=== PATIENT | female | born 1955 | race Caucasian/White ===

== ENCOUNTER 2017-07-05 15:16 | Inpatient (IN) | payer OTHER ==
[~2017-07-05] VITALS: Ht 162.6 cm; Wt 125.7 kg
[~2017-07-05 15:16] MED LIST: ATV5 PO; CHOL100010 PO; CIPR-255 PO; CYAN100T PO; CYM/30 PO; MELO7.5T5 PO; MULT-506 PO
[2017-07-05 15:24] VITALS: Ht 162.6 cm; Wt 125.7 kg
[2017-07-05] MEDS ORDERED: HYDROmorphone INJ 1 MG/ML SYR IV PRN ×2 (17:00→20:30)
[2017-07-05] MEDS ORDERED: ONDANSETRON INJ 2 MG/ML 2 ML VIAL IV PRN ×2 (17:00→20:30)
[2017-07-05] MEDS ORDERED: SODIUM CHLORIDE 0.9% 1000ML 1,000 ML IV ONE (17:00)
--- NOTE | 2017-07-05 17:12 | EMERGENCY ROOM VISIT NOTE ---
History First contact with patient: 16:37 Chief Complaint: FLANK PAIN Stated Complaint: RIGHT FLANK PAIN, UNABLE TO URINATE, NAUSEA History of Present Illness The patient is a 62 year old female who presents to the Emergency Room with complaints of right flank pain that started at approximate 5 AM this morning. She describes it as a sharp, stabbing sensation that radiates around the front of her abdomen. She has had nausea without vomiting. She has felt chills. She has not taken her temperature at home. She has tried Aleve for the pain with minimal relief. The patient has a history of kidney stones. She denies any hematuria. She does note that she hasn't urinated since 4:30 this morning. Review of Systems 10 system review performed and negative unless noted in HPI or below Past Medical/Surgical History Medical Problems: (1) ARF (acute renal failure) (2) Calculus Of Ureter (3) Chronic Kidney Disease, Unspecified (4) Depressive Disorder Nec (5) Diab Linette Wo Compl, Type Ii Or Unspec Type, Not Uncntrld (6) Fibromyalgia (7) Hyperlipidemia Nec/Nos (8) Kidney stones (9) Lumbago (10) Migraine Unspecified W/O Intract Mgrn W/O Status Migrainosus (11) Morbid Obesity (12) Parathyroid Disorder Nos (13) Solitary kidney Surgical Problems: (1) History of delivery Family History FH: diabetes mellitus FH: hypertension FH: kidney disease Social History Smoking Status: Never Smoker Alcohol Use: none Drug Use: none Marital Status: Occupation Status: retired Current/Historical Medications Scheduled Aspirin (Aspirin Ec), 81 MG PO DAILY Dapagliflozin Propanediol (Farxiga), 5 MG PO DAILY Lisinopril (Lisinopril), 1 TAB PO DAILY Meloxicam (Mobic), 15 MG PO DAILY Scheduled PRN Lorazepam (Ativan), 0.5 MG PO DIRECTED PRN for PRN Physical Exam Vital Signs Date Time Temp Pulse Resp B/P (MAP) Pulse Ox O2 Delivery O2 Flow Rate FiO2 07/05/17 19:17 96 16 101/52 92 Room Air 07/05/17 18:37 92 20 119/58 97 Room Air 07/05/17 15:24 36.6 83 22 126/70 96 Room Air Physical Exam GENERAL: 62-year-old female, in obvious discomfort,, SKIN: The skin was without rashes, erythema, edema, or bruising. HEAD: Normocephalic atraumatic. MOUTH: Mucous membranes moderately dry NECK: Supple without nuchal rigidity. No lymphadenopathy. Cervical spine is nontender. No JVD. HEART: Regular rate and rhythm without murmurs gallops or rubs. LUNGS: Clear to auscultation bilaterally without wheezes, rales or rhonchi. No accessory muscle use. ABDOMEN: Positive bowel sounds x 4.Soft, mild tenderness in the right lower quadrant, without organomegaly. No guarding or rebound tenderness. Right-sided CVA tenderness noted. MUSCULOSKELETAL: No muscle atrophy, erythema, or edema noted. . Strength 5/5 throughout. NEURO: Patient was alert and oriented to person place and time. Normal sensation to touch. No focal neurological deficits. Medical Decision & Procedures ER Provider Diagnostic Interpretation: CT abdomen and pelvis without contrast Patient Name: VENU WATSON Unit Number: [id number] Dictated: 07/05/171723 Transcribed: 07/05/171723 [employer] Printed Date/Time: [~ rep prt dt]/[~ rep prt tm] [~ rep ct labl] - [~ rep ct ivnm] [facility] [place] [address] Dictated: 07/05/171723 Transcribed: 07/05/171723 Press About Us Printed Date/Time: [~ rep prt dt]/[~ rep prt tm] [~ rep ct labl] - [~ rep ct ivnm] IMPRESSION: 1. An obstructing 11 mm stone within the right ureteropelvic junction resulting in moderate right hydronephrosis. 2. Additional right-sided nephrolithiasis. 3. Cholelithiasis. 4. Atrophic left kidney. Electronically signed by: Kane Schmidt M.D. 07/05/2017 5:31 PM Dictated Date/Time: 07/05/2017 5:24 PM The status of this report is Signed. Draft = Not yet reviewed or approved by Radiologist. Signed = Reviewed and approved by Radiologist. <AttendingPhy></AttendingPhy> <FamilyPhy>Ángela Jones M.D.</FamilyPhy> < PrimaryPhy>Ángela Jones M.D.</PrimaryPhy> <UnitNumber>[id number]</UnitNumber > <VisitNumber>[id number]</VisitNumber> <PatientName>VENU WATSON</ PatientName> <DateOfBirth>1955</DateOfBirth> <Location>[facility]</Location> < ServiceDate>07/05/17</ServiceDate> <MNE>ESINDI</MNE> <OrderingPhy>Alma Rosa Castillo PA-C</OrderingPhy> <OrderingPhyMNE>f rep ord dr baez</OrderingPhyMNE> < DictatingPhyMNE>f rep dict dr baez</DictatingPhyMNE> <CCListMNE>f rep ct mne</ CCListMNE> <AdmittingPhyMNE>f pt admit dr baez</AdmittingPhyMNE> <AttendingPhyMNE >f pt attend dr baez</AttendingPhyMNE> <ConsultingPhyMNE>f pt consult dr baez</ConsultingPhyMNE> <FamilyPhyMNE>f pt fam dr baez</FamilyPhyMNE> <OtherPhyMNE>f pt other dr baez</OtherPhyMNE> < PrimaryPhyMNE>f pt prim care dr baez</PrimaryPhyMNE> <ReferringPhyMNE>f pt referring dr baez</ReferringPhyMNE> Laboratory Results Test 07/05/17 16:58 Prothrombin Time 10.5 SECONDS (9.0-12.0) Prothromb Time International Ratio 1.0 (0.9-1.1) Activated Partial Thromboplast Time 28.0 SECONDS (21.0-31.0) Partial Thromboplastin Ratio 1.1 Estimated Average Glucose 151 mg/dl Hemoglobin A1c 6.9 % (4.5-5.6) Magnesium Level 2.1 mg/dl (1.8-2.4) Total Bilirubin 0.6 mg/dl (0.2-1) Aspartate Amino Transf (AST/SGOT) 19 U/L (15-37) Alanine Aminotransferase (ALT/SGPT) 26 U/L (12-78) Alkaline Phosphatase 96 U/L (45-117) Total Protein 8.1 gm/dl (6.4-8.2) Albumin 3.8 gm/dl (3.4-5.0) Globulin 4.3 gm/dl (2.5-4.0) Albumin/Globulin Ratio 0.9 (0.9-2) Medications Administered Medications (Trade) Dose Ordered Sig/Mumtaz Route Start Time Stop Time Status Last Admin Dose Admin Hydromorphone HCl (Dilaudid Inj) 1 mg Q2H PRN IV 07/05/17 17:00 07/05/17 21:18 DC 07/05/17 17:05 1 MG Ondansetron HCl (Zofran Inj) 4 mg Q2H PRN IV 07/05/17 17:00 07/05/17 22:41 DC 07/05/17 17:05 4 MG Sodium Chloride 1,000 ml @ 999 mls/hr Q1H1M ONCE IV 07/05/17 17:00 07/05/17 18:00 DC 07/05/17 18:37 999 MLS/HR Ceftriaxone Sodium 1 gm/ Dextrose 50 ml @ 100 mls/hr ONE STAT IV 07/05/17 19:04 07/05/17 19:33 DC 07/05/17 19:15 100 MLS/HR Sodium Chloride 1,000 ml @ 100 mls/hr Q10H IV 07/05/17 19:45 08/04/17 19:44 07/06/17 06:00 100 MLS/HR ED Course Patient was seen and examined Vital signs including blood pressure were reviewed medications list was verified with patient Labs were obtained, and a saline lock was established The patient was medicated with Dilaudid and Zofran. She was hydrated with 1 L of normal saline. Imaging was performed and reviewed Upon reevaluation, the patient's pain was much improved. We discussed the results of her workup. She was understanding. The patient was given 1 dose of ceftriaxone 1 g IV The case was discussed with my supervising physician I consulted Dr. Salinas from urology. She agreed to take the patient to the OR for a stent The case was also discussed with the [facility] hospitalist group kindly agreed to admit the patient after the procedure Medical Decision Differential diagnosis: Ureteral stone, pyelonephritis, musculoskeletal pain, viral GI illness This patient is a 62-year-old female that presents to the emergency department complaining of right flank pain. On exam, the patient was significantly uncomfortable. Her labs reveal acute renal failure with a creatinine of 2.5. This is off from her baseline of around 1. She also has leukocytosis. The patient has not been producing urine. There was only enough urine to send for a culture. She was covered with 1 dose of ceftriaxone in case of infection. The patient has an atrophic left kidney. There is concern for acute renal failure secondary to a proximal 11 mm stone on the right. The patient will go straight to the operating room for a ureteral stent. The patient's vital signs remained stable in the emergency department. This chart was completed in part utilizing [employer] Speech Voice Recognition software. Attempts were made to minimize the grammatical errors, random word insertions, pronoun errors and incomplete sentences. Any formal questions or concerns about the content, text or information contained within the body of this dictation should be directly addressed to the provider for clarification. Medication Reconcilliation Current Medication List: was personally reviewed by me Blood Pressure Screening Patient's blood pressure: Normal blood pressure Consults Consulting Physician: Additional Consults: Consulted Physician: Dr. Katelyn Rojo Impression Primary Impression: Renal colic on right side Additional Impression: ARF (acute renal failure) Departure Information Referrals Ángela Jones M.D. (PCP) Patient Instructions [facility] Problem Qualifiers
[2017-07-05] MEDS ORDERED: DAPA1TAB8 (17:13)
[2017-07-05] MEDS ORDERED: LORA-741 PO (17:13)
[2017-07-05] MEDS ORDERED: DAPA1TAB8 PO (17:13)
[2017-07-05] MEDS ORDERED: LISI2.5T5 PO (17:13)
[2017-07-05] MEDS ORDERED: ASPI81TA28 PO (17:13)
[2017-07-05 17:20] LABS: BASO % 0.3 %; BASO ABS # 0.06 K/uL (0-0.2); EOS % 1.8 %; EOS ABS # 0.36 K/uL (0-0.5); HEMATOCRIT 47.4 % (37-47); HEMOGLOBIN 15.3 g/dL (12.0-16.0); IG# 0.06 K/uL (0.00-0.02); LYMPH ABS # 1.97 K/uL (1.2-3.4); MEAN CELL VOLUME 89.9 fL (80-100); MEAN CORPUSCULAR HGB CONC 32.3 g/dl (32-36); MEAN PLATELET VOLUME 9.2 fL (7.4-10.4); MONO % 6.4 %; MONO ABS # 1.26 K/uL (0.11-0.59); NEUT % 81.2 %; NEUT ABS # 16.07 K/uL (1.4-6.5); PLATELET COUNT 252 K/uL (130-400); RED CELL DISTRIBUTION WIDTH CV 14.2 % (11.5-14.5); RED CELL DISTRIBUTION WIDTH SD 46.7 fL (36.4-46.3); WHITE BLOOD COUNT 19.78 K/uL (4.8-10.8)
--- NOTE | 2017-07-05 17:33 | DIAGNOSTIC IMAGING REPORT ---
ABDOMEN AND PELVIS CT WITHOUT CONTRAST CT DOSE: 1928.53 mGy.cm HISTORY: R flank pain hx stones TECHNIQUE: Multiaxial CT images of the abdomen and pelvis were performed without the use of intravenous and oral contrast according to the standard department stone protocol. A dose lowering technique was utilized adhering to the principles of ALARA. COMPARISON STUDY: Abdomen and pelvis CT 10/04/2014. FINDINGS: The lung bases are clear. Calcified gallstones are again noted. The unenhanced liver, spleen, and pancreas are unremarkable. Stable small adrenal gland nodules. These favor benign adenomas. Atrophic left kidney with compensatory hypertrophy of the right kidney. Moderate right perinephric edema and moderate right hydronephrosis secondary to an obstructing 11 mm stone within the right ureteropelvic junction. Bladder is underdistended and not well evaluated. No left-sided hydronephrosis. A few punctate cortical calcifications within the left kidney. A 1.6 cm stone within the right renal pelvis. There are a few additional calculi within the lower pole of the right kidney. No retroperitoneal lymphadenopathy. The uterus and ovaries are unremarkable. Suboptimal evaluation for bowel pathology due to the lack of intravenous and oral contrast. However, there is no definite bowel wall thickening or obstruction. Normal appendix. IMPRESSION: 1. An obstructing 11 mm stone within the right ureteropelvic junction resulting in moderate right hydronephrosis. 2. Additional right-sided nephrolithiasis. 3. Cholelithiasis. 4. Atrophic left kidney. Electronically signed by: Kane Schmidt M.D. 07/05/2017 5:31 PM Dictated Date/Time: 07/05/2017 5:24 PM
[2017-07-05 17:59] LABS: CREATININE 2.52 mg/dl (0.60-1.20)
[2017-07-05 18:00] LABS: ALBUMIN 3.8 gm/dl (3.4-5.0); CALCIUM 9.6 mg/dl (8.5-10.1); POTASSIUM 4.7 mmol/L (3.5-5.1)
[2017-07-05 18:02] LABS: TOTAL PROTEIN 8.1 gm/dl (6.4-8.2)
[2017-07-05] MEDS ORDERED: CEFTRIAXONE SOD INJ 1 GM in DEXTROSE 5% ADD-VANTAGE 50ML 50 ML IV STA (19:04)
[2017-07-05] MEDS ORDERED: CEFTRIAXONE SOD INJ 1 GM ADDVIAL ONE (19:11)
--- NOTE | 2017-07-05 20:15 | Urology Consultation ---
History General Date of Service: Jul 05, 2017. Chief Complaint: renal colic, solitary kidney, stones Primary Care Physician: Ángela Jones M.D. Pt seen a urologist before?: Yes If yes, why?: stones History of Present Illness I am asked by Alma Rosa Castillo PA-C to evaluate and treat patient for stones. She had a ct tonight showing a obstructing 11mm right upj stone. She has mild hydro. She has bumped her creatinine to 3 from baseline 1. she has a atrophic left kidney so right kidney is only functional kidney. She has not had fever. She has had colic pain right side since 5:30am. She has nausea no emesis. Her appetite is poor. She has had stones before. She is anuric for many hours. Imaging Imaging: CT Laboratory Results Past 24 Hours Test 07/05/17 16:58 07/05/17 19:36 Range/Units White Blood Count 19.78 4.8-10.8 K/uL Red Blood Count 5.27 4.2-5.4 M/uL Hemoglobin 15.3 12.0-16.0 g/dL Hematocrit 47.4 37-47 % Mean Corpuscular Volume 89.9 80-100 fL Mean Corpuscular Hemoglobin 29.0 25-34 pg Mean Corpuscular Hemoglobin Concent 32.3 32-36 g/dl Platelet Count 252 130-400 K/uL Mean Platelet Volume 9.2 7.4-10.4 fL Neutrophils (%) (Auto) 81.2 % Lymphocytes (%) (Auto) 10.0 % Monocytes (%) (Auto) 6.4 % Eosinophils (%) (Auto) 1.8 % Basophils (%) (Auto) 0.3 % Neutrophils # (Auto) 16.07 1.4-6.5 K/uL Lymphocytes # (Auto) 1.97 1.2-3.4 K/uL Monocytes # (Auto) 1.26 0.11-0.59 K/uL Eosinophils # (Auto) 0.36 0-0.5 K/uL Basophils # (Auto) 0.06 0-0.2 K/uL RDW Standard Deviation 46.7 36.4-46.3 fL RDW Coefficient of Variation 14.2 11.5-14.5 % Immature Granulocyte % (Auto) 0.3 % Immature Granulocyte # (Auto) 0.06 0.00-0.02 K/uL Sodium Level 140 136-145 mmol/L Potassium Level 4.7 3.5-5.1 mmol/L Chloride Level 103 98-107 mmol/L Carbon Dioxide Level 26 21-32 mmol/L Anion Gap 11.0 3-11 mmol/L Blood Urea Nitrogen 27 7-18 mg/dl Creatinine 2.52 0.60-1.20 mg/dl Est Creatinine Clear Calc Drug Dose 30.0 ml/min Estimated GFR () 22.7 Estimated GFR (Non- 19.6 BUN/Creatinine Ratio 10.7 10-20 Random Glucose 129 70-99 mg/dl Calcium Level 9.6 8.5-10.1 mg/dl Magnesium Level 2.1 1.8-2.4 mg/dl Total Bilirubin 0.6 0.2-1 mg/dl Aspartate Amino Transf (AST/SGOT) 19 15-37 U/L Alanine Aminotransferase (ALT/SGPT) 26 12-78 U/L Alkaline Phosphatase 96 45-117 U/L Total Protein 8.1 6.4-8.2 gm/dl Albumin 3.8 3.4-5.0 gm/dl Globulin 4.3 2.5-4.0 gm/dl Albumin/Globulin Ratio 0.9 0.9-2 Microbiology Results 07/05/17 Urine Culture, Received Pending Labs were reviewed and are within normal limits unless listed below. Labs are available in the chart and at [facility] Past History diabetes, hypertension, other (obesity) Past Surgical History: , ureteral stent Family History FH: diabetes mellitus FH: hypertension FH: kidney disease Social History Hx Tobacco Use In Past Year?: No Smoking: non-smoker Alcohol: never Drug use: none Marital status: Housing status: lives with family Occupation status: employed, retired Immunizations History of Influenza Vaccine: No History of Tetanus Vaccine?: Yes History of Pneumococcal: No History of Hepatitis B Vaccine: Yes History of MDRO No Allergies Coded Allergies: No Known Allergies (Verified , 07/05/17) Medications Home Medications: Home Meds and Scripts Medications Dose Route/Sig Max Daily Dose Days Date Category Aspirin Ec (Aspirin) 81 Mg Tab 81 Mg PO DAILY 07/05/17 Reported Ativan (Lorazepam) 0.5 Mg Tab 0.5 Mg PO DIRECTED PRN 07/05/17 Reported Lisinopril Unknown Strength Tab 1 Tab PO DAILY 07/05/17 Reported Farxiga (Dapagliflozin Propanediol) Unknown Strength Tab 5 Mg PO DAILY 07/05/17 Reported Mobic (Meloxicam) 7.5 Mg Tab 15 Mg PO DAILY 10/04/14 Reported Inpatient Medications: Current Inpatient Medications Medications (Trade) Dose Ordered Sig/Mumtaz Route Start Time Stop Time Status Last Admin Dose Admin Hydromorphone HCl (Dilaudid Inj) 1 mg Q2H PRN IV 07/05/17 17:00 07/19/17 16:59 07/05/17 17:05 1 MG Ondansetron HCl (Zofran Inj) 4 mg Q2H PRN IV 07/05/17 17:00 08/04/17 16:59 07/05/17 17:05 4 MG Sodium Chloride 1,000 ml @ 100 mls/hr Q10H IV 07/05/17 19:45 08/04/17 19:44 Review of Systems Review of Systems Constitutional: No fever, No chills Neurological: No dizzy Endocrine: + excessive thirst, + too cold, + tired/sluggish Gastrointestinal: + abdominal pain, + indigestion, + nausea Cardiovascular: No chest pain, No palpitations Respiratory: No shortness of breath, No chronic cough Female : + weak stream, + kidney stones Physical Exam Vital Signs: Vital Signs Past 12 Hours Date Time Temp Pulse Resp B/P (MAP) Pulse Ox O2 Delivery O2 Flow Rate FiO2 07/05/17 19:17 96 16 101/52 92 Room Air 07/05/17 18:37 92 20 119/58 97 Room Air 07/05/17 15:24 36.6 83 22 126/70 96 Room Air Physical Exam: General Appearance: WD/WN, no apparent distress, + obese Eyes: bilateral eyes normal inspection ENT: hearing grossly normal Neck: no adenopathy, no JVD, trachea midline Respiratory/Chest: normal breath sounds, no respiratory distress, no accessory muscle use Cardiovascular: regular rate, rhythm Extremities: non-tender, no pedal edema, no calf tenderness Neurologic/Psychiatric: alert, normal mood/affect, oriented x 3 Skin: normal color, warm/dry, no rash Lymphatic: no adenopathy Assessment & Plan Assessment & Plan Imaging: CT obstructing right upj stone solitary kidney renal failure plan cysto right stent under sedation. I described procedure she had ceftriaxone in ER. stay in hospital 1-2 days to observe renal recovery.
[2017-07-05] MEDS ORDERED: INSULIN ASPART 100 UNITS/ML 3 ML PEN SC ONE (20:25)
[2017-07-05] MEDS ORDERED: MIDAZOLAM HCL 1 MG/ML 2ML VIAL ONE (20:27)
[2017-07-05] MEDS ORDERED: FENTANYL CITRATE INJ 50 MCG/1 ML 2 ML VIAL ONE (20:28)
[2017-07-05] MEDS ORDERED: ATROPINE SULFATE 0.1 MG/ML 5ML SYR IV PRN (20:30)
[2017-07-05] MEDS ORDERED: LABETALOL HCL IV 5 MG/ML 20ML IV PRN (20:30)
[2017-07-05] MEDS ORDERED: ACETAMINOPHEN 325 MG TAB PO PRN (20:30)
[2017-07-05] MEDS ORDERED: HYDROmorphone INJ 0.5 MG/0.5 ML SYR IV PRN (20:30)
[2017-07-05] MEDS ORDERED: FENTANYL CITRATE INJ 50 MCG/1 ML 2 ML VIAL IV PRN (20:30)
[2017-07-05] MEDS ORDERED: TRAMADOL HCL 50 MG TAB PO PRN (20:30)
[2017-07-05] MEDS ORDERED: MEPERIDINE HCL 25 MG/ML CARP IV PRN (20:30)
[2017-07-05] MEDS ORDERED: GLUCOSE 40% GEL 15 GM TUBE PO PRN (20:30)
[2017-07-05] MEDS ORDERED: GLUCAGON FOR INJ 1 MG VIAL SQ PRN (20:30)
[2017-07-05] MEDS ORDERED: EpHEDrine SULFATE INJ 50 MG/ML AMP IV PRN (20:30)
[2017-07-05] MEDS ORDERED: GLUCOSE 10 TABS/TUBE PO PRN (20:30)
[2017-07-05] MEDS ORDERED: DEXTROSE 50% 50 ML SYR IV PRN (20:30)
[2017-07-05] MEDS ORDERED: PROCHLORPERAZINE INJ 5 MG in SYRINGE 4 ML IV PRN (20:30)
[2017-07-05] MEDS ORDERED: PROPOFOL IV EMULSION 10 MG/ML 20 ML VIAL IV ONE (20:50)
[2017-07-05] MEDS ORDERED: LIDOCAINE HCL 2% 2 ML VIAL (20MG/ML) ONE (20:50)
[2017-07-05 21:00] VITALS: BP 96/58; PULSE 86; TEMP 36.9; O2SAT 94
[2017-07-05] MEDS: INSULIN ASPART 100 UNITS/ML 3 ML PEN SC SCH (21:00)
--- NOTE | 2017-07-05 21:06 | [facility] Operative Report ---
Operative Report Operative Date Jul 05, 2017. 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 Description of Procedure Patient was sedated and placed in lithotomy position. Her genitals were prepped and draped in sterile fashion. Time out held with team. I placed a half speculum in vagina for retraction to aid visualization of urethra. I placed a 21 fr rigid cystoscope to bladder. The urethra is unremarkable. The bladder was completely empty. The UOs are medially displaced round open shape on right. I placed a road runner wire up right ureter and placed a 24 centimeter 6 Fr double J stent easily. There is brisk efflux after placement. The stones are radio-lucent. I left bladder empty and concluded case. She transferred to hospital room 355-2 under my escort, in stable condition. 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 Any exceptions are noted below.
[2017-07-05 21:30] VITALS: BP 95/60; PULSE 81; TEMP 36.9; O2SAT 96
--- NOTE | 2017-07-05 21:42 | DIAGNOSTIC IMAGING REPORT ---
FLUOROSCOPIC IMAGE FROM RIGHT RETROGRADE EXAM CLINICAL HISTORY: RT SIDED STENT PLACEMENT COMPARISON STUDY: KUB October 04, 2014. Fluoroscopy time: 3.4 seconds. FINDINGS: Single fluoroscopic images from right retrograde exam demonstrates a wire within the right ureter. IMPRESSION: Fluoroscopic images from right retrograde exam. Electronically signed by: Benedicto Santoyo M.D. 07/05/2017 9:40 PM Dictated Date/Time: 07/05/2017 9:40 PM
[2017-07-05 22:00] VITALS: BP 103/66; PULSE 87; TEMP 37; O2SAT 94
[2017-07-05] MEDS: SODIUM CHLORIDE 0.9% 1000ML 1,000 ML IV SCH (22:05)
[2017-07-05 23:00] VITALS: BP 95/59; PULSE 86; TEMP 37.1; O2SAT 93
--- NOTE | 2017-07-05 23:25 | Anesthesiology Progress Note ---
Anesthesia Post Op Note Date & Time Jul 05, 2017 at 23:25 Vital Signs Pain Intensity: 0.0 Vital Signs Past 12 Hours Date Time Temp Pulse Resp B/P (MAP) Pulse Ox O2 Delivery O2 Flow Rate FiO2 07/05/17 22:00 37.0 87 18 103/66 (78) 94 Room Air 07/05/17 21:30 36.9 81 18 95/60 (72) 96 Nasal Cannula 2.0 07/05/17 21:00 36.9 86 18 96/58 (71) 94 Nasal Cannula 2.0 07/05/17 21:00 94 Nasal Cannula 2.0 07/05/17 21:00 94 Nasal Cannula 2.0 07/05/17 19:17 96 16 101/52 92 Room Air 07/05/17 18:37 92 20 119/58 97 Room Air 07/05/17 15:24 36.6 83 22 126/70 96 Room Air Notes Mental Status: alert / awake / arousable, participated in evaluation Pt Amnestic to Procedure: Yes Nausea / Vomiting: adequately controlled Pain: adequately controlled Airway Patency, RR, SpO2: stable & adequate BP & HR: stable & adequate Hydration State: stable & adequate Anesthetic Complications: no major complications apparent
[2017-07-06] VITALS: BP 103/66; PULSE 78; TEMP 36.9; O2SAT 91
[2017-07-06] MEDS: HEPARIN SOD 5000 UNIT/0.5 ML CARP SQ SCH ×4 (00:09→21:30)
[2017-07-06 02:24] VITALS: BP 108/70; PULSE 84; TEMP 36.8; O2SAT 92
[2017-07-06] MEDS: SODIUM CHLORIDE 0.9% 1000ML 1,000 ML IV SCH ×2 (06:00→16:07)
[2017-07-06 06:27] LABS: BASO % 0.4 %; BASO ABS # 0.06 K/uL (0-0.2); EOS % 3.4 %; EOS ABS # 0.56 K/uL (0-0.5); HEMATOCRIT 38.9 % (37-47); HEMOGLOBIN 12.4 g/dL (12.0-16.0); IG# 0.05 K/uL (0.00-0.02); LYMPH % 15.4 %; LYMPH ABS # 2.57 K/uL (1.2-3.4); MEAN CELL VOLUME 90.5 fL (80-100); MEAN CORPUSCULAR HEMOGLOBIN 28.8 pg (25-34); MEAN CORPUSCULAR HGB CONC 31.9 g/dl (32-36); MEAN PLATELET VOLUME 9.2 fL (7.4-10.4); MONO % 8.1 %; MONO ABS # 1.36 K/uL (0.11-0.59); NEUT % 72.4 %; PLATELET COUNT 222 K/uL (130-400); RED CELL DISTRIBUTION WIDTH CV 14.7 % (11.5-14.5); RED CELL DISTRIBUTION WIDTH SD 48.9 fL (36.4-46.3)
[2017-07-06 07:20] LABS: CALCIUM 8.1 mg/dl (8.5-10.1); CREATININE 2.49 mg/dl (0.60-1.20); POTASSIUM 4.2 mmol/L (3.5-5.1)
[2017-07-06 07:24] VITALS: BP 91/59; PULSE 65; TEMP 36.8; O2SAT 93
--- NOTE | 2017-07-06 07:30 | HISTORY & PHYSICAL EXAMINATION ---
DATE OF ADMISSION: 07/05/2017 PRIMARY CARE PHYSICIAN: Dr. Jones. CHIEF COMPLAINT: Right flank pain. HISTORY OF PRESENT ILLNESS: History obtained from patient and records. Medical history significant for hypertension, DM2 on oral meds, hx urolithiasis , history of solitary kidney R. Recent confinement 09/24/2014 for urolithiasis. Patient underwent cystoscopy, removal of bladder stone. One day history of right flank pain, sharp, stabbing with nausea, no emesis. Patient noted hematuria, some chills, no fever. Patient admits to not drinking as much water. At the Emergency Room. Received ceftriaxone for possible UTI. MEDICAL HISTORY: As above. SURGERIES: She has had urologic procedures. HOME MEDICATIONS: Include aspirin, Farxiga, lisinopril, Ativan, Mobic. ALLERGIES: No known drug allergies. FAMILY HISTORY: Mood disorder, diabetes, alcoholism. PERSONAL AND SOCIAL HISTORY: Nonsmoker, no chronic intake of alcoholic beverages. 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 REVIEW OF SYSTEMS: As per HPI, all 10 systems reviewed. All other ROS negative. PHYSICAL EXAMINATION: VITAL SIGNS: Blood pressure was noted to be 119/50, pulse rate 92, RR 22, T 37 O2 sats 98 RA. GENERAL: Obese, slightly uncomfortable. Looks younger for stated age. SKIN: Normal color, warm. HEENT: [place] palpebral conjunctivae. No ptosis. Dry mucosa. NECK: Short, supple. CHEST: CTA. No tenderness. HEART: Regular rate and rhythm, no murmur. ABDOMEN: Some distention, nontender. BACK: Right flank tenderness. EXTREMITIES: Minimal LE edema. No tenderness. No gross deformity. NEUROLOGIC: Coherent. No gross focality. LABORATORY DATA: Hemoglobin was noted to be 15.2, hematocrit 47.4, white cell count 19.7, platelets 252. Sodium 140, potassium 4.7, chloride 103, CO2 26, BUN 27, creatinine 2.5, glucose 129 Hemoglobin A1c January [address] abdomen and pelvis, obstructing 11 mm stone in the right UPJ with moderate hydronephrosis, cholelithiasis, atrophic left kidney. UA, trace ketones, glucose, occult blood, WBC, RBC greater than 30 epithelial cells. ASSESSMENT: 1. Acute renal failure secondary to obstructive uropathy. History of solitary kidney. No sepsis. 2. Hypertension, stable. 3. DM2 on oral meds well controlled as of recent outpatient hemoglobin A1c from last year. PLAN: GMF Monitor creatinine response to IV fluids. Hold home ACEI, NSAIDs until creatinine at baseline. Urology consult. RE obstructive uropathy (ER provider already in touch with Dr. Salinas. Dr. Salinas to do urgent procedure tonight.) ISS BG goal 140-180. Patient due for hemoglobin A1c recheck. DVT prophylaxis, Heparin subQ. Full code. MTDD
[2017-07-06] MEDS: INSULIN ASPART 100 UNITS/ML 3 ML PEN SC SCH ×4 (07:56→20:58)
[2017-07-06 08:12] LABS: HEMOGLOBIN A1C 6.9 % (4.5-5.6)
--- NOTE | 2017-07-06 08:55 | Progress Note ---
Subjective Date of Service: Jul 06, 2017. Subjective Pt evaluation today including: conversation w/ patient, physical exam, chart review, lab review Voiding: no voiding problems Patient feels ok. tired. voiding every 2 hours. no fevers. Review of Systems Constitutional: + fatigue, No fever, No chills, No sweats Respiratory: No shortness of breath Cardiac: No chest pain, No palpitations Abdomen: No pain, No nausea, No constipation Female : + dysuria, + urinary frequency, No hematuria Endo: + fatigue, + excessive urination Objective Vital Signs Date Time Temp Pulse Resp B/P (MAP) Pulse Ox O2 Delivery O2 Flow Rate FiO2 07/06/17 07:24 36.8 65 16 91/59 (70) 93 Room Air 07/06/17 02:24 36.8 84 16 108/70 (83) 92 Room Air 07/06/17 00:00 36.9 78 16 103/66 (78) 91 Room Air 07/05/17 23:45 Room Air 07/05/17 23:00 37.1 86 16 95/59 (71) 93 Room Air 07/05/17 22:00 37.0 87 18 103/66 (78) 94 Room Air 07/05/17 21:30 36.9 81 18 95/60 (72) 96 Nasal Cannula 2.0 07/05/17 21:00 36.9 86 18 96/58 (71) 94 Nasal Cannula 2.0 07/05/17 21:00 94 Nasal Cannula 2.0 07/05/17 21:00 94 Nasal Cannula 2.0 07/05/17 19:17 96 16 101/52 92 Room Air 07/05/17 18:37 92 20 119/58 97 Room Air 07/05/17 15:24 36.6 83 22 126/70 96 Room Air Physical Exam General Appearance: WD/WN, no apparent distress, + obese Eyes: normal inspection ENT: hearing grossly normal Respiratory/Chest: no respiratory distress, no accessory muscle use Neurologic/Psychiatric: alert, normal mood/affect, oriented x 3 Skin: normal color, warm/dry, no rash Laboratory Results Last 24 Hours Test 07/05/17 16:58 07/05/17 21:35 07/06/17 00:00 07/06/17 06:00 White Blood Count 19.78 K/uL 16.70 K/uL Red Blood Count 5.27 M/uL 4.30 M/uL Hemoglobin 15.3 g/dL 12.4 g/dL Hematocrit 47.4 % 38.9 % Mean Corpuscular Volume 89.9 fL 90.5 fL Mean Corpuscular Hemoglobin 29.0 pg 28.8 pg Mean Corpuscular Hemoglobin Concent 32.3 g/dl 31.9 g/dl Platelet Count 252 K/uL 222 K/uL Mean Platelet Volume 9.2 fL 9.2 fL Neutrophils (%) (Auto) 81.2 % 72.4 % Lymphocytes (%) (Auto) 10.0 % 15.4 % Monocytes (%) (Auto) 6.4 % 8.1 % Eosinophils (%) (Auto) 1.8 % 3.4 % Basophils (%) (Auto) 0.3 % 0.4 % Neutrophils # (Auto) 16.07 K/uL 12.10 K/uL Lymphocytes # (Auto) 1.97 K/uL 2.57 K/uL Monocytes # (Auto) 1.26 K/uL 1.36 K/uL Eosinophils # (Auto) 0.36 K/uL 0.56 K/uL Basophils # (Auto) 0.06 K/uL 0.06 K/uL RDW Standard Deviation 46.7 fL 48.9 fL RDW Coefficient of Variation 14.2 % 14.7 % Immature Granulocyte % (Auto) 0.3 % 0.3 % Immature Granulocyte # (Auto) 0.06 K/uL 0.05 K/uL Prothrombin Time 10.5 SECONDS Prothromb Time International Ratio 1.0 Activated Partial Thromboplast Time 28.0 SECONDS Partial Thromboplastin Ratio 1.1 Sodium Level 140 mmol/L 138 mmol/L Potassium Level 4.7 mmol/L 4.2 mmol/L Chloride Level 103 mmol/L 106 mmol/L Carbon Dioxide Level 26 mmol/L 25 mmol/L Anion Gap 11.0 mmol/L 7.0 mmol/L Blood Urea Nitrogen 27 mg/dl 34 mg/dl Creatinine 2.52 mg/dl 2.49 mg/dl Est Creatinine Clear Calc Drug Dose 30.0 ml/min 30.3 ml/min Estimated GFR () 22.7 23.0 Estimated GFR (Non- 19.6 19.9 BUN/Creatinine Ratio 10.7 13.7 Random Glucose 129 mg/dl 129 mg/dl Estimated Average Glucose 151 mg/dl Hemoglobin A1c 6.9 % Calcium Level 9.6 mg/dl 8.1 mg/dl Magnesium Level 2.1 mg/dl Total Bilirubin 0.6 mg/dl Aspartate Amino Transf (AST/SGOT) 19 U/L Alanine Aminotransferase (ALT/SGPT) 26 U/L Alkaline Phosphatase 96 U/L Total Protein 8.1 gm/dl Albumin 3.8 gm/dl Globulin 4.3 gm/dl Albumin/Globulin Ratio 0.9 Bedside Glucose 127 mg/dl Urine Color BROWN Urine Appearance CLOUDY Urine pH 5.0 Urine Specific [place] 1.020 Urine Protein 2+ Urine Glucose (UA) 3+ Urine Ketones TRACE Urine Occult Blood 3+ Urine Nitrite NEG Urine Bilirubin NEG Urine Urobilinogen NEG Urine Leukocyte Esterase NEG Urine RBC >30 /hpf Urine WBC >30 /hpf Urine Epithelial Cells >30 /lpf Urine Bacteria 3+ Test 07/06/17 07:48 Bedside Glucose 115 mg/dl Assessment and Plan obstructing right upj stone with acute renal failure POD#1 stent placement urine output good creatinine slightly down will observe another day in hospital hopeful that tomorrows cr will be better plan stone removal in about 1-2 weeks as outpatient day surgery
--- NOTE | 2017-07-06 13:13 | Progress Note ---
Medicine Progress Note Date & Time of Visit: Jul 06, 2017 at 12:54. Subjective Pt was seen and examined Lying in bed with no distress Pt said that she feels tired because they kept waking her up last night Denies any chest pain, palpitation,dizziness and SOB Objective Last 8 Hrs Date Time Temp Pulse Resp B/P (MAP) Pulse Ox O2 Delivery O2 Flow Rate FiO2 07/06/17 09:50 Room Air 07/06/17 07:24 36.8 65 16 91/59 (70) 93 Room Air Physical Exam: General- No acute distress Head- atraumatic Eyes- PERRL, EOMI ENT- oropharynx clear Neck- supple, no JVD Lungs- No wheezing Heart- regular rhythm Abdomen- normal bowel sounds Extremities- no calf tenderness Neuro- alert, oriented x 3; PERRL, EOMI Skin- warm & dry Laboratory Results: Last 24 Hours Test 07/05/17 16:58 07/05/17 21:35 07/06/17 00:00 07/06/17 06:00 White Blood Count 19.78 K/uL 16.70 K/uL Red Blood Count 5.27 M/uL 4.30 M/uL Hemoglobin 15.3 g/dL 12.4 g/dL Hematocrit 47.4 % 38.9 % Mean Corpuscular Volume 89.9 fL 90.5 fL Mean Corpuscular Hemoglobin 29.0 pg 28.8 pg Mean Corpuscular Hemoglobin Concent 32.3 g/dl 31.9 g/dl Platelet Count 252 K/uL 222 K/uL Mean Platelet Volume 9.2 fL 9.2 fL Neutrophils (%) (Auto) 81.2 % 72.4 % Lymphocytes (%) (Auto) 10.0 % 15.4 % Monocytes (%) (Auto) 6.4 % 8.1 % Eosinophils (%) (Auto) 1.8 % 3.4 % Basophils (%) (Auto) 0.3 % 0.4 % Neutrophils # (Auto) 16.07 K/uL 12.10 K/uL Lymphocytes # (Auto) 1.97 K/uL 2.57 K/uL Monocytes # (Auto) 1.26 K/uL 1.36 K/uL Eosinophils # (Auto) 0.36 K/uL 0.56 K/uL Basophils # (Auto) 0.06 K/uL 0.06 K/uL RDW Standard Deviation 46.7 fL 48.9 fL RDW Coefficient of Variation 14.2 % 14.7 % Immature Granulocyte % (Auto) 0.3 % 0.3 % Immature Granulocyte # (Auto) 0.06 K/uL 0.05 K/uL Prothrombin Time 10.5 SECONDS Prothromb Time International Ratio 1.0 Activated Partial Thromboplast Time 28.0 SECONDS Partial Thromboplastin Ratio 1.1 Sodium Level 140 mmol/L 138 mmol/L Potassium Level 4.7 mmol/L 4.2 mmol/L Chloride Level 103 mmol/L 106 mmol/L Carbon Dioxide Level 26 mmol/L 25 mmol/L Anion Gap 11.0 mmol/L 7.0 mmol/L Blood Urea Nitrogen 27 mg/dl 34 mg/dl Creatinine 2.52 mg/dl 2.49 mg/dl Est Creatinine Clear Calc Drug Dose 30.0 ml/min 30.3 ml/min Estimated GFR () 22.7 23.0 Estimated GFR (Non- 19.6 19.9 BUN/Creatinine Ratio 10.7 13.7 Random Glucose 129 mg/dl 129 mg/dl Estimated Average Glucose 151 mg/dl Hemoglobin A1c 6.9 % Calcium Level 9.6 mg/dl 8.1 mg/dl Magnesium Level 2.1 mg/dl Total Bilirubin 0.6 mg/dl Aspartate Amino Transf (AST/SGOT) 19 U/L Alanine Aminotransferase (ALT/SGPT) 26 U/L Alkaline Phosphatase 96 U/L Total Protein 8.1 gm/dl Albumin 3.8 gm/dl Globulin 4.3 gm/dl Albumin/Globulin Ratio 0.9 Bedside Glucose 127 mg/dl Urine Color BROWN Urine Appearance CLOUDY Urine pH 5.0 Urine Specific [place] 1.020 Urine Protein 2+ Urine Glucose (UA) 3+ Urine Ketones TRACE Urine Occult Blood 3+ Urine Nitrite NEG Urine Bilirubin NEG Urine Urobilinogen NEG Urine Leukocyte Esterase NEG Urine RBC >30 /hpf Urine WBC >30 /hpf Urine Epithelial Cells >30 /lpf Urine Bacteria 3+ Test 07/06/17 07:48 07/06/17 11:50 Bedside Glucose 115 mg/dl 119 mg/dl Date/Time Source Procedure Growth Status 07/05/17 16:45 Urine,Catheterized Urine Culture - Preliminary PIN-POINT GROWTH PRESENT, REINCUBATING. Resulted Assessment & Plan Right ureteral stone with obstruction Present with right flank pain on admission CT Abd/Pelvis showed An obstructing 11 mm stone within the right ureteropelvic junction resulting in moderate right hydronephrosis. S/P cysto right stent placement performed by dr. Salinas Received ceftriaxone Plan for stone removal as an outpatient in 1 - 2 week Pain control Follow up urine cx Acute Renal Failure Secondary to obstructive uropathy. Creatine on admission 2.5, slightly trending down to 2.4 Creatine baseline 1 Continue IVF Hold ACEI and avoid nephrotoxic agents Elevated WBC WBC on admission 19K, trending down to 16K Received IV Rocephin Afebrile UA negative for nitrite and leukocytes, +bacteria Urine cx pending Will continue abx if culture positive Hypertension Lisinopril on hold stable. DM type 2 Controlled Hba1c 6.9 Oral med has been on hold DVT PX on heparin sub CODE STATUS FULL CODE Consultants: Urology Current Inpatient Medications: Current Inpatient Medications Medications (Trade) Dose Ordered Sig/Mumtaz Route Start Time Stop Time Status Last Admin Dose Admin Sodium Chloride 1,000 ml @ 100 mls/hr Q10H IV 07/05/17 19:45 08/04/17 19:44 07/06/17 06:00 100 MLS/HR Heparin Sodium (Porcine) (Heparin Sq 5000 Unit/0.5ml) 5,000 unit Q8 SQ 07/05/17 23:00 08/04/17 22:59 07/06/17 06:04 5,000 UNIT Acetaminophen (Tylenol Tab) 650 mg Q4H PRN PO 07/05/17 20:30 08/04/17 20:29 Insulin Aspart (novoLOG ASPART) SLIDING SCALE If C... ACHS SC 07/05/17 21:00 08/04/17 20:59 Glucose (Glucose 40% Gel) 15-30 GRAMS 15 GRAMS... UD PRN PO 07/05/17 20:30 08/04/17 20:29 Glucose (Glucose Chew Tab) 4-8 Tablets 4 Tabl... UD PRN PO 07/05/17 20:30 08/04/17 20:29 Dextrose (Dextrose 50% 50ML Syringe) 25-50ML OF 50% DW IV FOR... UD PRN IV 07/05/17 20:30 08/04/17 20:29 Glucagon (Glucagon Inj) 1 mg UD PRN SQ 07/05/17 20:30 08/04/17 20:29 Hydromorphone HCl (Dilaudid Inj) 0.5 mg Q3H PRN IV 07/05/17 20:30 07/19/17 20:29 07/05/17 23:53 0.5 MG Tramadol HCl (Ultram Tab) not relieved ... Q6H PRN PO 07/05/17 20:30 08/04/17 20:29 Prochlorperazine Edisylate 5 mg/ Syringe 5 ml @ 1 mls/min Q6H PRN IV 07/05/17 20:30 08/04/17 20:29 Tamsulosin HCl (Flomax Cap) 0.4 mg HS PO 07/06/17 21:00 08/05/17 20:59
[2017-07-06 16:00] VITALS: BP 124/74; PULSE 76; TEMP 37; O2SAT 95
[2017-07-06] MEDS ORDERED: TAMSULOSIN HCL 0.4 MG CAP PO SCH (21:00)
[2017-07-06 22:52] VITALS: BP 114/64; PULSE 87; TEMP 37.3; O2SAT 94
[2017-07-07] MEDS: SODIUM CHLORIDE 0.9% 1000ML 1,000 ML IV SCH ×2 (02:11→11:52)
[2017-07-07] MEDS: HEPARIN SOD 5000 UNIT/0.5 ML CARP SQ SCH ×2 (06:32→14:00)
[2017-07-07 07:25] VITALS: BP 80/50; PULSE 70; TEMP 36.8; O2SAT 90
[2017-07-07 07:30] VITALS: O2SAT 90
[2017-07-07 07:35] VITALS: BP 97/62
[2017-07-07 07:54] LABS: CALCIUM 8.5 mg/dl (8.5-10.1); CREATININE 1.53 mg/dl (0.60-1.20); POTASSIUM 4.2 mmol/L (3.5-5.1)
[2017-07-07 08:52] LABS: BASO % 0.4 %; BASO ABS # 0.04 K/uL (0-0.2); EOS ABS # 0.49 K/uL (0-0.5); HEMATOCRIT 38.3 % (37-47); HEMOGLOBIN 12.1 g/dL (12.0-16.0); IG# 0.02 K/uL (0.00-0.02); LYMPH % 30.4 %; LYMPH ABS # 2.95 K/uL (1.2-3.4); MEAN CELL VOLUME 91.6 fL (80-100); MEAN CORPUSCULAR HEMOGLOBIN 28.9 pg (25-34); MEAN CORPUSCULAR HGB CONC 31.6 g/dl (32-36); MEAN PLATELET VOLUME 9.6 fL (7.4-10.4); MONO % 11.9 %; MONO ABS # 1.16 K/uL (0.11-0.59); NEUT % 52.1 %; NEUT ABS # 5.05 K/uL (1.4-6.5); PLATELET COUNT 225 K/uL (130-400); RED CELL DISTRIBUTION WIDTH CV 14.8 % (11.5-14.5); RED CELL DISTRIBUTION WIDTH SD 49.7 fL (36.4-46.3); WHITE BLOOD COUNT 9.71 K/uL (4.8-10.8)
[2017-07-07] MEDS: INSULIN ASPART 100 UNITS/ML 3 ML PEN SC SCH ×2 (09:07→12:46)
[2017-07-07 15:05] VITALS: BP 109/71; PULSE 61; TEMP 36.9; O2SAT 93
--- NOTE | 2017-07-07 15:35 | Progress Note ---
Medicine Progress Note Date & Time of Visit: Jul 07, 2017 at 15:20. Subjective Pt was seen and examined Sitting in chair comfortable with no distress Pt said that she feels fine She said that she does not have any flank pain anymore She said that her urine is cleared now and denies any urinary discomfort Denies any chest pain, palpitation, dizziness and fever Objective Last 8 Hrs Date Time Temp Pulse Resp B/P (MAP) Pulse Ox O2 Delivery O2 Flow Rate FiO2 07/07/17 07:35 97/62 (74) 07/07/17 07:30 90 Room Air 07/07/17 07:25 36.8 70 16 80/50 (60) 90 Room Air Physical Exam: General- No acute distress Head- atraumatic Eyes- PERRL, EOMI ENT- oropharynx clear Neck- supple, no JVD Lungs- No wheezing Heart- regular rhythm Abdomen- normal bowel sounds Extremities- no calf tenderness Neuro- alert, oriented x 3; PERRL, EOMI Skin- warm & dry Laboratory Results: Last 24 Hours Test 07/06/17 17:23 07/06/17 20:50 07/07/17 05:38 07/07/17 08:12 Bedside Glucose 104 mg/dl 109 mg/dl 128 mg/dl White Blood Count 9.71 K/uL Red Blood Count 4.18 M/uL Hemoglobin 12.1 g/dL Hematocrit 38.3 % Mean Corpuscular Volume 91.6 fL Mean Corpuscular Hemoglobin 28.9 pg Mean Corpuscular Hemoglobin Concent 31.6 g/dl Platelet Count 225 K/uL Mean Platelet Volume 9.6 fL Neutrophils (%) (Auto) 52.1 % Lymphocytes (%) (Auto) 30.4 % Monocytes (%) (Auto) 11.9 % Eosinophils (%) (Auto) 5.0 % Basophils (%) (Auto) 0.4 % Neutrophils # (Auto) 5.05 K/uL Lymphocytes # (Auto) 2.95 K/uL Monocytes # (Auto) 1.16 K/uL Eosinophils # (Auto) 0.49 K/uL Basophils # (Auto) 0.04 K/uL RDW Standard Deviation 49.7 fL RDW Coefficient of Variation 14.8 % Immature Granulocyte % (Auto) 0.2 % Immature Granulocyte # (Auto) 0.02 K/uL Sodium Level 139 mmol/L Potassium Level 4.2 mmol/L Chloride Level 108 mmol/L Carbon Dioxide Level 23 mmol/L Anion Gap 8.0 mmol/L Blood Urea Nitrogen 26 mg/dl Creatinine 1.53 mg/dl Est Creatinine Clear Calc Drug Dose 49.4 ml/min Estimated GFR () 41.5 Estimated GFR (Non- 35.8 BUN/Creatinine Ratio 16.8 Random Glucose 119 mg/dl Calcium Level 8.5 mg/dl Test 07/07/17 11:48 Bedside Glucose 122 mg/dl Assessment & Plan Right ureteral stone with obstruction Present with right flank pain on admission CT Abd/Pelvis showed An obstructing 11 mm stone within the right ureteropelvic junction resulting in moderate right hydronephrosis. S/P day#2 cysto right stent placement performed by dr. Salinas Received 1 dose ceftriaxone Urine cx growth lactobacillus species Denies any urinary symptoms Case discussed with Dr. Salinas and ok from urology standpoint to discharge home Plan for stone removal as an outpatient in 1 - 2 week Pain control Stable Acute Renal Failure Secondary to obstructive uropathy. Creatine on admission 2.5, creatine improved today to 1.5 Creatine baseline 1 Continue IVF Continue holding ACEI and avoid nephrotoxic agents Check BMP within 1 week Elevated WBC WBC on admission 19K, trending down wnl today Received IV Rocephin x1 Afebrile UA negative for nitrite and leukocytes, +bacteria Urine cx growth lactobacillus species Resolved Hypertension BP in low side Continue holding Lisinopril Monitor BMP stable. DM type 2 Controlled Hba1c 6.9 Will resume oral med on discharge DVT PX on heparin sub CODE STATUS FULL CODE Disposition Follow up with urology Dr. Salinas between 1 to 2 week for stent removal Follow up with PCP Dr. Jones on 07/09 @ 12:45 PM Check BMP within 1 week Continue holding lisinopril for now until instructing by your PCP to resume it. Consultants: Urology Current Inpatient Medications: Current Inpatient Medications Medications (Trade) Dose Ordered Sig/Mumtaz Route Start Time Stop Time Status Last Admin Dose Admin Sodium Chloride 1,000 ml @ 100 mls/hr Q10H IV 07/05/17 19:45 08/04/17 19:44 07/07/17 11:52 100 MLS/HR Heparin Sodium (Porcine) (Heparin Sq 5000 Unit/0.5ml) 5,000 unit Q8 SQ 07/05/17 23:00 08/04/17 22:59 07/07/17 06:32 5,000 UNIT Acetaminophen (Tylenol Tab) 650 mg Q4H PRN PO 07/05/17 20:30 08/04/17 20:29 Insulin Aspart (novoLOG ASPART) SLIDING SCALE If C... ACHS SC 07/05/17 21:00 08/04/17 20:59 Glucose (Glucose 40% Gel) 15-30 GRAMS 15 GRAMS... UD PRN PO 07/05/17 20:30 08/04/17 20:29 Glucose (Glucose Chew Tab) 4-8 Tablets 4 Tabl... UD PRN PO 07/05/17 20:30 08/04/17 20:29 Dextrose (Dextrose 50% 50ML Syringe) 25-50ML OF 50% DW IV FOR... UD PRN IV 07/05/17 20:30 08/04/17 20:29 Glucagon (Glucagon Inj) 1 mg UD PRN SQ 07/05/17 20:30 08/04/17 20:29 Hydromorphone HCl (Dilaudid Inj) 0.5 mg Q3H PRN IV 07/05/17 20:30 07/19/17 20:29 07/05/17 23:53 0.5 MG Tramadol HCl (Ultram Tab) not relieved ... Q6H PRN PO 07/05/17 20:30 08/04/17 20:29 07/06/17 20:29 50 MG Prochlorperazine Edisylate 5 mg/ Syringe 5 ml @ 1 mls/min Q6H PRN IV 07/05/17 20:30 08/04/17 20:29 Tamsulosin HCl (Flomax Cap) 0.4 mg HS PO 07/06/17 21:00 08/05/17 20:59 07/06/17 21:31 0.4 MG
[2017-07-07] MEDS ORDERED: FLM4 PO (15:36)
--- NOTE | 2017-07-07 15:46 | Discharge Instructions ---
Discharge Instructions Date of Service Jul 07, 2017. Admission Reason for Admission: ARF Discharge Discharge Diagnosis / Problem: Right ureteral stone with obstruction, Acute Renal Failure Discharge Goals Goal(s): Decrease discomfort, Improve function, Improve disease control Activity Recommendations Activity Limitations: resume your previous activity (as tolerated) . Instructions / Follow-Up Instructions / Follow-Up Follow up with urology Dr. Salinas between 1 to 2 week for stent removal ( please call for the appointment) Follow up with your primary care provider Dr. Jones on 07/09 @ 12:45 PM Monitor blood pressure Check BMP within 1 week to monitor your kidney function Follow a healthy diabetic diet and limiting concentrated sweet intake OK to take Tylenol for pain Continue holding lisinopril for now until instructing by your PCP to resume it. Hold Meloxicam for now No NSAIDs such as aleve, advil, naproxen, meloxicam, ibuprofen, Motrin, ... for now until kidney function back to baseline Current Hospital Diet Patient's current hospital diet: Diabetes Type 2 Diet Discharge Diet Recommended Diet: Diabetes Type 2 Diet Procedures Procedures Performed: cysto right stent palcement Pending Studies Studies pending at discharge: no Laboratory Results Hemoglobin A1c Test 07/05/17 16:58 Range/Units Estimated Average Glucose 151 mg/dl Hemoglobin A1c 6.9 H 4.5-5.6 % Medical Emergencies . Who to Call and When: Medical Emergencies: If at any time you feel your situation is an emergency, please call 911 immediately. . Non-Emergent Contact Non-Emergency issues call your: Primary Care Provider, Urologist Call Non-Emergent contact if: you have a fever, you have any medication questions . . "Provider Documentation" section prepared by Imer Lozoya. . VTE Core Measure Inpt VTE Proph given/why not?: Unfractionated heparin SQ
[2017-07-07 15:52] VITALS: BP 97/62; PULSE 70; TEMP 36.8; O2SAT 90
--- NOTE | 2017-07-08 08:06 | Discharge Summary ---
Discharge Summary Date of Service Jul 08, 2017. Discharge Summary Admission Date: Jul 05, 2017 at 19:52 Discharge Date: Jul 07, 2017 Discharge Disposition: Home Principal Diagnosis: Right ureteral stone with obstruction Secondary Diagnoses/Problems: Acute Renal Failure Procedures: S/P cysto right stent placement performed by dr. Salinas Consultations: Urology Medication Reconciliation New Medications: Tamsulosin HCl (Tamsulosin HCl) 0.4 Mg Cap 0.4 MG PO HS for 30 Days, CAP Continued Medications: Aspirin (Aspirin Ec) 81 Mg Tab 81 MG PO DAILY Dapagliflozin Propanediol (Farxiga) Unknown Strength Tab 5 MG PO DAILY Lisinopril (Lisinopril) Unknown Strength Tab 1 TAB PO DAILY, TAB Lorazepam (Ativan) 0.5 Mg Tab 0.5 MG PO DIRECTED PRN for PRN, TAB Meloxicam (Mobic) 7.5 Mg Tab 15 MG PO DAILY, TAB Admission Information HPI (per Admitting provider): CHIEF COMPLAINT: Right flank pain. HISTORY OF PRESENT ILLNESS: History obtained from patient and records. Medical history significant for hypertension, DM2 on oral meds, hx urolithiasis , history of solitary kidney R. Recent confinement 09/24/2014 for urolithiasis. Patient underwent cystoscopy, removal of bladder stone. One day history of right flank pain, sharp, stabbing with nausea, no emesis. Patient noted hematuria, some chills, no fever. Patient admits to not drinking as much water. At the Emergency Room. Received ceftriaxone for possible UTI. Physical Exam (per Admitting): PHYSICAL EXAMINATION: VITAL SIGNS: Blood pressure was noted to be 119/50, pulse rate 92, RR 22, T 37 O2 sats 98 RA. GENERAL: Obese, slightly uncomfortable. Looks younger for stated age. SKIN: Normal color, warm. HEENT: [place] palpebral conjunctivae. No ptosis. Dry mucosa. NECK: Short, supple. CHEST: CTA. No tenderness. HEART: Regular rate and rhythm, no murmur. ABDOMEN: Some distention, nontender. BACK: Right flank tenderness. EXTREMITIES: Minimal LE edema. No tenderness. No gross deformity. NEUROLOGIC: Coherent. No gross focality. Hospital Course Right ureteral stone with obstruction Present with right flank pain on admission CT Abd/Pelvis showed An obstructing 11 mm stone within the right ureteropelvic junction resulting in moderate right hydronephrosis. S/P day#2 cysto right stent placement performed by dr. Salinas Received 1 dose ceftriaxone Urine cx growth lactobacillus species Denies any urinary symptoms Case discussed with Dr. Salinas and ok from urology standpoint to discharge home Plan for stone removal as an outpatient in 1 - 2 week Pain control Stable Acute Renal Failure Secondary to obstructive uropathy. Creatine on admission 2.5, creatine improved today to 1.5 Creatine baseline 1 Continue IVF Continue holding ACEI and avoid nephrotoxic agents Check BMP within 1 week Elevated WBC WBC on admission 19K, trending down wnl today Received IV Rocephin x1 Afebrile UA negative for nitrite and leukocytes, +bacteria Urine cx growth lactobacillus species Resolved Hypertension BP in low side Continue holding Lisinopril Monitor BMP stable. DM type 2 Controlled Hba1c 6.9 Will resume oral med on discharge DVT PX on heparin sub CODE STATUS FULL CODE Disposition Follow up with urology Dr. Salinas between 1 to 2 week for stent removal Follow up with PCP Dr. Jones on 07/09 @ 12:45 PM Check BMP within 1 week Continue holding lisinopril for now until instructing by your PCP to resume it. Total time spent on discharge = 35 MINUTES This includes examination of the patient, discharge planning, medication reconciliation, and communication with other providers. Discharge Instructions Discharge Instructions Date of Service Jul 07, 2017. Admission Reason for Admission: ARF Discharge Discharge Diagnosis / Problem: Right ureteral stone with obstruction, Acute Renal Failure Discharge Goals Goal(s): Decrease discomfort, Improve function, Improve disease control Activity Recommendations Activity Limitations: resume your previous activity (as tolerated) . Instructions / Follow-Up Instructions / Follow-Up Follow up with urology Dr. Salinas between 1 to 2 week for stent removal ( please call for the appointment) Follow up with your primary care provider Dr. Jones on 07/09 @ 12:45 PM Monitor blood pressure Check BMP within 1 week to monitor your kidney function Follow a healthy diabetic diet and limiting concentrated sweet intake OK to take Tylenol for pain Continue holding lisinopril for now until instructing by your PCP to resume it. Hold Meloxicam for now No NSAIDs such as aleve, advil, naproxen, meloxicam, ibuprofen, Motrin, ... for now until kidney function back to baseline Current Hospital Diet Patient's current hospital diet: Diabetes Type 2 Diet Discharge Diet Recommended Diet: Diabetes Type 2 Diet Procedures Procedures Performed: cysto right stent palcement Pending Studies Studies pending at discharge: no Laboratory Results Hemoglobin A1c Test 07/05/17 16:58 Range/Units Estimated Average Glucose 151 mg/dl Hemoglobin A1c 6.9 H 4.5-5.6 % Medical Emergencies . Who to Call and When: Medical Emergencies: If at any time you feel your situation is an emergency, please call 911 immediately. . Non-Emergent Contact Non-Emergency issues call your: Primary Care Provider, Urologist Call Non-Emergent contact if: you have a fever, you have any medication questions . . "Provider Documentation" section prepared by Imer Lozoya. . VTE Core Measure Inpt VTE Proph given/why not?: Unfractionated heparin SQ Additional Copies To Ángela Jones M.D.
== END 2017-07-07 16:30 | disposition home or self-care (01) | DRG 694 ==
LOC: C.EDB 15:18 → C.MSW 19:52 → ENRESERV 20:45
PROVIDERS: ADMIT Internal Medicine; ATTEND Internal Medicine
PROC: 0T768DZ Dilation of Right Ureter with Intraluminal Device, Via Natural or Artificial Opening Endoscopic (ICD-10-PCS; principal; 2017-07-05 19:33)
DX: N13.2 Hydronephrosis with renal and ureteral calculous obstruction (principal); N17.9 Acute kidney failure, unspecified; I12.9 Hypertensive chronic kidney disease with stage 1 through stage 4 chronic kidney disease, or unspecified chronic kidney disease; N18.9 Chronic kidney disease, unspecified; E11.21 Type 2 diabetes mellitus with diabetic nephropathy; M79.7 Fibromyalgia; E78.5 Hyperlipidemia, unspecified; E21.5 Disorder of parathyroid gland, unspecified; Z90.5 Acquired absence of kidney; Z79.84 Long term (current) use of oral hypoglycemic drugs; Z87.442 Personal history of urinary calculi; Z79.82 Long term (current) use of aspirin

== ENCOUNTER 2017-08-07 06:26 | Day surgery (SDC) | payer OTHER ==
[2017-08-02 13:08] VITALS: Ht 162.6 cm; Wt 123.8 kg
[~2017-08-07] VITALS: Ht 162.6 cm; Wt 123.8 kg
[~2017-08-07 06:26] MED LIST changes: +ASPI81TA28 PO; -ATV5 PO; -CHOL100010 PO; -CIPR-255 PO; -CYAN100T PO; +CYCL-376 PO; -CYM/30 PO; +DAPA1TAB8 PO; +LACTATED RINGER'S 1000ML 1,000 ML IV SCH; +LISI2.5T5 PO; +LORA-741 PO; -MELO7.5T5 PO; +TAMS0.4C38 PO
[2017-08-07 06:52] VITALS: BP 122/75; PULSE 81; TEMP 37; O2SAT 94
[2017-08-07] MEDS ORDERED: NURSING VERBAL MED ORDER ONE (07:15)
--- NOTE | 2017-08-07 07:27 | History and Physical ---
History & Physical Date Aug 07, 2017. Chief Complaint right ureteral stone History of Present Illness The patient is a 62 year old female with complaints of Past Medical/Surgical History Medical Problems: (1) ARF (acute renal failure) (2) Calculus Of Ureter (3) Chronic Kidney Disease, Unspecified (4) Depressive Disorder Nec (5) Diab Linette Wo Compl, Type Ii Or Unspec Type, Not Uncntrld (6) Fibromyalgia (7) Hyperlipidemia Nec/Nos (8) Kidney stones (9) Lumbago (10) Migraine Unspecified W/O Intract Mgrn W/O Status Migrainosus (11) Morbid Obesity (12) Parathyroid Disorder Nos (13) Solitary kidney Surgical Problems: (1) History of delivery Additional History Hepatic Disease: No Endocrine Disorder: Yes Kidney Disease: Yes Hypertension: Yes Heart Disease: No Bleeding Tendencies: No Infectious Diseases: No Other: morbid obesity Allergies Coded Allergies: No Known Allergies (Verified , 08/07/17) Home Medications Scheduled Aspirin (Aspirin Ec), 81 MG PO QAM Dapagliflozin Propanediol (Farxiga), 1 TAB PO QAM Lisinopril (Lisinopril), 1 TAB PO QAM Multivitamin (Multivitamin), 1 TAB PO DAILY Tamsulosin Hcl (Flomax), 0.4 MG PO HS Scheduled PRN Cyclobenzaprine Hcl (Cyclobenzaprine Hcl), 1 TAB PO UD PRN for Muscle Spasms Lorazepam (Ativan), 0.5 MG PO UD PRN for Anxiety Physical Examination Skin: warm/dry Eyes: normal inspection Neck: no adenopathy Respiratory/Chest: lungs clear, normal breath sounds, no respiratory distress Cardiovascular: regular rate, rhythm, no edema Neurologic/Psych: alert, oriented x 3 Diagnosis right ureteral stone ASA Classification: ASA Class III Plan of Treatment right ureteroscopy laser litho basket stone extraction stent exchange ancef 3 g octor knee high scds home today
[2017-08-07] MEDS ORDERED: CEFAZOLIN SOD 3000MG/22.5 ML IV PUSH IV ONE (07:30)
[2017-08-07] MEDS ORDERED: CEFAZOLIN IV 3,000 MG in SYRINGE 0 ML IV SCH (07:30)
[2017-08-07] MEDS ORDERED: Cysto-Conray II 17.2% 250ML BOTTLE ONE (08:37)
[2017-08-07] MEDS ORDERED: PROPOFOL IV EMULSION 10 MG/ML 20 ML VIAL IV ONE (08:42)
[2017-08-07] MEDS ORDERED: LIDOCAINE HCL 2% 2 ML VIAL (20MG/ML) ONE (08:43)
[2017-08-07] MEDS ORDERED: FENTANYL CITRATE INJ 50 MCG/1 ML 2 ML VIAL ONE (08:43)
[2017-08-07] MEDS ORDERED: MIDAZOLAM HCL 1 MG/ML 2ML VIAL ONE (08:43)
[2017-08-07] MEDS ORDERED: HYDROmorphone INJ 1 MG/ML SYR IV PRN (08:45)
[2017-08-07] MEDS ORDERED: ATROPINE SULFATE 0.1 MG/ML 5ML SYR IV PRN (08:45)
[2017-08-07] MEDS ORDERED: MEPERIDINE HCL 25 MG/ML CARP IV PRN (08:45)
[2017-08-07] MEDS ORDERED: LABETALOL HCL IV 5 MG/ML 20ML IV PRN (08:45)
[2017-08-07] MEDS ORDERED: ONDANSETRON INJ 2 MG/ML 2 ML VIAL IV PRN (08:45)
[2017-08-07] MEDS ORDERED: EpHEDrine SULFATE INJ 50 MG/ML AMP IV PRN (08:45)
[2017-08-07] MEDS ORDERED: ONDANSETRON INJ 2 MG/ML 2 ML VIAL ONE (08:45)
[2017-08-07] MEDS ORDERED: NEOSTIGMINE METHYLSULFATE 5 MG/5 ML SYR ONE (09:51)
[2017-08-07] MEDS ORDERED: ROCURONIUM BROMIDE 10 MG/ML 5 ML VIAL IV ONE (09:51)
[2017-08-07] MEDS ORDERED: GLYCOPYRROLATE INJ 0.2 MG/ML VIAL ONE (09:52)
[2017-08-07] MEDS ORDERED: BELLADONNA/OPIUM SUPP 60 MG SUPP PR ONE ×2 (10:06→11:00)
--- NOTE | 2017-08-07 11:09 | [facility] Operative Report ---
Operative Report Operative Date Aug 07, 2017. Pre-Operative Diagnosis Right renal stones Post-Operative Diagnosis Right renal stones Procedure(s) Performed Cystoscopy, Right Ureteroscopy, Laser Lithotripsy, Basket Stone Extraction Right Ureteral stone; Right Ureteral Stent Exchange Surgeon Dr. Salinas Career Technical Counselor Surgeon(s) None Estimated Blood Loss 5 mL Findings mostly radio-lucent, some faintly radio-opaque kidney stones. Fluids 1400mL Specimens Permanent specimens A: Right renal stone fragments for chemical analysis Drains 6 fr 24 centimeter double j stent right Anesthesia Type General Complication(s) none Disposition yes Recovery Room / PACU Indications 3 large right renal and upj stones in a solitary right kidney. She was stented a few weeks ago and after she was given time to recovery from renal insufficiency she presents today for stone removal. Description of Procedure Patient was given general GET anesthesia and placed in lithotomy position. Her genitals were prepped and draped in sterile fashion. Time out held with team. I placed a half speculum posteriorly to allow for better visualization of the urethra. I placed a 21 fr rigid cystoscope to bladder. The urethra is unremarkable. The UOs are normal. The stent is lightly encrusted. I grasped the right stent tip and withdrew stent to the meatus. I placed a stiff wire up right ureter and removed stent and found it to be intact. I palced a 20 fr 12/ 14 fr ureteral access sheath easily. I used a flexible ureteroscope and a 200 micron holmium laser to break up the 3 large round yellow kidney stones on dusting settings. I then used a 2.4 fr zero tip basket to remove scores of fragments. I removed about 80% of stones in just under 90 minutes. I will have to stage this surgery to ensure complete stone removal. I removed the sheath and placed a 24 centimeter 6 Fr double J stent easily. I left bladder empty and concluded case. I placed a belladonna and opium suppository for post- op pain. She transferred to recovery under my escort, in stable condition. Plan: Home today Pyridium for dysuria x 3 days flomax daily oral pain meds as needed repeat stone surgery in 2 weeks ASA 3 clean contaminated case 24 seconds fluoro ancef antibiotic marine consultant I attest to the content of the Intraoperative Record and any orders documented therein. Any exceptions are noted below.
[2017-08-07] MEDS ORDERED: PHEN-775 PO (11:15)
[2017-08-07] MEDS ORDERED: OXYC-643 PO (11:15)
[2017-08-07] MEDS ORDERED: TAMS0.4C38 PO (11:15)
--- NOTE | 2017-08-07 11:16 | Discharge Instructions ---
Discharge Instructions Date of Service Aug 07, 2017. Admission Reason for Admission: Kidney Stone Discharge Discharge Diagnosis / Problem: right kidney stones Discharge Goals Goal(s): Improve disease control Activity Recommendations Activity Limitations: resume your previous activity Lifting Limitations: none Exercise/Sports Limitations: none May Resume Sexual Activity: when tolerated Shower/Bathe: no limitations Driving or Machine Use: resume 1 day after discharge . Current Hospital Diet Patient's current hospital diet: Discharge Diet Recommended Diet: Diabetes Type 2 Diet Fluid Restriction: None Procedures Procedures Performed: Cystoscopy, Right Ureteroscopy, Laser Lithotripsy, Basket Stone Extraction Right Ureteral stone; Right Ureteral Stent Exchange Pending Studies Studies pending at discharge: no Laboratory Results Hemoglobin A1c Test 07/05/17 16:58 Range/Units Estimated Average Glucose 151 mg/dl Hemoglobin A1c 6.9 H 4.5-5.6 % Medical Emergencies . Who to Call and When: Medical Emergencies: If at any time you feel your situation is an emergency, please call 911 immediately. . Non-Emergent Contact Non-Emergency issues call your: Urologist ([phone] or [phone] nights and weekends) Call Non-Emergent contact if: temperature is above 100.5, your pain is not controlled . . "Provider Documentation" section prepared by Nai Salinas. . [place] Drug Monitoring Program Search Results: patient reviewed within database, no issues identified
[2017-08-07] MEDS: FENTANYL CITRATE INJ 50 MCG/1 ML 2 ML VIAL IV PRN ×4 (11:27→11:42)
--- NOTE | 2017-08-07 11:38 | DIAGNOSTIC IMAGING REPORT ---
K[facility] CLINICAL HISTORY: CYSTOSCOPY, LASER, RIGHT STENT PLACEMENT stent placement TECHNIQUE: Image intensifier COMPARISON STUDY: CT 07/05/2017 FINDINGS: Retrograde placement of guidewire followed by a right ureteral stent. Stent appears to be in good position. IMPRESSION: Right ureteral stent placement The above report was generated using voice recognition software. It may contain grammatical, syntax or spelling errors. Electronically signed by: Raymond Bo M.D. 08/07/2017 11:37 AM Dictated Date/Time: 08/07/2017 11:31 AM
[2017-08-07 12:05] VITALS: BP 144/68; PULSE 75; TEMP 36.6; O2SAT 98
--- NOTE | 2017-08-07 12:08 | Anesthesiology Progress Note ---
Anesthesia Post Op Note Date & Time Aug 07, 2017 at 12:08 Vital Signs Pain Intensity: 2 Vital Signs Past 12 Hours Date Time Temp Pulse Resp B/P (MAP) Pulse Ox O2 Delivery O2 Flow Rate FiO2 08/07/17 11:55 36.5 08/07/17 11:51 159/79 08/07/17 11:50 80 14 94 08/07/17 11:50 79 14 08/07/17 11:46 152/69 08/07/17 11:45 61 17 08/07/17 11:45 62 17 97 08/07/17 11:41 149/62 08/07/17 11:40 73 20 08/07/17 11:40 73 20 97 08/07/17 11:36 155/63 08/07/17 11:35 67 18 08/07/17 11:35 67 18 97 08/07/17 11:32 148/74 08/07/17 11:30 72 22 99 08/07/17 11:30 73 22 08/07/17 11:26 161/76 08/07/17 11:25 78 22 96 08/07/17 11:25 80 22 08/07/17 11:21 162/70 08/07/17 11:15 36.6 88 18 127/73 94 Oxymask 10 08/07/17 06:52 37 81 20 122/75 (91) 94 Room Air Notes Mental Status: alert / awake / arousable, participated in evaluation Pt Amnestic to Procedure: Yes Nausea / Vomiting: adequately controlled Pain: adequately controlled Airway Patency, RR, SpO2: stable & adequate BP & HR: stable & adequate Hydration State: stable & adequate Anesthetic Complications: no major complications apparent
[2017-08-07 12:35] VITALS: BP 149/66; PULSE 72; TEMP 37; O2SAT 93
== END 2017-08-07 13:10 | disposition home or self-care (01) ==
LOC: C.ACU 06:26
PROVIDERS: ATTEND Urology
DX: E11.9 Type 2 diabetes mellitus without complications (principal); I10 Essential (primary) hypertension; M17.10 Unilateral primary osteoarthritis, unspecified knee; M79.7 Fibromyalgia; F32.9 Major depressive disorder, single episode, unspecified; E66.2 Morbid (severe) obesity with alveolar hypoventilation; Z79.82 Long term (current) use of aspirin; Z87.442 Personal history of urinary calculi; Z68.42 Body mass index [BMI] 45.0-49.9, adult

== ENCOUNTER → 2017-09-11 | Outpatient (CLI) | payer OTHER ==
[~2017-09-11] MED LIST changes: -LACTATED RINGER'S 1000ML 1,000 ML IV SCH; +LISI-1116 PO; -LISI2.5T5 PO; +MELO-84 PO; +OXYC-57 PO; +OXYC-643 PO
--- NOTE | 2017-09-11 18:11 | DIAGNOSTIC IMAGING REPORT ---
CHEST 2 VIEWS ROUTINE CLINICAL HISTORY: Preoperative evaluation. COMPARISON STUDY: Chest radiograph October 23, 2011. FINDINGS: Lung volumes are normal. There is slight elevation of the right hemidiaphragm which is unchanged. There is no evidence for pulmonary edema or pneumonia. Linear left lower lung opacity suggests atelectasis. Cardiomediastinal silhouette is unremarkable. Lateral view demonstrates probable cholelithiasis. IMPRESSION: No acute cardiopulmonary findings. Electronically signed by: Benedicto Santoyo M.D. 09/11/2017 6:10 PM Dictated Date/Time: 09/11/2017 6:09 PM
[2017-09-11 18:41] LABS: BLOOD UREA NITROGEN 20 mg/dl (7-18); CARBON DIOXIDE 27 mmol/L (21-32); CREATININE 1.27 mg/dl (0.60-1.20); POTASSIUM 4.3 mmol/L (3.5-5.1); SODIUM 139 mmol/L (136-145)
== END | disposition home or self-care (01) ==
LOC: C.CPL 17:29
PROVIDERS: ATTEND Urology
DX: N20.0 Calculus of kidney (principal)

== ENCOUNTER → 2017-09-19 | Outpatient (CLI) | payer OTHER ==
[~2017-09-19] MED LIST changes: -OXYC-643 PO
[2017-09-19 19:10] LABS: BASO % 0.4 %; BASO ABS # 0.05 K/uL (0-0.2); EOS ABS # 0.52 K/uL (0-0.5); HEMATOCRIT 46.1 % (37-47); HEMOGLOBIN 15.1 g/dL (12.0-16.0); IG# 0.03 K/uL (0.00-0.02); LYMPH ABS # 4.21 K/uL (1.2-3.4); MEAN CORPUSCULAR HEMOGLOBIN 29.2 pg (25-34); MEAN CORPUSCULAR HGB CONC 32.8 g/dl (32-36); MEAN PLATELET VOLUME 9.4 fL (7.4-10.4); MONO % 8.5 %; MONO ABS # 1.12 K/uL (0.11-0.59); NEUT % 54.9 %; NEUT ABS # 7.22 K/uL (1.4-6.5); PLATELET COUNT 278 K/uL (130-400); RED CELL DISTRIBUTION WIDTH CV 14.2 % (11.5-14.5); RED CELL DISTRIBUTION WIDTH SD 46.2 fL (36.4-46.3); WHITE BLOOD COUNT 13.15 K/uL (4.8-10.8)
== END | disposition home or self-care (01) ==
LOC: C.RAD 18:12
PROVIDERS: ATTEND Urology
DX: N20.0 Calculus of kidney (principal)

== ENCOUNTER → 2017-09-20 | Day surgery (SDC) | payer OTHER ==
[2017-09-12 07:36] VITALS: Ht 162.6 cm
--- NOTE | 2017-09-19 19:07 | DIAGNOSTIC IMAGING REPORT ---
K[facility] CLINICAL HISTORY: 62 years-old Female presenting with N20.0 [id number]. TECHNIQUE: Single supine view of the abdomen was obtained. COMPARISON: 09/02/[address] from 07/05/2017. FINDINGS: Moderate stool burden in the right colon. Gas and stool mildly degrades evaluation of the renal shadows in addition to patient body habitus. Cholelithiasis noted. A right ureteral stent remains in place. Multiple right renal calculi evident. Previously noted linear calcification projecting over the right renal pelvis is again evidence, possibly vascular in etiology versus calculus. No radiographically visible left renal calculi. Calculus in the pelvis consistent with phlebolith. Osseous structures normal. Lung bases clear. IMPRESSION: 1. Right ureteral stent in place. 2. Right nephrolithiasis. Renal vascular calcification versus calculus at the right renal pelvis adjacent to the pigtail, unchanged. 3. Cholelithiasis. Electronically signed by: Eder Valdes M.D. 09/19/2017 7:06 PM Dictated Date/Time: 09/19/2017 7:03 PM
[~2017-09-20] VITALS: Ht 162.6 cm
[~2017-09-20] MED LIST changes: +ATROPINE SULFATE 0.1 MG/ML 5ML SYR IV PRN; +CIPROFLOXACIN 400MG / D5W IV SCH; +DEXAMETHASONE SOD INJ 4 MG/ML VIAL ONE; +EpHEDrine SULFATE INJ 50 MG/ML AMP IV PRN; +EpHEDrine SULFATE INJ 50 MG/ML AMP ONE; +FENTANYL CITRATE INJ 50 MCG/1 ML 2 ML VIAL IV PRN; +FENTANYL CITRATE INJ 50 MCG/1 ML 2 ML VIAL ONE; +FLUMAZENIL 0.1 MG/1 ML 10 ML VIAL IV PRN; +HYDROmorphone INJ 2 MG/ML SYR/VIAL IV PRN; +LABETALOL HCL IV 5 MG/ML 20ML IV PRN; +LACTATED RINGER'S 1000ML 1,000 ML IV SCH; +LIDOCAINE HCL 2% 2 ML VIAL (20MG/ML) ONE; +MEPERIDINE HCL 25 MG/ML CARP IV PRN; +MIDAZOLAM HCL 1 MG/ML 2ML VIAL ONE; +NALOXONE HCL 0.4 MG/1 ML VIAL/CARP IV PRN; +ONDANSETRON INJ 2 MG/ML 2 ML VIAL IV PRN; +ONDANSETRON INJ 2 MG/ML 2 ML VIAL ONE; +OXYCODONE/ACETAMINOPHEN 5-325 TAB PO PRN; +PHENYLEPHRINE 100MCG/ML 5ML SYR IV PRN; +PROPOFOL IV EMULSION 10 MG/ML 20 ML VIAL ONE; +SODIUM CHLORIDE 0.9% INJ 10 ML VIAL ONE; +SUCCINYLCHOLINE CHLORIDE 20 MG/ML 10 ML VIAL IV ONE
--- NOTE | 2017-09-20 06:53 | History & Physical Bridge Note ---
H&P Re-Evaluation Bridge Note: I have examined the patient, reviewed the History & Physical and in the interval since the performance of the History & Physical I have noted the following changes of clinical significance: No changes noted
--- NOTE | 2017-09-20 07:24 | Discharge Instructions-SurgCtr ---
Discharge Instructions Date of Service September 20, 2017. Visit Reason for Visit: Stones Discharge Discharge Diagnosis / Problem: stones Discharge Goals Goal(s): Therapeutic intervention Medications Stopped Medications Name(s): aspirin last dose 09/09, mobic last dose 09/09 529, Activity Recommendations Activity Limitations: per Instructions/Follow-up section Exercise/Sports Limitations: rest today May Resume Sexual Activity: when tolerated Shower/Bathe: no limitations Driving or Machine Use: resume 1 day after discharge Anesthesia . Post Anesthesia Instructions: If you have had General Anesthesia or IV Sedation: * Do not drive today. * Resume driving when surgeon permits. * Do not make important decisions or sign legal documents today. * Call surgeon for: 1. Temperature elevations greater than 101 degrees F. 2. Uncontrollable pain. 3. Excessive bleeding. 4. Persistent nausea and vomiting. 5. Medication intolerance (nausea, vomiting or rash). * For nausea and vomiting use only clear liquids such as: tea, soda, bouillon until nausea subsides, then gradually increase diet as tolerated. * If you have any concerns or questions, call your surgeon's office. If physician is unavailable and it is an emergency, call 911 or go to the nearest emergency room. . Instructions / Follow-Up Instructions / Follow-Up MEDICATIONS: Resume previous medications unless instructed otherwise by your surgeon. Resume pre-[facility] medication except for aspirin, coumadin or other blood thinners. __ Toradol 10 mg every 6 hours for initial pain. __ Lortab 5 mg 1-2 every 4 hours for pain. _x_ Percocet 5 mg 1-2 every 4 hours for pain. __ Macrodantin 50 mg x 3 a day. __ Flomax 1 tab daily one half (1/2) hour after supper. SPECIAL CARE INSTRUCTIONS: 1. Get KUB (x-ray) _x_ day before or day of office visit and bring x-ray to office __ get x-ray 2 days before and tell office you are getting x-rays when you call for the appointment. 2. Strain ALL urine. 3. Please call if you have a fever, chills, severe pain, or constant dribbling of urine. 4. Office phone number . FOLLOW UP VISIT: Please call the office to schedule a follow-up appointment at . Diet Recommendations Home Diet: resume previous diet Pending Studies Studies pending at discharge: no Medical Emergencies . Who to Call and When: Medical Emergencies: If at any time you feel your situation is an emergency, please call 911 immediately. . Non-Emergent Contact Non-Emergency issues call your: Urologist Call Non-Emergent contact if: temperature is above 101.5, your pain is not controlled . . "Provider Documentation" section prepared by Chandra Malhotra. . [place] Drug Monitoring Program Search Results: patient reviewed within database
--- NOTE | 2017-09-20 07:27 | [facility] Operative Report ---
Operative Report Operative Date September 20, 2017. Pre-Operative Diagnosis Right Renal Calculi Post-Operative Diagnosis Same Procedure(s) Performed Right Extracorporeal Shock Wave Lithotripsy Surgeon Dr. Karen Malhotra Boarder Steam Surgeon(s) None Estimated Blood Loss 0 Findings Right renal stones Specimens None Drains pt has right stent Anesthesia Type General Complication(s) none Disposition yes Recovery Room / PACU Indications Right renal stones Description of Procedure Patient was identified in the preoperative holding area, appropriate informed consent was reviewed and completed and the patient was transported to the operating suite. Upon arrival appropriate preoperative antibiotics were administered and general anesthesia induced. The patient was placed in supine position and the stone was localized under fluoroscopy. A total of [__2500_] shocks were delivered to the stone. There appeared to be good fragmentation of the stone. Details of this procedure can be found on the [facility] information sheet. At the conclusion of the case the patient was extubated and taken to the PACU in stable condition. There were no complications. I attest to the content of the Intraoperative Record and any orders documented therein. Any exceptions are noted below.
--- NOTE | 2017-09-20 08:45 | Anesthesiology Progress Note ---
Anesthesia Post Op Note Date & Time September 20, 2017 at 08:44 Vital Signs Pain Intensity: 0 Vital Signs Past 12 Hours Date Time Temp Pulse Resp B/P (MAP) Pulse Ox O2 Delivery O2 Flow Rate FiO2 09/20/17 08:37 72 20 106/59 93 09/20/17 08:37 71 20 09/20/17 08:35 98/61 09/20/17 08:34 36.5 74 20 106/59 92 Room Air 09/20/17 08:32 78 18 92 09/20/17 08:32 77 18 09/20/17 08:30 117/65 09/20/17 08:27 75 13 09/20/17 08:27 79 13 91 09/20/17 08:25 104/62 09/20/17 08:22 80 14 09/20/17 08:22 81 14 95 09/20/17 08:20 127/59 09/20/17 08:17 81 28 09/20/17 08:17 89 28 96 09/20/17 08:16 140/66 09/20/17 08:12 87 15 09/20/17 08:12 92 15 96 09/20/17 08:11 104/68 09/20/17 08:07 83 20 09/20/17 08:07 89 20 96 09/20/17 08:05 134/68 09/20/17 08:02 95 09/20/17 08:02 95 160/85 95 09/20/17 08:02 36.5 96 32 160/85 96 Room Air 09/20/17 06:31 36.4 76 22 111/76 (88) 93 Room Air Notes Mental Status: alert / awake / arousable, participated in evaluation Pt Amnestic to Procedure: Yes Nausea / Vomiting: adequately controlled Pain: adequately controlled Airway Patency, RR, SpO2: stable & adequate BP & HR: stable & adequate Hydration State: stable & adequate Anesthetic Complications: no major complications apparent
[2017-09-20 08:47] VITALS: TEMP 36.5
[2017-09-20 09:08] VITALS: BP 106/74; PULSE 74; O2SAT 92
== END | disposition home or self-care (01) ==
LOC: X.SURG 06:00
PROVIDERS: ATTEND Urology
DX: N20.0 Calculus of kidney (principal); I10 Essential (primary) hypertension; E11.9 Type 2 diabetes mellitus without complications; Z79.82 Long term (current) use of aspirin; Z79.899 Other long term (current) drug therapy

== ENCOUNTER → 2017-10-07 | Outpatient (CLI) | payer OTHER ==
[~2017-10-07] MED LIST changes: -ATROPINE SULFATE 0.1 MG/ML 5ML SYR IV PRN; -CIPROFLOXACIN 400MG / D5W IV SCH; -DEXAMETHASONE SOD INJ 4 MG/ML VIAL ONE; -EpHEDrine SULFATE INJ 50 MG/ML AMP IV PRN; -EpHEDrine SULFATE INJ 50 MG/ML AMP ONE; -FENTANYL CITRATE INJ 50 MCG/1 ML 2 ML VIAL IV PRN; -FENTANYL CITRATE INJ 50 MCG/1 ML 2 ML VIAL ONE; -FLUMAZENIL 0.1 MG/1 ML 10 ML VIAL IV PRN; -HYDROmorphone INJ 2 MG/ML SYR/VIAL IV PRN; -LABETALOL HCL IV 5 MG/ML 20ML IV PRN; -LACTATED RINGER'S 1000ML 1,000 ML IV SCH; -LIDOCAINE HCL 2% 2 ML VIAL (20MG/ML) ONE; -MEPERIDINE HCL 25 MG/ML CARP IV PRN; -MIDAZOLAM HCL 1 MG/ML 2ML VIAL ONE; -NALOXONE HCL 0.4 MG/1 ML VIAL/CARP IV PRN; -ONDANSETRON INJ 2 MG/ML 2 ML VIAL IV PRN; -ONDANSETRON INJ 2 MG/ML 2 ML VIAL ONE; -OXYCODONE/ACETAMINOPHEN 5-325 TAB PO PRN; -PHENYLEPHRINE 100MCG/ML 5ML SYR IV PRN; -PROPOFOL IV EMULSION 10 MG/ML 20 ML VIAL ONE; -SODIUM CHLORIDE 0.9% INJ 10 ML VIAL ONE; -SUCCINYLCHOLINE CHLORIDE 20 MG/ML 10 ML VIAL IV ONE
--- NOTE | 2017-10-07 19:11 | DIAGNOSTIC IMAGING REPORT ---
KUB HISTORY: Follow-up study in a patient with nephrolithiasis N20.0 Nephrolithiasis COMPARISON: KUB 09/19/2017. FINDINGS: The bowel gas pattern is non-obstructive. Cholelithiasis. There is no organomegaly. Stable positioning of right ureteral stent. Right-sided nephrolithiasis redemonstrated. Calcifications of the right hemipelvis are unchanged suggesting vascular calcifications. Possible calculus adjacent to the mid right ureteral stent the level of the sacrum. Left renal shadow is partially obscured by bowel gas. No pneumoperitoneum or pneumatosis. No fracture. IMPRESSION: 1. Stable positioning of right ureteral stent. 2. Possible calculus adjacent to the mid right ureteral stent at the level of the sacrum. 3. Right-sided nephrolithiasis. Electronically signed by: David Graves M.D. 10/07/2017 7:10 PM Dictated Date/Time: 10/07/2017 7:08 PM
== END | disposition home or self-care (01) ==
LOC: C.RAD 18:15
PROVIDERS: ATTEND Urology
DX: N20.0 Calculus of kidney (principal); Z96.0 Presence of urogenital implants

== ENCOUNTER → 2017-10-08 | Outpatient (CLI) | payer OTHER | END | disposition home or self-care (01) | LOC: C.LABSPEC 10:54 | PROVIDERS: ATTEND Urology | DX: N20.0 Calculus of kidney (principal) ==

== ENCOUNTER 2020-08-13 10:02 | Observation (INO) ==
[2020-08-13] MEDS ORDERED: SODIUM CHLORIDE 0.9% 1000ML 1,000 ML IV STA (10:48)
[2020-08-13] MEDS ORDERED: ONDANSETRON INJ 2 MG/ML 2 ML VIAL IV STA ×2 (10:48→14:16)
[2020-08-13] MEDS ORDERED: fentaNYL citrate 100 MCG/2 ML VIAL IV STA (10:48)
[2020-08-13] MEDS ORDERED: OPTIRAY 320 100ml IV ONE (10:56)
--- NOTE | 2020-08-13 10:59 | Emergency Department Note ---
Impression & Plan Acute right flank pain, Dizziness, Kidney stone on right side ED Provider Note Provider: Javan Humphrey MD DATE OF SERVICE: 08/13/2020 CHIEF COMPLAINT: Right flank pain/groin pain, dizzy HISTORY OF PRESENT ILLNESS: Patient is a 65-year-old female history of right solitary kidney, fibromyalgia, type 2 diabetes presenting today with a complaint of 2 weeks of smoldering and now worsening right flank pain into the groin. Reports last night questionably little bit of blood in her urine. States has not been able to go to the bathroom this morning and has severe pain in her right flank rating to the right inguinal and groin area. Denies any falls or trauma. Denies fever. Patient denies chest pain or shortness of breath. Denies other left-sided flank or abdominal pain. No radiation of pain down the legs. Patient states he feels quite similar when she has kidney stone in the past and prior had stents multiple times last in 2019. Patient is on aspirin. Was seen her several weeks ago for question of some perfusion issue in the leg but she states that is improved some with compression stockings. Patient states she has not used anything for pain today or eaten today but has tried some Tylenol last several days without real improvement. Patient states that time she feels little bit dizzy or unbalanced but denies significant headache. Denies focal weakness. Patient states is somewhat how she felt with prior stones. Patient denies pain with urination last several days but again states she just does not feel like she is been able to pee today. Did move her bowels with some loose stool this morning. REVIEW OF SYSTEMS: A total of 10 review of systems was obtained and negative except as stated above in the HPI. PAST MEDICAL HISTORY: As noted above MEDICATIONS: Reviewed home medication list SOCIAL HISTORY: lives at home PHYSICAL EXAM: GENERAL: alert and oriented appears uncomfortable on the stretcher Head: normocephalic and atraumatic EYES: No injection, discharge or icterus. NECK: Trachea midline. ENT: Mucous membranes pink and moist. LUNGS: Airway patent. No retractions. Breath sounds clear HEART: Regular rate and rhythm. No chest wall tenderness ABDOMEN: Soft and non-tender, without guarding or rebound. BACK: Some moderate right flank tenderness. SKIN: Acyanotic, warm, dry, without rashes EXTREMITIES: Without swelling, tenderness or deformity NEUROLOGICAL: No focal deficits. No aphasia. No facial droop or slurred speech. EK beats per normal sinus rhythm. No PVC or PAC. No acute ST segment elevation or depression. Normal axis and normal QTC. CONTINUOUS CARDIAC MONITORING: was ordered and showed a heart rate of 80 bpm in normal sinus rhythm. Patient while here was noted on telemetry to have a brief approximately 46-second period of heart block develop with nontransmitted P waves. Patient's laboratory studies and imaging reviewed. Differential includes Appendicitis, infections, diverticulitis, UTI, obstructi on, mesenteric ischemia, aortic pathology, inflammatory bowel disease, renal colic, PUD, pancreatitis, biliary pathology, hernia, volvulus, constipation, as well as other pathologies. IMPRESSION/MEDICAL DECISION MAKING: Patient presents with 2 weeks of some worsening flank pain acutely worse today found on CT here to have a millimeter kidney stone. Worsening leukocytosis of almost 18 today noted without evidence of severe electrolyte abnormality, transaminitis, or pancreatitis. Not having numbness weakness or aphasia and doubt acute CVA or intracranial mass. EKG and troponin not concerning for acute ACS or cardiac injury at this point. This is likely related some of the dehydrational component to believe she is experiencing. Given a dose of Zosyn with this white blood cell count with concern for possible UTI initially while waiting for UA. Urine sample obtained just after this antibiotic was given without significant evidence concerning for infection. Again the patient denies any fevers or chills. Leukocytosis could simply be from dehydration and pain she has been experiencing. Patient does have some slight LEXUS here creatinine 1.5. Patient did receive some IV fluid hydration. Given a dose of fentanyl and later additional morphine still with significant discomfort. Patient declines any NSAIDs relating to her renal dysfunction. Discussed with the patient findings. Discussed options and she was very concerned about her pain and given her poorly controlled pain wish to stay here for further observation. Monitoring her renal function given that she only has the one kidney with the obstructing stone here is also quite reasonable. The hospitalist was contacted. Patient later had episode of some conducted P waves on telemetry concerning for heart block that quickly resolved and the patient states she was asymptomatic during this period. Does report some dizziness intermittently left several weeks and question if this is related to this/possible arrhythmia heart block issue. Hospitalist is aware and will further evaluate as an inpatient patient will be on further cardiac monitoring. DIAGNOSIS: Right flank pain, right-sided kidney stone, nausea, intermittent dizziness, heart block DISPOSITION: Hospitalist will evaluate Patient was agreeable with this plan. Past Med/Surg History Medical History Anxiety ARF (acute renal failure) Fibromyalgia History of nephrolithiasis Renal colic on right side Routine adult health maintenance Surgical History History of delivery History of cystoscopy History of lithotripsy Family History Grandmother Heart disease Grandfather Heart disease Other T2DM (type 2 diabetes mellitus) Wilm's tumor (nephroblastoma) Denies family history of Ovarian cancer Prostate cancer Breast cancer Colorectal cancer Hypertension Social History Smoking Status: Never smoker Tobacco Type: Cigarettes Hx Alcohol Use: Yes Alcohol type: wine Hx Substance Use: No Preferred Language: Upper Sorbian Communication Ability: Effective Visual Impairment: No Limitations Proced Tech Required: No Beliefs That Will Affect Care: None marital status: Current Living Situation: Spouse Current Living Situation Comment: guardian of 9 month on grandchild Feels Safe at Home: Yes Assistive Devices: Glasses Allergies Allergies Allergy/AdvReac Type Severity Reaction Status Date / Time No Known Allergies Allergy Verified 08/13/20 11:15 Home Meds Home Medications Medication Instructions Recorded Confirmed aspirin 81 mg PO DAILY 06/15/18 08/13/20 multivitamin 1 tab PO DAILY 02/12/19 08/13/20 bupropion HCl 100 mg PO TID 07/27/20 08/13/20 Previous Rx's Medication Instructions Recorded cyclobenzaprine 5 mg tablet 5 mg PO TID PRN #30 tab 09/30/19 dapagliflozin 5 mg tablet 5 mg PO QAM #90 tab 05/05/20 lorazepam 0.5 mg tablet 0.5 mg PO TID PRN #20 tab 06/24/20 duloxetine 40 mg capsule,delayed 40 mg PO DAILY #30 cap 08/03/20 release Results & Data (ED) Vital Signs Vital Signs - 24 hr 08/13/20 10:18 08/13/20 11:32 08/13/20 11:33 Temperature 36.9 C Temperature Source Oral Pulse Rate 84 92 H Pulse Rate from SpO2 Sensor 93 H Respiratory Rate 20 23 Respiratory Effort / Characteristics Non-Labored Spontaneous Respiratory Depth Normal Blood Pressure 153/87 H 146/68 H Blood Pressure Mean 109 94 Pulse Oximetry 97 94 Oxygen Delivery Method Room Air Nasal Cannula Nasal Cannula Oxygen Flow Rate 2 2 Sepsis Recent Fever Within 48 Hours No Sepsis New/Unexplained Change in Mental Status N/A Sepsis Action Taken by Nursing No Action Required 08/13/20 11:46 08/13/20 11:50 08/13/20 12:00 Temperature Temperature Source Pulse Rate 91 H 94 H 90 Pulse Rate from SpO2 Sensor 92 H 95 H 90 Respiratory Rate 19 22 20 Respiratory Effort / Characteristics Respiratory Depth Blood Pressure 158/99 H Blood Pressure Mean 118 Pulse Oximetry 95 94 95 Oxygen Delivery Method Nasal Cannula Nasal Cannula Nasal Cannula Oxygen Flow Rate 2 2 2 Sepsis Recent Fever Within 48 Hours Sepsis New/Unexplained Change in Mental Status Sepsis Action Taken by Nursing 08/13/20 12:01 08/13/20 12:10 08/13/20 12:33 Temperature Temperature Source Pulse Rate 89 90 86 Pulse Rate from SpO2 Sensor 89 88 88 Respiratory Rate 19 21 19 Respiratory Effort / Characteristics Respiratory Depth Blood Pressure Blood Pressure Mean Pulse Oximetry 95 96 98 Oxygen Delivery Method Nasal Cannula Nasal Cannula Room Air Oxygen Flow Rate 2 2 Sepsis Recent Fever Within 48 Hours Sepsis New/Unexplained Change in Mental Status Sepsis Action Taken by Nursing 08/13/20 12:40 08/13/20 12:50 08/13/20 13:00 Temperature Temperature Source Pulse Rate 86 82 86 Pulse Rate from SpO2 Sensor 86 82 Respiratory Rate 24 18 19 Respiratory Effort / Characteristics Respiratory Depth Blood Pressure Blood Pressure Mean Pulse Oximetry 97 97 Oxygen Delivery Method Room Air Room Air Room Air Oxygen Flow Rate Sepsis Recent Fever Within 48 Hours Sepsis New/Unexplained Change in Mental Status Sepsis Action Taken by Nursing 08/13/20 13:01 08/13/20 13:10 08/13/20 13:20 Temperature Temperature Source Pulse Rate 81 98 H 89 Pulse Rate from SpO2 Sensor 82 98 H 88 Respiratory Rate 20 13 20 Respiratory Effort / Characteristics Respiratory Depth Blood Pressure 186/107 H Blood Pressure Mean 133 Pulse Oximetry 98 94 92 Oxygen Delivery Method Room Air Room Air Room Air Oxygen Flow Rate Sepsis Recent Fever Within 48 Hours Sepsis New/Unexplained Change in Mental Status Sepsis Action Taken by Nursing 08/13/20 13:30 08/13/20 13:40 08/13/20 13:50 Temperature Temperature Source Pulse Rate 83 92 H 84 Pulse Rate from SpO2 Sensor 83 91 H 88 Respiratory Rate 21 24 19 Respiratory Effort / Characteristics Respiratory Depth Blood Pressure 160/101 H Blood Pressure Mean 120 Pulse Oximetry 91 92 91 Oxygen Delivery Method Room Air Room Air Room Air Oxygen Flow Rate Sepsis Recent Fever Within 48 Hours Sepsis New/Unexplained Change in Mental Status Sepsis Action Taken by Nursing 08/13/20 14:00 08/13/20 14:01 08/13/20 14:10 Temperature Temperature Source Pulse Rate 84 83 85 Pulse Rate from SpO2 Sensor 85 84 83 Respiratory Rate 20 21 21 Respiratory Effort / Characteristics Respiratory Depth Blood Pressure 173/94 H Blood Pressure Mean 120 Pulse Oximetry 90 90 Oxygen Delivery Method Room Air Room Air Room Air Oxygen Flow Rate Sepsis Recent Fever Within 48 Hours Sepsis New/Unexplained Change in Mental Status Sepsis Action Taken by Nursing 08/13/20 14:20 08/13/20 14:30 08/13/20 14:31 Temperature Temperature Source Pulse Rate 91 H 81 83 Pulse Rate from SpO2 Sensor 91 H 82 82 Respiratory Rate 14 19 17 Respiratory Effort / Characteristics Respiratory Depth Blood Pressure 162/115 H Blood Pressure Mean 130 Pulse Oximetry 93 91 92 Oxygen Delivery Method Room Air Room Air Room Air Oxygen Flow Rate Sepsis Recent Fever Within 48 Hours Sepsis New/Unexplained Change in Mental Status Sepsis Action Taken by Nursing 08/13/20 14:40 08/13/20 14:50 08/13/20 15:00 Temperature Temperature Source Pulse Rate 81 81 85 Pulse Rate from SpO2 Sensor 81 82 83 Respiratory Rate 23 21 15 Respiratory Effort / Characteristics Respiratory Depth Blood Pressure 160/94 H Blood Pressure Mean 116 Pulse Oximetry 92 91 92 Oxygen Delivery Method Room Air Room Air Room Air Oxygen Flow Rate Sepsis Recent Fever Within 48 Hours Sepsis New/Unexplained Change in Mental Status Sepsis Action Taken by Nursing 08/13/20 15:01 08/13/20 15:10 08/13/20 15:20 Temperature Temperature Source Pulse Rate 85 91 H 83 Pulse Rate from SpO2 Sensor 85 90 82 Respiratory Rate 18 31 H 21 Respiratory Effort / Characteristics Respiratory Depth Blood Pressure Blood Pressure Mean Pulse Oximetry 95 97 94 Oxygen Delivery Method Room Air Room Air Room Air Oxygen Flow Rate Sepsis Recent Fever Within 48 Hours Sepsis New/Unexplained Change in Mental Status Sepsis Action Taken by Nursing 08/13/20 15:30 08/13/20 15:31 08/13/20 15:40 Temperature Temperature Source Pulse Rate 82 79 83 Pulse Rate from SpO2 Sensor 82 79 83 Respiratory Rate 17 18 18 Respiratory Effort / Characteristics Respiratory Depth Blood Pressure 173/87 H Blood Pressure Mean 115 Pulse Oximetry 91 92 93 Oxygen Delivery Method Room Air Room Air Room Air Oxygen Flow Rate Sepsis Recent Fever Within 48 Hours Sepsis New/Unexplained Change in Mental Status Sepsis Action Taken by Nursing 08/13/20 15:50 08/13/20 16:00 08/13/20 16:01 Temperature Temperature Source Pulse Rate 88 77 79 Pulse Rate from SpO2 Sensor 87 77 79 Respiratory Rate 21 19 18 Respiratory Effort / Characteristics Respiratory Depth Blood Pressure 186/120 H Blood Pressure Mean 142 Pulse Oximetry 91 93 92 Oxygen Delivery Method Room Air Room Air Room Air Oxygen Flow Rate Sepsis Recent Fever Within 48 Hours Sepsis New/Unexplained Change in Mental Status Sepsis Action Taken by Nursing 08/13/20 16:10 08/13/20 16:20 08/13/20 16:30 Temperature Temperature Source Pulse Rate 78 80 74 Pulse Rate from SpO2 Sensor 78 79 75 Respiratory Rate 15 22 18 Respiratory Effort / Characteristics Respiratory Depth Blood Pressure 199/102 H Blood Pressure Mean 134 Pulse Oximetry 90 94 94 Oxygen Delivery Method Room Air Room Air Room Air Oxygen Flow Rate Sepsis Recent Fever Within 48 Hours Sepsis New/Unexplained Change in Mental Status Sepsis Action Taken by Nursing 08/13/20 16:31 08/13/20 16:40 08/13/20 16:50 Temperature Temperature Source Pulse Rate 74 82 78 Pulse Rate from SpO2 Sensor 74 81 77 Respiratory Rate 17 23 17 Respiratory Effort / Characteristics Respiratory Depth Blood Pressure Blood Pressure Mean Pulse Oximetry 93 95 96 Oxygen Delivery Method Room Air Room Air Room Air Oxygen Flow Rate Sepsis Recent Fever Within 48 Hours Sepsis New/Unexplained Change in Mental Status Sepsis Action Taken by Nursing 08/13/20 17:00 08/13/20 17:01 08/13/20 17:10 Temperature Temperature Source Pulse Rate 79 80 78 Pulse Rate from SpO2 Sensor 80 80 Respiratory Rate 17 18 19 Respiratory Effort / Characteristics Respiratory Depth Blood Pressure 147/87 H Blood Pressure Mean 107 Pulse Oximetry 93 93 Oxygen Delivery Method Room Air Room Air Room Air Oxygen Flow Rate Sepsis Recent Fever Within 48 Hours Sepsis New/Unexplained Change in Mental Status Sepsis Action Taken by Nursing 08/13/20 17:20 08/13/20 17:30 08/13/20 17:31 Temperature Temperature Source Pulse Rate 86 78 79 Pulse Rate from SpO2 Sensor 85 78 79 Respiratory Rate 15 17 16 Respiratory Effort / Characteristics Respiratory Depth Blood Pressure 168/93 H Blood Pressure Mean 118 Pulse Oximetry 93 92 92 Oxygen Delivery Method Room Air Room Air Room Air Oxygen Flow Rate Sepsis Recent Fever Within 48 Hours Sepsis New/Unexplained Change in Mental Status Sepsis Action Taken by Nursing Laboratory Data Result diagrams: 08/13/20 11:51 08/13/20 11:51 Lab Results 08/13/20 08/13/20 08/13/20 Range/Units 11:51 11:51 11:51 WBC 17.99 H (4.8-10.8) K/uL RBC 5.30 (4.2-5.4) M/uL Hgb 15.4 (12.0-16.0) g/dL Hct 47.8 H (37-47) % MCV 90.2 (80-100) fL MCH 29.1 (25-34) pg MCHC 32.2 (32-36) g/dL RDW Std Deviation 46.6 H (36.4-46.3) fL RDW Coeff of Veronica 14.1 (11.5-14.5) % Plt Count 270 (130-400) K/uL MPV 9.2 (7.4-10.4) fL Immature Gran % (Auto) 0.3 % Neut % (Auto) 77.6 % Lymph % (Auto) 9.8 % [place] % (Auto) 9.6 % Eos % (Auto) 2.5 % Baso % (Auto) 0.2 % Neut # (Auto) 13.98 H (1.4-6.5) K/uL Lymph # (Auto) 1.76 (1.2-3.4) K/uL [place] # (Auto) 1.72 H (0.11-0.59) K/uL Eos # (Auto) 0.45 (0-0.5) K/uL Baso # (Auto) 0.03 (0-0.2) K/uL Immature Gran # (Auto) 0.05 H (0.00-0.02) K/uL PT 10.3 (9.0-12.0) Seconds INR 1.0 (0.9-1.1) Sodium 140 (136-145) mmol/L Potassium 4.5 (3.5-5.1) mmol/L Chloride 108 H (98-107) mmol/L Carbon Dioxide 27 (21-32) mmol/L Anion Gap 5.0 (3-11) BUN 27 H (7-18) mg/dl Creatinine 1.56 H (0.6-1.2) mg/dl Est Cr Clr Drug Dosing 44.1 ml/min Est GFR ( Amer) 39.7 Est GFR (Non-Af Amer) 34.3 BUN/Creatinine Ratio 17.3 (10-20) Glucose 148 H (70-99) mg/dl Lactate (0.4-2.0) mmol/L Calcium 9.1 (8.5-10.1) mg/dl Total Bilirubin 0.3 (0.2-1) mg/dl AST 12 L (15-37) U/L ALT 22 (12-78) U/L Alkaline Phosphatase 106 (45-117) U/L Troponin I < 0.015 (0-0.045) ng/ml Total Protein 7.7 (6.4-8.2) gm/dl Albumin 3.4 (3.4-5.0) gm/dl Globulin 4.3 H (2.5-4.0) gm/dl Albumin/Globulin Ratio 0.8 L (0.9-2) Lipase 387 (73-393) U/L Urine Color Urine Appearance (Clear) Urine pH (4.5-7.5) Ur Specific Foster (1.000-1.030) Urine Protein (Negative) Urine Glucose (UA) (Negative) Urine Ketones (Negative) Urine Blood (Negative) Urine Nitrite (Negative) Urine Bilirubin (Negative) Urine Urobilinogen (Negative) Ur Leukocyte Esterase (Negative) Urine WBC (Auto) (0-5) /hpf Urine RBC (Auto) (0-4) /hpf U Hyaline Cast (Auto) (0-5) /lpf U Epithel Cells (Auto) (0-5) /lpf Urine Bacteria (Auto) (Negative) Urine Yeast (None Prsent) COVID-19 Eval Order SARS-CoV-2 (PCR) (Negative) Influenza Type A (PCR) (Neg) Influenza Type B (PCR) (Neg) RSV (RT-PCR) (Neg) 08/13/20 08/13/20 08/13/20 Range/Units 11:51 13:11 15:12 WBC (4.8-10.8) K/uL RBC (4.2-5.4) M/uL Hgb (12.0-16.0) g/dL Hct (37-47) % MCV (80-100) fL MCH (25-34) pg MCHC (32-36) g/dL RDW Std Deviation (36.4-46.3) fL RDW Coeff of Veronica (11.5-14.5) % Plt Count (130-400) K/uL MPV (7.4-10.4) fL Immature Gran % (Auto) % Neut % (Auto) % Lymph % (Auto) % [place] % (Auto) % Eos % (Auto) % Baso % (Auto) % Neut # (Auto) (1.4-6.5) K/uL Lymph # (Auto) (1.2-3.4) K/uL [place] # (Auto) (0.11-0.59) K/uL Eos # (Auto) (0-0.5) K/uL Baso # (Auto) (0-0.2) K/uL Immature Gran # (Auto) (0.00-0.02) K/uL PT (9.0-12.0) Seconds INR (0.9-1.1) Sodium (136-145) mmol/L Potassium (3.5-5.1) mmol/L Chloride (98-107) mmol/L Carbon Dioxide (21-32) mmol/L Anion Gap (3-11) BUN (7-18) mg/dl Creatinine (0.6-1.2) mg/dl Est Cr Clr Drug Dosing ml/min Est GFR ( Amer) Est GFR (Non-Af Amer) BUN/Creatinine Ratio (10-20) Glucose (70-99) mg/dl Lactate 1.3 (0.4-2.0) mmol/L Calcium (8.5-10.1) mg/dl Total Bilirubin (0.2-1) mg/dl AST (15-37) U/L ALT (12-78) U/L Alkaline Phosphatase (45-117) U/L Troponin I (0-0.045) ng/ml Total Protein (6.4-8.2) gm/dl Albumin (3.4-5.0) gm/dl Globulin (2.5-4.0) gm/dl Albumin/Globulin Ratio (0.9-2) Lipase (73-393) U/L Urine Color Yellow Urine Appearance Cloudy A (Clear) Urine pH 5.0 (4.5-7.5) Ur Specific Foster 1.020 (1.000-1.030) Urine Protein Negative (Negative) Urine Glucose (UA) 3+ H (Negative) Urine Ketones Negative (Negative) Urine Blood 2+ H (Negative) Urine Nitrite Negative (Negative) Urine Bilirubin Negative (Negative) Urine Urobilinogen Negative (Negative) Ur Leukocyte Esterase Negative (Negative) Urine WBC (Auto) 1-5 (0-5) /hpf Urine RBC (Auto) 5-10 H (0-4) /hpf U Hyaline Cast (Auto) 1-5 (0-5) /lpf U Epithel Cells (Auto) >30 H (0-5) /lpf Urine Bacteria (Auto) Negative (Negative) Urine Yeast Present A (None Prsent) COVID-19 Eval Order [facility]Rsv at [facility] SARS-CoV-2 (PCR) (Negative) Influenza Type A (PCR) (Neg) Influenza Type B (PCR) (Neg) RSV (RT-PCR) (Neg) 08/13/20 Range/Units 15:12 WBC (4.8-10.8) K/uL RBC (4.2-5.4) M/uL Hgb (12.0-16.0) g/dL Hct (37-47) % MCV (80-100) fL MCH (25-34) pg MCHC (32-36) g/dL RDW Std Deviation (36.4-46.3) fL RDW Coeff of Veronica (11.5-14.5) % Plt Count (130-400) K/uL MPV (7.4-10.4) fL Immature Gran % (Auto) % Neut % (Auto) % Lymph % (Auto) % [place] % (Auto) % Eos % (Auto) % Baso % (Auto) % Neut # (Auto) (1.4-6.5) K/uL Lymph # (Auto) (1.2-3.4) K/uL [place] # (Auto) (0.11-0.59) K/uL Eos # (Auto) (0-0.5) K/uL Baso # (Auto) (0-0.2) K/uL Immature Gran # (Auto) (0.00-0.02) K/uL PT (9.0-12.0) Seconds INR (0.9-1.1) Sodium (136-145) mmol/L Potassium (3.5-5.1) mmol/L Chloride (98-107) mmol/L Carbon Dioxide (21-32) mmol/L Anion Gap (3-11) BUN (7-18) mg/dl Creatinine (0.6-1.2) mg/dl Est Cr Clr Drug Dosing ml/min Est GFR ( Amer) Est GFR (Non-Af Amer) BUN/Creatinine Ratio (10-20) Glucose (70-99) mg/dl Lactate (0.4-2.0) mmol/L Calcium (8.5-10.1) mg/dl Total Bilirubin (0.2-1) mg/dl AST (15-37) U/L ALT (12-78) U/L Alkaline Phosphatase (45-117) U/L Troponin I (0-0.045) ng/ml Total Protein (6.4-8.2) gm/dl Albumin (3.4-5.0) gm/dl Globulin (2.5-4.0) gm/dl Albumin/Globulin Ratio (0.9-2) Lipase (73-393) U/L Urine Color Urine Appearance (Clear) Urine pH (4.5-7.5) Ur Specific [place] (1.000-1.030) Urine Protein (Negative) Urine Glucose (UA) (Negative) Urine Ketones (Negative) Urine Blood (Negative) Urine Nitrite (Negative) Urine Bilirubin (Negative) Urine Urobilinogen (Negative) Ur Leukocyte Esterase (Negative) Urine WBC (Auto) (0-5) /hpf Urine RBC (Auto) (0-4) /hpf U Hyaline Cast (Auto) (0-5) /lpf U Epithel Cells (Auto) (0-5) /lpf Urine Bacteria (Auto) (Negative) Urine Yeast (None Prsent) COVID-19 Eval Order SARS-CoV-2 (PCR) NEGATIVE (Negative) Influenza Type A (PCR) Negative (Neg) Influenza Type B (PCR) Negative (Neg) RSV (RT-PCR) Negative (Neg) Administered Medications Discontinued Medications Fentanyl Citrate (Fentanyl Citrate 100 Mcg/2 Ml Vial) 100 mcg IV NOW STA Stop: 08/13/20 10:49 Last Admin: 08/13/20 11:28 Dose: 100 mcg Documented by: [id number] Sodium Chloride (Nss 1000ml) 1,000 mls @ 999 mls/hr IV .Q1H1M STA Stop: 08/13/20 11:48 Last Infusion: 08/13/20 12:36 Dose: 0 mls/hr Documented by: [id number] Admin: 08/13/20 11:28 Dose: 999 mls/hr Documented by: [id number] Piperacillin Sod/Tazobactam Sod (Zosyn) 4.5 gm in 120 mls @ 240 mls/hr IV NOW ONE Stop: 08/13/20 13:18 Last Infusion: 08/13/20 13:46 Dose: 0 mls/hr Documented by: [id number] Admin: 08/13/20 13:08 Dose: 240 mls/hr Documented by: [id number] Sodium Chloride (Nss) 500 mls @ 999 mls/hr IV .Q31M ONE Stop: 08/13/20 14:46 Last Infusion: 08/13/20 16:11 Dose: 0 mls/hr Documented by: [id number] Admin: 08/13/20 15:17 Dose: 999 mls/hr Documented by: [id number] Ioversol (Ioversol 100ml) 93 ml IV ONCE ONE Stop: 08/13/20 10:57 Last Admin: 08/13/20 10:56 Dose: 93 ml Documented by: [id number] Morphine Sulfate (Morphine Sulfate 4 Mg/Ml 1 Ml Carp\Vial) 4 mg IV NOW STA Stop: 08/13/20 14:17 Last Admin: 08/13/20 15:17 Dose: 4 mg Documented by: [id number] Ondansetron HCl (Ondansetron Inj 2 Mg/Ml 2 Ml Vial) 4 mg IV NOW STA Stop: 08/13/20 10:49 Last Admin: 08/13/20 11:28 Dose: 4 mg Documented by: [id number] Ondansetron HCl (Ondansetron Inj 2 Mg/Ml 2 Ml Vial) 4 mg IV NOW STA Stop: 08/13/20 14:17 Last Admin: 08/13/20 15:18 Dose: 4 mg Documented by: [id number] Discharge Plan Visit Data Chief Complaint: Flank Pain Stated Complaint: KIDNEY PAIN, GROIN PAIN, DIZZY ED Provider: Javan Humphrey Discharge Problem: Acute right flank pain, Dizziness, Kidney stone on right side Patient Disposition: Being Evaluated by Hospitalist Forms Stand Alone Forms: My [facility] Prescriptions Prescriptions: No Action Farxiga 5 mg tablet 5 mg PO QAM Qty: 90 RF: 1 duloxetine 40 mg capsule,delayed release(DR/EC) 40 mg PO DAILY Qty: 30 RF: 11 cyclobenzaprine 5 mg tablet 5 mg PO TID PRN (Reason: Pain) Qty: 30 RF: 0 lorazepam 0.5 mg tablet 0.5 mg PO TID PRN (Reason: Anxiety) Qty: 20 RF: 0 multivitamin [Daily Multi-Vitamin] tablet 1 tab PO DAILY RF: 0 aspirin 81 mg Tablet,Delayed Release (Dr/Ec) 81 mg PO DAILY RF: 0 bupropion HCl 100 mg tablet 100 mg PO TID RF: 0 Referrals Referrals: Paola Gregory MD [Primary Care Provider] -
[2020-08-13 12:04] LABS: Basophils # (auto) 0.03 K/uL (0-0.2); Basophils % (auto) 0.2 %; Eosinophils # (auto) 0.45 K/uL (0-0.5); Eosinophils % (auto) 2.5 %; Hematocrit (blood only) 47.8 % (37-47); Hemoglobin 15.4 g/dL (12.0-16.0); Immature Granulocytes # (auto) 0.05 K/uL (0.00-0.02); Immature Granulocytes % (auto) 0.3 %; Lymphocytes # (auto) 1.76 K/uL (1.2-3.4); Lymphocytes % (auto) 9.8 %; Mean Corpuscular Hemoglobin 29.1 pg (25-34); Mean Corpuscular Hgb Conc 32.2 g/dL (32-36); Mean Corpuscular Volume 90.2 fL (80-100); Mean Platelet Volume 9.2 fL (7.4-10.4); Monocytes # (auto) 1.72 K/uL (0.11-0.59); Monocytes % (auto) 9.6 %; Neutrophils # (auto) 13.98 K/uL (1.4-6.5); Neutrophils % (auto) 77.6 %; Platelet Count 270 K/uL (130-400); RDW Coefficient of Variation 14.1 % (11.5-14.5); RDW Standard Deviation 46.6 fL (36.4-46.3); White Blood Count 17.99 K/uL (4.8-10.8)
[2020-08-13 12:13] LABS: Prothrombin Time 10.3 Seconds (9.0-12.0)
[2020-08-13 12:21] LABS: Alanine Aminotransferase 22 U/L (12-78); Albumin Level 3.4 gm/dl (3.4-5.0); Aspartate Aminotransferase 12 U/L (15-37); BUN Creatinine Ratio 17.3 (10-20); Blood Urea Nitrogen 27 mg/dl (7-18); Calcium 9.1 mg/dl (8.5-10.1); Carbon Dioxide 27 mmol/L (21-32); Chloride 108 mmol/L (98-107); Creatinine Clr Calc Pharmacy 44.1 ml/min; Est GFR (African American) 39.7; Est GFR (Non-African American) 34.3; Glucose 148 mg/dl (70-99); Lipase 387 U/L (73-393); Potassium 4.5 mmol/L (3.5-5.1); Sodium 140 mmol/L (136-145)
[2020-08-13 12:26] LABS: Albumin Globulin Ratio 0.8 (0.9-2); Alkaline Phosphatase 106 U/L (45-117); Bilirubin,Total 0.3 mg/dl (0.2-1); Globulin 4.3 gm/dl (2.5-4.0); Total Protein 7.7 gm/dl (6.4-8.2); Troponin I < 0.015 ng/ml (0-0.045)
--- NOTE | 2020-08-13 12:42 | CT Scan Report ---
ABDOMEN AND PELVIS CT WITH IV CONTRAST CT DOSE: 1512.44 mGy.cm HISTORY: R flank pain to groin, ?stone TECHNIQUE: Multiaxial CT images of the abdomen and pelvis were performed following the use of intrave nous contrast. A dose lowering technique was utilized adhering to the principles of ALARA. COMPARISON STUDY: Abdomen and pelvis CTA 07/27/2020. FINDINGS: The lung bases are clear. No suspicious lytic or blastic osseous lesions. The liver, spleen , adrenal glands, and pancreas unremarkable. There is a severely atrophic left kidney, unchanged. Mod erate right hydronephrosis secondary to an obstructing 8 mm stone at the ureteropelvic junction. The bladder is not well-distended but appears unremarkable. The uterus and bilateral adnexa are within no rmal limits. Right perinephric edema which is likely reactive. No bowel wall thickening or obstructio n. Normal appendix. A few small stones at the gallbladder neck. No definite gallbladder wall thickeni ng. There is a 3 mm stone within the distal common bile duct on image 151. The common bile duct is mi ldly distended measuring up to 9 mm. No gallbladder wall thickening. There are multiple additional ri ght renal calculi. 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 IMPRESSION: 1. Moderate right hydronephrosis secondary to an obstructing 8 mm stone at the ureteropelvic junction . 2. Multiple additional right renal calculi. 3. Severely atrophic the left kidney, unchanged. 4. A few small gallstones at the neck of the gallbladder. There is also a 3 mm stone within the dista l common bile duct. The common bile duct is mildly distended measuring up to 9 mm. Follow-up GI consu ltation recommended. 5. No definite bowel wall thickening or obstruction. 6. Additional findings as described above. ACT 112: Negative or not required by law. Electronically signed by: Kane Schmidt M.D. 08/13/2020 12:41 PM
[2020-08-13] MEDS ORDERED: PIPERACILLIN/TAZOBACTAM 4.5 GM/120 ML BAG IV ONE (12:49)
[2020-08-13] MEDS ORDERED: PIPERACILL/TAZOBAC CONSULT ACTIVE PRN ×2 (12:49→18:19)
[2020-08-13 13:23] LABS: Appearance Urine Cloudy (Clear); Bacteria Urine Automated Negative (Negative); Bilirubin Urine Negative (Negative); Blood Urine 2+ (Negative); Color Urine Yellow; Epithelial Cell Urine Auto >30 /lpf (0-5); Glucose Urine UA 3+ (Negative); Ketones Urine Negative (Negative); Leukocyte Esterase Urine Negative (Negative); Nitrite Urine Negative (Negative); Protein Urine Negative (Negative); Urobilinogen Urine Negative (Negative)
--- NOTE | 2020-08-13 13:26 | Electrocardiogram Report ---
Test Reason : Blood Pressure : / mmHG Vent. Rate : 092 BPM Atrial Rate : 092 BPM P-R Int : 190 ms QRS Dur : 086 ms QT Int : 340 ms P-R-T Axes : 048 -42 066 degrees QTc Int : 420 ms Normal sinus rhythm Left axis deviation Inferior infarct (cited on or before 07-SEP-2011) Anterolateral infarct (cited on or before 07-SEP-2011) Abnormal ECG When compared with ECG of 27-JUL-2020 14:19, No significant change was found Confirmed by Isael Mejia ([id number]) on 08/13/2020 1:26:25 PM Referred By: REFERRED SELF Confirmed By:Isael Mejia
[2020-08-13] MEDS ORDERED: SODIUM CHLORIDE 0.9% 500 ML IV ONE (14:16)
[2020-08-13] MEDS ORDERED: MoRPHine SULFATE 4 MG/ML 1 ML CARP\\VIAL IV STA (14:16)
--- NOTE | 2020-08-13 14:45 | History & Physical Report ---
Date of Service August 13, 2020 Assessment & Plan (1) Right nephrolithiasis: Patient be admitted for hydration pain control and urological consultation. Size of the stone being greater than 5 mm likely means intervention may be needed CT abdomen pelvis 08/13/2020 IMPRESSION: 1. Moderate right hydronephrosis secondary to an obstructing 8 mm stone at the ureteropelvic junction. 2. Multiple additional right renal calculi. 3. Severely atrophic the left kidney, unchanged. 4. A few small gallstones at the neck of the gallbladder. There is also a 3 mm stone within the distal common bile duct. The common bile duct is mildly distended measuring up to 9 mm. Follow-up GI consultation recommended. 5. No definite bowel wall thickening or obstruction. (2) Common bile duct stone: Incidentally noted common bile duct stone with dilatation of the common b ile duct, we will check LFTs in the morning. Currently seems to be no physiological compromise due to this. If need be an ultrasound of right upper quadrant could be considered however without LFT abnormalities not clear what we would do with the results. (3) Heart block AV second degree: Patient and evidence of dropped beats while she was in the emergency department. We have a good tracing of this to be second-degree type II she is never had issues like this before but she was complaining of prehospital dizziness we will check thyroid Lyme disease echocardiogram is pending and a cardiology consult be undertaken (4) Heart murmur: Patient has a murmur noted which sounds significant on auscultation. Her last office visit also noted this to be mild. Patient does have some lightheadedness with exertion. Incidentally she says her son also has a heart murmur. She has never had an echocardiogram or been told previous to her last office visit that she had a murmur. 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 for procedure will use sliding scale insulin to control her glucose at this time (7) CKD (chronic kidney disease) stage 3, GFR 30-59 ml/min: Patient has acute kidney injury with history of chronic kidney disease stage III we will hydrate her avoid nonsteroidals use parenteral opiates for pain control institute Flomax therapy (8) DVT prophylaxis: DVT prevention is SCDs given the fact that she may have interventional testing performed History of Present Illness Primary Care Provider: Paola Gregory MD 65-year-old female history of right solitary kidney details are unclear but noted by nephrology in the past., fibromyalgia, type 2 diabetes presenting 08/13/2020 with a complaint of 2 weeks of smoldering and now worsening right flank pain into the groin. Reports last night questionably little bit of blood in her urine. She has severe pain in her right flank rating to the right inguinal and groin area. Patient sees urology and previously has had stents placed for nephrolithiasis last cystoscopy is 06/08/2018 with stent placement and stone retrieval. CT scan performed 08/13 shows moderate right hydronephrosis secondary to obstructing 8 mm stone at the ureteropelvic junction multiple additional right renal calculi noted there is incidental notation of a 3 mm stone in the common bile duct with bile duct distention to 9 mm. LFTs on presentation are unremarkable patient was given antibiotics in the emergency department Allergies Allergy/AdvReac Type Severity Reaction Status Date / Time No Known Allergies Allergy Verified 08/13/20 11:15 Home Medications Medication Instructions Recorded Confirmed Type aspirin 81 mg PO DAILY 06/15/18 08/13/20 History multivitamin 1 tab PO DAILY 02/12/19 08/13/20 History cyclobenzaprine 5 mg tablet 5 mg PO TID PRN #30 tab 09/30/19 08/13/20 Rx dapagliflozin 5 mg tablet 5 mg PO QAM #90 tab 05/05/20 08/13/20 Rx lorazepam 0.5 mg tablet 0.5 mg PO TID PRN #20 tab 06/24/20 08/13/20 Rx bupropion HCl 100 mg PO TID 07/27/20 08/13/20 History duloxetine 40 mg capsule,delayed 40 mg PO DAILY #30 cap 08/03/20 08/13/20 Rx release Past Med/Surg History Medical History Anxiety ARF (acute renal failure) Fibromyalgia History of nephrolithiasis Renal colic on right side Routine adult health maintenance Surgical History History of delivery History of cystoscopy History of lithotripsy Family History Grandmother Heart disease Grandfather Heart disease Other T2DM (type 2 diabetes mellitus) Wilm's tumor (nephroblastoma) Denies family history of Ovarian cancer Prostate cancer Breast cancer Colorectal cancer Hypertension Social History Smoking Status: Never smoker Tobacco Type: Cigarettes Hx Alcohol Use: Yes Alcohol type: wine Hx Substance Use: No Preferred Language: Malaysian Communication Ability: Effective Visual Impairment: No Limitations Field Service Analyst Required: No Beliefs That Will Affect Care: None marital status: Current Living Situation: Spouse Current Living Situation Comment: guardian of 9 month on grandchild Other Information That Helps Us Care for You: No Feels Safe at Home: Yes Safety Concerns: Feels Safe At This Time Assistive Devices: Cane Review of Systems Review of Systems: Mild distress and fatigue no headache, blurry or double vision no speech or swallowing issues no chest pain, pressure or palpitations no shortness of breath, cough or wheezes no abdominal pain, nausea or vomiting, diarrhea or constipation no dysuria, hematuria or frequency no focal joint pain or swelling no back pain, CVA tenderness or radicular pain no bruising, bleeding or rashes no focal signs of weakness or numbness or altered sensation no complaints of anxiety or depression.. Physical Exam Physical Exam: The patient appeared well nourished and normally developed. Vital signs as documented. Head exam is normocephalic atraumatic no scleral icterus Neck is without JVD, thyromegaly, or carotid bruits. Lungs are clear to auscultation, no focal loss of breath sounds Cardiac exam, Rhythm is regular.. No murmurs, rubs or gallops. Abdominal exam reveals normal bowel sounds, soft non tender, no masses Extremities are nonedematous and both pedal pulses are present Neurologic exam is alert and oriented, no focal loss of strength or sensation Skin is without bruises or rashes Psychologically is without concerns for anxiety or depression Results & Data Results & Data ([facility]) Vital Signs (Past 12 Hours) Vital Signs Temp Pulse Resp BP Pulse Ox 08/13/20 14:00 84 20 173/94 H 90 08/13/20 13:50 84 19 91 08/13/20 13:40 92 H 24 92 08/13/20 13:30 83 21 160/101 H 91 08/13/20 13:20 89 20 92 08/13/20 13:10 98 H 13 94 08/13/20 13:01 81 20 186/107 H 98 08/13/20 13:00 86 19 08/13/20 12:50 82 18 97 08/13/20 12:40 86 24 97 08/13/20 12:33 86 19 98 08/13/20 12:10 90 21 96 08/13/20 12:01 89 19 95 08/13/20 12:00 90 20 158/99 H 95 08/13/20 11:50 94 H 22 94 08/13/20 11:46 91 H 19 95 08/13/20 11:32 92 H 23 146/68 H 94 08/13/20 10:18 98.4 F 84 20 153/87 H 97 PG Care Time/CCT Total # of Minutes Spent Total Time Spent with Patient: Total time spent is greater than 50% in coordination of care (as documented) at patient's floor/unit and/or counseling patient: Coding Level of Care Code 85338 Initial Inpt Care Lvl 3 Diagnoses Right nephrolithiasis N20.0 Common bile duct stone K80.50 Heart block AV second degree I44.1 Heart murmur R01.1 Depression due to physical illness F06.31 T2DM (type 2 diabetes mellitus) E11.69 Diabetes mellitus complication status: with other specified complication Diabetes mellitus detention insulin use: without detention use CKD (chronic kidney disease) stage 3, GFR 30-59 ml/min N18.3 DVT prophylaxis Z29.9 (1) T2DM (type 2 diabetes mellitus) Diabetes mellitus complication status: with other specified complication Diabetes mellitus supervisor intermediates insulin use: without supervisor intermediates use Qualified Code(s): E11.69 - Type 2 diabetes mellitus with other specified complication
[2020-08-13 15:59] LABS: Influenza A virus by PCR Negative (Neg); Influenza B virus by PCR Negative (Neg); RSV by PCR Negative (Neg); SARS CoV2 RNA(COVID-19) InHosp NEGATIVE (Negative)
[2020-08-13] MEDS ORDERED: ACETAMINOPHEN 500 MG TAB PO PRN (18:19)
[2020-08-13] MEDS ORDERED: LORazepam 0.5 MG TAB PO PRN (18:19)
[2020-08-13] MEDS ORDERED: HYDROmorphone INJ 1 MG/ML SYRINGE IV PRN (18:19)
[2020-08-13] MEDS ORDERED: CYCLOBENZAPRINE HCL 10 MG TAB PO PRN (18:19)
[2020-08-13] MEDS ORDERED: HYDROmorphone INJ 0.5 MG/0.5 ML SYR IV PRN (18:19)
[2020-08-13] MEDS ORDERED: CARBOHYDRATES FOR HYPOGLYCEMIA PO PRN (18:19)
[2020-08-13] MEDS ORDERED: GLUCOSE 40% GEL 15 GM TUBE PO PRN (18:19)
[2020-08-13] MEDS ORDERED: DEXTROSE 50% 50 ML SYRINGE IV PRN (18:19)
[2020-08-13] MEDS ORDERED: GLUCAGON FOR INJ 1 MG VIAL SQ PRN (18:19)
[2020-08-13] MEDS ORDERED: GLUCOSE 10 TABS/TUBE PO PRN (18:19)
[2020-08-13] MEDS ORDERED: oxyCODONE HCL IR 5 MG TAB (IMMEDIATE RELEASE) PO PRN (18:19)
[2020-08-13] MEDS ORDERED: ONDANSETRON INJ 2 MG/ML 2 ML VIAL IV PRN (18:19)
[2020-08-13 19:21] LABS: Lyme Ab IgG w/WB Rflx Negative (Negative); Lyme Ab IgM w/WB Rflx Negative (Negative)
[2020-08-13] MEDS: PIPERACILLIN/TAZOBACTAM 4.5 GM in DEXTROSE 5% 100 ML IV SCH (20:21)
[2020-08-13] MEDS: SODIUM CHLORIDE 0.9% 1000ML 1,000 ML IV SCH (20:21)
[2020-08-13] MEDS: TAMSULOSIN HCL 0.4 MG CAP PO SCH (20:22)
[2020-08-13] MEDS: buPROPion HCl 100 MG TABLET PO SCH (20:22)
[2020-08-13] MEDS: INSULIN ASPART 100 UNITS/ML 3 ML PEN SC SCH ×2 (20:23→22:52)
[2020-08-14] MEDS: SODIUM CHLORIDE 0.9% 1000ML 1,000 ML IV SCH ×2 (02:45→10:43)
[2020-08-14] MEDS: PIPERACILLIN/TAZOBACTAM 4.5 GM in DEXTROSE 5% 100 ML IV SCH ×2 (02:46→12:07)
[2020-08-14 07:06] LABS: Albumin Globulin Ratio 0.7 (0.9-2); Albumin Level 2.9 gm/dl (3.4-5.0); BUN Creatinine Ratio 9.7 (10-20); Bilirubin,Total 0.5 mg/dl (0.2-1); Calcium 8.3 mg/dl (8.5-10.1); Creatinine Clr Calc Pharmacy 18.2 ml/min; Est GFR (African American) 14.4; Est GFR (Non-African American) 12.5; Globulin 3.9 gm/dl (2.5-4.0); Potassium 4.9 mmol/L (3.5-5.1); Total Protein 6.8 gm/dl (6.4-8.2)
[2020-08-14] MEDS ORDERED: fentaNYL citrate 100 MCG/2 ML VIAL ONE (07:39)
[2020-08-14] MEDS ORDERED: MIDAZOLAM HCL 1 MG/ML 2ML VIAL ONE (07:39)
[2020-08-14] MEDS ORDERED: PROPOFOL IV EMULSION 10 MG/ML 20 ML VIAL IV ONE (07:39)
[2020-08-14] MEDS ORDERED: ONDANSETRON INJ 2 MG/ML 2 ML VIAL ONE (07:39)
[2020-08-14] MEDS ORDERED: LIDOCAINE HCL 2% 2 ML VIAL/AMP(20MG/ML) INFIL ONE (07:39)
--- NOTE | 2020-08-14 07:46 | Anesthesiology Consultation ---
Date of Service August 14, 2020 Assessment & Plan Chart Review Chart Review: Acceptable Risk for Surgery (Urgent due to one kidney) ASA [id number] Proposed Anesthesia Anesthesia Type: MAC History Surgery Operation Date: 08/14/20 08:00 Proposed Procedures p Ureteral Stent Insertion/Removal - Efraín Holt MD Height/Weight Height: 5 ft 4 in Weight: 105.4 kg Allergies Allergy/AdvReac Type Severity Reaction Status Date / Time No Known Allergies Allergy Verified 08/13/20 11:15 Medications Home Medications Medication Instructions Recorded Confirmed Last Taken aspirin 81 mg PO DAILY 06/15/18 08/13/20 08/13/20 multivitamin 1 tab PO DAILY 02/12/19 08/13/20 08/13/20 cyclobenzaprine 5 mg tablet 5 mg PO TID PRN #30 tab 09/30/19 08/13/20 Unknown dapagliflozin 5 mg tablet 5 mg PO QAM #90 tab 05/05/20 08/13/20 08/13/20 lorazepam 0.5 mg tablet 0.5 mg PO TID PRN #20 tab 06/24/20 08/13/20 Unknown bupropion HCl 100 mg PO TID 07/27/20 08/13/20 08/13/20 duloxetine 40 mg capsule,delayed 40 mg PO DAILY #30 cap 08/03/20 08/13/20 08/13/20 release Active Medications Generic Name Dose Route Start Last Admin Trade Name Freq PRN Reason Stop Dose Admin Bupropion HCl 100 mg 08/13/20 21:00 08/13/20 20:22 Bupropion Hcl 100 Mg Tablet PO 09/12/20 20:59 100 mg TID HERRERA Administration Sodium Chloride 1,000 mls @ 125 mls/hr 08/13/20 19:00 08/14/20 02:45 Nss 1000ml IV 08/14/20 18:59 125 mls/hr .Q8H HERRERA Administration Piperacillin Sod/Tazobactam 120 mls @ 30 mls/hr 08/13/20 19:00 08/14/20 06:48 Sod 4.5 gm/ Dextrose IV 08/23/20 18:59 Infused Q8H HERRERA Infusion Protocol Insulin Aspart 0 units 08/13/20 18:19 08/13/20 22:52 Insulin Aspart 100 Units/Ml 3 Ml Pen SC 09/12/20 18:18 Not Given ACHS HERRERA Tamsulosin HCl 0.4 mg 08/13/20 21:00 08/13/20 20:22 Tamsulosin Hcl 0.4 Mg Cap PO 09/12/20 20:59 0.4 mg HS HERRERA Administration Past Medical History Medical History Anxiety ARF (acute renal failure) Fibromyalgia History of nephrolithiasis Renal colic on right side Routine adult health maintenance Past Family History Family History Grandmother Heart disease Grandfather Heart disease Other T2DM (type 2 diabetes mellitus) Wilm's tumor (nephroblastoma) Denies family history of Ovarian cancer Prostate cancer Breast cancer Colorectal cancer Hypertension Past Surgical History Surgical History History of delivery History of cystoscopy History of lithotripsy Social History Smoking Status: Never smoker Hx Alcohol Use: Yes Alcohol type: wine alcohol intake frequency: a few times a month Hx Substance Use: No substance use type: does not use Physical Exam Vital Signs Last Vital Signs Temp 36.7 C 08/14/20 04:00 Pulse 81 08/14/20 04:00 Resp 16 08/14/20 04:00 BP 116/73 08/14/20 04:00 Pulse Ox 93 08/14/20 04:00 Testing Laboratory Results 08/13/20 11:51 08/14/20 06:16 PT 10.3 Seconds (9.0-12.0) 08/13/20 11:51 INR 1.0 (0.9-1.1) 08/13/20 11:51 Urine Color Yellow 08/13/20 13:11 Urine Appearance Cloudy (Clear) A 08/13/20 13:11 Urine pH 5.0 (4.5-7.5) 08/13/20 13:11 Ur Specific Gateway 1.020 (1.000-1.030) 08/13/20 13:11 Urine Protein Negative (Negative) 08/13/20 13:11 Urine Glucose (UA) 3+ (Negative) H 08/13/20 13:11 Urine Ketones Negative (Negative) 08/13/20 13:11 Urine Nitrite Negative (Negative) 08/13/20 13:11 Ur Leukocyte Esterase Negative (Negative) 08/13/20 13:11 Urine WBC (Auto) 1-5 /hpf (0-5) 08/13/20 13:11 Urine RBC (Auto) 5-10 /hpf (0-4) H 08/13/20 13:11 U Hyaline Cast (Auto) 1-5 /lpf (0-5) 08/13/20 13:11 U Epithel Cells (Auto) >30 /lpf (0-5) H 08/13/20 13:11 Urine Bacteria (Auto) Negative (Negative) 08/13/20 13:11 08/13/20 13:11 Urine Culture - Final Urine,Clean Catch Three types of organisms present, all high counts probable skin yanelis. No further identifications or sensitivities to follow. 08/14/20 08/13/20 07:08 20:17 POC Glucose 146 H 149 H
--- NOTE | 2020-08-14 08:06 | Urology Consultation ---
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 with numerous comorbidities who presents with an obstructing right ureteral calculus Associated renal dysfunction Pain Creatinine 3.6 today, was 1.0 at baseline Allergies Allergy/AdvReac Type Severity Reaction Status Date / Time No Known Allergies Allergy Verified 08/13/20 11:15 Home Medications Medication Instructions Recorded Confirmed Type aspirin 81 mg PO DAILY 06/15/18 08/13/20 History multivitamin 1 tab PO DAILY 02/12/19 08/13/20 History cyclobenzaprine 5 mg tablet 5 mg PO TID PRN #30 tab 09/30/19 08/13/20 Rx dapagliflozin 5 mg tablet 5 mg PO QAM #90 tab 05/05/20 08/13/20 Rx lorazepam 0.5 mg tablet 0.5 mg PO TID PRN #20 tab 06/24/20 08/13/20 Rx bupropion HCl 100 mg PO TID 07/27/20 08/13/20 History duloxetine 40 mg capsule,delayed 40 mg PO DAILY #30 cap 08/03/20 08/13/20 Rx release Patient History Medical History Anxiety ARF (acute renal failure) Fibromyalgia History of nephrolithiasis Renal colic on right side Routine adult health maintenance Surgical History History of delivery History of cystoscopy History of lithotripsy Family History Grandmother Heart disease Grandfather Heart disease Other T2DM (type 2 diabetes mellitus) Wilm's tumor (nephroblastoma) Denies family history of Ovarian cancer Prostate cancer Breast cancer Colorectal cancer Hypertension Social History Smoking Status: Never smoker Tobacco Type: Cigarettes Hx Alcohol Use: Yes Alcohol type: wine Hx Substance Use: No Preferred Language: Syrian Communication Ability: Effective Visual Impairment: No Limitations Horse Buyer Required: No Beliefs That Will Affect Care: None marital status: Current Living Situation: Spouse Current Living Situation Comment: guardian of 9 month on grandchild Other Information That Helps Us Care for You: No Feels Safe at Home: Yes Safety Concerns: Feels Safe At This Time Assistive Devices: None Review of Systems Constitutional: no fever, no chills and no fatigue Eyes: no worsening vision Ear, Nose, Mouth, Throat: no facial pain and no pain with swallowing Respiratory: no cough and no dyspnea Cardiovascular: no chest pain and no palpitations Gastrointestinal: no abdominal pain, no nausea and no vomiting Genitourinary: no dysuria, no difficulty urinating, no urinary frequency and no hematuria Musculoskeletal: no back pain Integumentary: no rash and no urticaria Neurologic: no gait abnormality and no unsteadiness Psychiatric: no behavioral changes and no depression Endocrine: no fatigue Physical Exam Constitutional: well developed and well nourished Neck: neck nontender Respiratory: normal respiratory effort; no respiratory distress and does not use accessory muscles Cardiovascular: Rate/Rhythm: regular rate Vessels: radial pulses present Extremities: no edema Gastrointestinal (Abdomen): Inspection/Auscultation: abdomen normal to inspection Percussion/Palpation: abdomen soft; abdomen nontender and no guarding Musculoskeletal: Head/Neck/Chest: normocephalic and head atraumatic Extremities: extremities normal to inspection Skin: no rashes and no lesions Trauma: no evidence of skin trauma Neurologic: awake; not obtunded Speech / Cognition: normal speech Motor/Sensory: no tremor Psychiatric: Orientation: alert and oriented x 3 Lymphatic: no lymphadenopathy Results & Data ([facility]) Vital Signs (Past 12 Hours) Vital Signs Temp Pulse Resp BP Pulse Ox 08/14/20 04:00 36.7 C 81 16 116/73 93 08/14/20 00:00 36.8 C 75 16 121/80 94 PG Care Time/CCT Total # of Minutes Spent Total Time Spent with Patient: Total time spent is greater than 50% in coordination of care (as documented) at patient's floor/unit and/or counseling patient: Coding Level of Care Code 17841 Inpt Consult Level 5 Diagnoses Acute right flank pain R10.9 CKD (chronic kidney disease) stage 3, GFR 30-59 ml/min N18.3 Solitary kidney Q60.0
[2020-08-14] MEDS ORDERED: ATROPINE SULFATE 0.1 MG/ML 10ML SYR IV PRN (08:24)
[2020-08-14] MEDS ORDERED: fentaNYL citrate 100 MCG/2 ML VIAL IV PRN (08:24)
[2020-08-14] MEDS ORDERED: ONDANSETRON INJ 2 MG/ML 2 ML VIAL IV PRN (08:24)
[2020-08-14] MEDS ORDERED: GLYCOPYRROLATE 0.2 MG/ML VIAL ONE (08:32)
[2020-08-14 08:37] LABS: Basophils # (auto) 0.02 K/uL (0-0.2); Basophils % (auto) 0.2 %; Eosinophils # (auto) 0.48 K/uL (0-0.5); Eosinophils % (auto) 3.6 %; Hematocrit (blood only) 42.9 % (37-47); Hemoglobin 13.6 g/dL (12.0-16.0); Immature Granulocytes # (auto) 0.03 K/uL (0.00-0.02); Immature Granulocytes % (auto) 0.2 %; Lymphocytes # (auto) 1.82 K/uL (1.2-3.4); Lymphocytes % (auto) 13.8 %; Mean Corpuscular Hemoglobin 28.9 pg (25-34); Mean Corpuscular Hgb Conc 31.7 g/dL (32-36); Mean Corpuscular Volume 91.3 fL (80-100); Mean Platelet Volume 9.2 fL (7.4-10.4); Monocytes # (auto) 1.29 K/uL (0.11-0.59); Monocytes % (auto) 9.8 %; Neutrophils # (auto) 9.59 K/uL (1.4-6.5); Neutrophils % (auto) 72.4 %; Platelet Count 243 K/uL (130-400); RDW Coefficient of Variation 14.4 % (11.5-14.5); RDW Standard Deviation 48.2 fL (36.4-46.3); White Blood Count 13.23 K/uL (4.8-10.8)
--- NOTE | 2020-08-14 08:54 | Operative Report ---
PG Post Operative Report Pre & Post Diagnosis Operation Date: 08/14/20 08:00 Pre-Op Diagnosis: Renal failure, hydronephrosis Post-Op Diagnosis: Renal failure, hydronephrosis I identified the patient and participated in the time-out.: Yes Procedure Operation Date: 08/14/20 08:00 Actual Procedures p Cystoscopy, Right Ureteral Stent Placement(Right) - Efraín Holt MD Surgeon Dell Holt MD Reweaver none Estimated Blood Loss 0 Findings Consistent with Post-Op Diagnosis Specimens none Description of Procedure The patient was identified in the preoperative holding area, appropriate informed consents were reviewed and completed and the patient was transferred to the operative suite. Upon arrival, appropriate antibiotics and anesthesia were administered and the patient was placed in dorsal lithotomy position and prepped and draped in sterile fashion. Begin the case to pass a 22 [place]ian cystoscope with 30 degree lens. Inspection revealed a healthy-appearing bladder which was empty upon entry. There is no evidence of inflammation of the bladder. Ureteral orifices were identified in the right orifice was intubated with a sensor wire. As the wire advanced to the kidney there was an immediate discharge of urine. There was contrast retained in the kidney which confirmed I was in an appropriate renal pelvis position. I then placed a 6 [place]ian by 24 cm double-J stent with a good curl in the kidney as well as the bladder. The case was subsequently concluded and she was reversed from anesthesia and taken to the PACU in stable condition. I attest to the content of the Intraoperative Record and any orders documented therein. Any exceptions are noted below.
--- NOTE | 2020-08-14 09:23 | Fluoroscopy Report ---
FL KUB CLINICAL HISTORY: Right ureteral stent. COMPARISON STUDY: None. FLUOROSCOPY TIME: 5 seconds. FINDINGS: Single fluoroscopic spot image demonstrates contrast within the right renal collecting syst em with a right ureteral stent. Only the proximal portion of the stent is identified and appears in g ood position. IMPRESSION: Fluoroscopy provided for right ureteral stent placement. ACT 112: Negative or not required by law. Electronically signed by: Kane Schmidt M.D. 08/14/2020 9:22 AM
[2020-08-14] MEDS: MULTIVITAMIN TAB PO SCH (10:39)
[2020-08-14] MEDS: DULoxetine HCL 20 MG CAP PO SCH (10:39)
[2020-08-14] MEDS: buPROPion HCl 100 MG TABLET PO SCH ×3 (10:40→21:01)
--- NOTE | 2020-08-14 10:41 | Anesthesiology Progress Note ---
Date of Service August 14, 2020 Anesthesia Post Procedure Vital Signs Vital Signs: Temp Pulse Pulse Pulse Resp BP BP 08/14/20 09:46 36.7 C 92 H 16 119/64 08/14/20 09:10 88 16 108/56 L 08/14/20 09:00 89 16 97/56 L 08/14/20 08:52 82 16 119/55 L 08/14/20 04:00 36.7 C 81 16 116/73 08/14/20 00:00 36.8 C 75 16 121/80 08/13/20 20:00 36.7 C 96 H 16 156/74 H 08/13/20 18:20 36.9 C 96 H 22 165/90 H 08/13/20 17:31 79 16 168/93 H 08/13/20 17:30 78 17 08/13/20 17:20 86 15 08/13/20 17:10 78 19 08/13/20 17:01 80 18 147/87 H 08/13/20 17:00 79 17 08/13/20 16:50 78 17 08/13/20 16:40 82 23 08/13/20 16:31 74 17 08/13/20 16:30 74 18 199/102 H 08/13/20 16:20 80 22 08/13/20 16:10 78 15 08/13/20 16:01 79 18 186/120 H 08/13/20 16:00 77 19 08/13/20 15:50 88 21 08/13/20 15:40 83 18 08/13/20 15:31 79 18 08/13/20 15:30 82 17 173/87 H 08/13/20 15:20 83 21 08/13/20 15:10 91 H 31 H 08/13/20 15:01 85 18 08/13/20 15:00 85 15 160/94 H 08/13/20 14:50 81 21 08/13/20 14:40 81 23 08/13/20 14:31 83 17 08/13/20 14:30 81 19 162/115 H 08/13/20 14:20 91 H 14 08/13/20 14:10 85 21 08/13/20 14:01 83 21 08/13/20 14:00 84 20 173/94 H 08/13/20 13:50 84 19 08/13/20 13:40 92 H 24 08/13/20 13:30 83 21 160/101 H 08/13/20 13:20 89 20 08/13/20 13:10 98 H 13 08/13/20 13:01 81 20 186/107 H 08/13/20 13:00 86 19 08/13/20 12:50 82 18 08/13/20 12:40 86 24 08/13/20 12:33 86 19 08/13/20 12:10 90 21 08/13/20 12:01 89 19 08/13/20 12:00 90 20 158/99 H 08/13/20 11:50 94 H 22 08/13/20 11:46 91 H 19 08/13/20 11:32 92 H 23 146/68 H Pulse Ox 08/14/20 09:46 98 08/14/20 09:10 98 08/14/20 09:00 98 08/14/20 08:52 99 08/14/20 04:00 93 08/14/20 00:00 94 08/13/20 20:00 99 08/13/20 18:20 94 08/13/20 17:31 92 08/13/20 17:30 92 08/13/20 17:20 93 08/13/20 17:10 93 08/13/20 17:01 93 08/13/20 17:00 08/13/20 16:50 96 08/13/20 16:40 95 08/13/20 16:31 93 08/13/20 16:30 94 08/13/20 16:20 94 08/13/20 16:10 90 08/13/20 16:01 92 08/13/20 16:00 93 08/13/20 15:50 91 08/13/20 15:40 93 08/13/20 15:31 92 08/13/20 15:30 91 08/13/20 15:20 94 08/13/20 15:10 97 08/13/20 15:01 95 08/13/20 15:00 92 08/13/20 14:50 91 08/13/20 14:40 92 08/13/20 14:31 92 08/13/20 14:30 91 08/13/20 14:20 93 08/13/20 14:10 08/13/20 14:01 90 08/13/20 14:00 90 08/13/20 13:50 91 08/13/20 13:40 92 08/13/20 13:30 91 08/13/20 13:20 92 08/13/20 13:10 94 08/13/20 13:01 98 08/13/20 13:00 08/13/20 12:50 97 08/13/20 12:40 97 08/13/20 12:33 98 08/13/20 12:10 96 08/13/20 12:01 95 08/13/20 12:00 95 08/13/20 11:50 94 08/13/20 11:46 95 08/13/20 11:32 94 Transfer of Care Handoff Completed per policy Notes Mental Status: alert / awake / arousable Patient Amnestic to Procedure: Yes Nausea / Vomiting: adequately controlled Pain: adequately controlled Airway Patency, RR, SpO2: stable & adequate BP & HR: stable & adequate Hydration State: stable & adequate Anesthetic Complications: no major complications apparent
[2020-08-14] MEDS: INSULIN ASPART 100 UNITS/ML 3 ML PEN SC SCH ×4 (10:42→21:05)
--- NOTE | 2020-08-14 10:54 | Hospitalist Progress Note ---
Date of Service August 14, 2020 Assessment & Plan (1) Right nephrolithiasis: 65 yo F PMHx left atrophic kidney of unknown cause with resultant CKD stage III, 2 diabetes, anxiety, depression, fibromyalgia admitted for obstructive right renal calculus and LEXUS. Obstructive right renal calculus: -Presented to ER with right flank pain, nausea. -CTAP showed 8mm obstructive calculus at right ureteropelvic junction, with resultant right moderate hydronephrosis. -Urology consulted, stent placed this AM with significant improvement in symptoms. -Was placed on Zosyn on admission; discontinued as UA and UCx not suggestive of infected stone. -WBC count elevated to 17.99 -> 13 today, suspect elevation due to inflammation from obstructed stone. -Repeat CBC tomorrow AM. LEXUS on CKD stage 3: -Baseline creatinine ~1.3 secondary to one working kidney. -This AM with creatinine 3.60, BUN/Cr ratio <20. -Post renal in the setting of obstructive renal calculus. -Encourage PO fluid intake, as well as completion of IVF infusion prior to transfer to Med/Surg. -Repeat BMP tomorrow AM. Heart block: -In ER noted to have one episode of complete heart block while undergoing acute evaluation for pain secondary to renal calculus. -Cardiology consulted and appreciate recommendations: singular episode likely vagal in quality, no further episodes noted on Telemetry. -Lyme, COVID 19 tests negative, TSH normal. Aortic Stenosis: -04/2020 during PCP visit with Dr. Gregory was noted to have a systolic murmur. -This admission had Echocardiogram which showed moderate . -Consider follow up with Cardiology outpatient. DM2: -History of, _. -Hold dapaglifozin. -SSI while admitted. Anxiety/Depression/Fibromyalgia: -Continue home duloxetine, buproprion; PRN lorazepam and cyclobenzaprine PRN. Code Status: FULL CODE FEN: DM2 diet DVT ppx: ad lul on demand, SCDs DIspo: Transfer to Med/Surg (2) Heart block AV second degree: (3) Heart murmur: (4) T2DM (type 2 diabetes mellitus): (5) CKD (chronic kidney disease) stage 3, GFR 30-59 ml/min: (6) LEXUS (acute kidney injury): (7) Fibromyalgia: (8) Anxiety: Admission and Anticipated Discharge Date Admission Date: August 13, 2020 Supervising Physician Co-Signing Physician Notes Patient seen and examined with PGY-2 Dr. Ojeda. Agree with history, exam findings, assessment and plan of care as outlined. In brief, Ms Cedillo is a 65 year old female with history of DM and CKD admitted with right obstructing nephrolithiasis. Seen after ureteral stent placed with urology in the OR. Pain is improved. + hematuria. Vital signs and nursing notes reviewed. awake and alert. Heart with regular rate and rhythm. Lungs clear to auscultaiton. No CVA tenderness. 1. right obstructing nephrolithiasis s/p stent. Improved. Urine not infective appearing. Stop zosyn. 2. LEXUS. post-renal. Cr 3.6. Repeat Cr in the AM. 3. CBD stone. incidental finding and asymptomatic. can follow tih GI. 4. 2 degree heart block. Has not recurred. Likely secondary to acute pain. Lyme neg. NTD at this point. Appreciate cardiology recs. 5. DM. sliding scale. Dispo: possible discharge tomorrow AM if Cr normalizes. Subjective Evaluated patient this AM after stent placement by Urology for obstructive stone. Patient was groggy from surgery and so revisited patient in the afternoon. Reports feeling well, with minimal pain since stent placement. No complaints of chest pain, palpitations, SOB, dizziness, or headaches while admitted. Does endorse some sensation of dizziness described as "similar to how it feels when you're drunk" when she stands up from a seated position, or tries to go up stairs. No passing out episodes at home. When asked to describe what happened to her left kidney, the patient admits that she is unsure why "the kidney atrophied, but she found out in 2011 that that had happened". No dysuria, urinary urgency or frequency at home. Some hematuria. On review of telemetry, patient had one episode of heart block in ER while undergoing acute evaluation, but has not had any episodes of heart block since that time. Review of Systems Review of Systems: All systems reviewed & are unremarkable except as noted in HPI & below Constitutional: no fever, no chills and no malaise Respiratory: no cough and no dyspnea Cardiovascular: no chest pain, no palpitations and no edema Gastrointestinal: no abdominal pain, no constipation and no diarrhea/loose stools Genitourinary: + hematuria; no dysuria Physical Exam Constitutional: well developed and + morbidly obese; no acute distress Respiratory: normal respiratory effort, lungs clear to auscultation Cardiovascular: Rate/Rhythm: regular rate and regular rhythm Heart Sounds: + murmur (2/6 systolic murmur at RUSB) Extremities: no edema Gastrointestinal (Abdomen): normal bowel sounds, soft, nontender, no hepatosplenomegaly Skin: no rashes, warm and dry Psychiatric: A+Ox3, euthymic affect Results & Data Results & Data ([facility]) Vital Signs (Past 12 Hours) Vital Signs Temp Pulse Pulse Resp BP Pulse Ox 08/14/20 09:46 36.7 C 92 H 16 119/64 98 08/14/20 09:10 88 16 108/56 L 98 08/14/20 09:00 89 16 97/56 L 98 08/14/20 08:52 82 16 119/55 L 99 08/14/20 04:00 36.7 C 81 16 116/73 93 08/14/20 00:00 36.8 C 75 16 121/80 94 Resident Activity Tracking Resident Involvement: Resident Care Provided Care Provided: Adult Hospital Medicine (1) T2DM (type 2 diabetes mellitus) Diabetes mellitus complication status: with other specified complication Diabetes mellitus intermission coordinator insulin use: without intermission coordinator use Qualified Code(s): E11.69 - Type 2 diabetes mellitus with other specified complication (2) CKD (chronic kidney disease) stage 3, GFR 30-59 ml/min Chronic kidney disease stage 3 subtype: stage 3a (GFR 45-59) Qualified Code(s): N18.31 - Chronic kidney disease, stage 3a
--- NOTE | 2020-08-14 13:34 | Cardiology Consultation ---
Date of Consultation August 14, 2020 Assessment & Plan (1) Complete heart block, transient: -very brief episode of complete heart block seen on monitor in the emergency room. -suspect this was vagal in origin as she was experiencing severe right flank pain. -no further episodes since admission. (2) Aortic stenosis: -moderate aortic stenosis seen on echocardiogram today. (3) Encounter for pre-operative examination: -acceptable cardiac risk for urgent urologic procedure. History of Present Illness Attending Physician: Marc Segovia DO History of Present Illness Mrs. Cedillo is a 65-year-old female admitted yesterday right-sided obstructing nephrolithiasis and severe discomfort. This consultation was ordered as a preoperative evaluation. The patient is a healthy 65-year-old female admitted yesterday with severe right flank pain and hematuria. She was found to have an obstructing stone in the right ureter with resultant hydronephrosis and acute renal failure. An urgent surgical intervention is planned. While in the emergency room, the patient developed a brief episode of complete heart block while complaining of severe discomfort in her right flank. The patient does not have a cardiac history. She has never had a cardiac catheterization. She has never experienced exertional chest pain or limiting dyspnea. She further denies syncope, presyncope, PND, orthopnea, palpitations, lower extremity edema, and claudication. Currently, patient is resting comfortably in bed without complaints. Past medical and surgical history 1. Diabetes mellitus 2. Chronic renal failure 3. Solitary kidney, right 4. Nephrolithiasis 5. Depression 6. Fibromyalgia 7. 8. History of lithotripsy Social history and lives with her No tobacco Occasional alcohol Family history No early coronary artery disease Review of systems A 10 review systems was undertaken and negative except for that described above. Allergies Allergy/AdvReac Type Severity Reaction Status Date / Time No Known Allergies Allergy Verified 08/13/20 11:15 Home Medications Medication Instructions Recorded Confirmed Type aspirin 81 mg PO DAILY 06/15/18 08/13/20 History multivitamin 1 tab PO DAILY 02/12/19 08/13/20 History cyclobenzaprine 5 mg tablet 5 mg PO TID PRN #30 tab 09/30/19 08/13/20 Rx dapagliflozin 5 mg tablet 5 mg PO QAM #90 tab 05/05/20 08/13/20 Rx lorazepam 0.5 mg tablet 0.5 mg PO TID PRN #20 tab 06/24/20 08/13/20 Rx bupropion HCl 100 mg PO TID 07/27/20 08/13/20 History duloxetine 40 mg capsule,delayed 40 mg PO DAILY #30 cap 08/03/20 08/13/20 Rx release Patient History Medical History Anxiety ARF (acute renal failure) Fibromyalgia History of nephrolithiasis Renal colic on right side Routine adult health maintenance Surgical History History of delivery History of cystoscopy History of lithotripsy Family History Grandmother Heart disease Grandfather Heart disease Other T2DM (type 2 diabetes mellitus) Wilm's tumor (nephroblastoma) Denies family history of Ovarian cancer Prostate cancer Breast cancer Colorectal cancer Hypertension Social History Smoking Status: Never smoker Tobacco Type: Cigarettes Hx Alcohol Use: Yes Alcohol type: wine Hx Substance Use: No Preferred Language: Austrian Communication Ability: Effective Visual Impairment: No Limitations Chaplain Required: No Beliefs That Will Affect Care: None marital status: Current Living Situation: Spouse Current Living Situation Comment: guardian of 9 month on grandchild Other Information That Helps Us Care for You: No Feels Safe at Home: Yes Safety Concerns: Feels Safe At This Time Assistive Devices: None Physical Exam Physical Exam: In general this is an obese white female lying supine in bed without complaints. HEENT exam is negative. Neck is supple with full carotid upstrokes. No carotid bruits. Jugular is pressure is flat at 90. There is no thyromegaly. Cardiovascular exam reveals a regular rhythm with a 2/6 crescendo decrescendo systolic murmur is heard loudest at the base. S2 is audible at the apex. Lungs are clear without rales, rhonchi or wheezes. Abdomen is soft and nontender without bruits. Extremities reveal intact radial pulses bilaterally. There is trace pretibial edema. Results & Data ([facility]) Vital Signs (Past 12 Hours) Vital Signs Temp Pulse Pulse Resp BP Pulse Ox 08/14/20 10:55 37.0 C 106 H 19 125/64 92 08/14/20 09:46 36.7 C 92 H 16 119/64 98 08/14/20 09:10 88 16 108/56 L 98 08/14/20 09:00 89 16 97/56 L 98 08/14/20 08:52 82 16 119/55 L 99 08/14/20 04:00 36.7 C 81 16 116/73 93 Laboratory Results CBC notes hemoglobin of 13.6, hematocrit 42.9, white count 13.2, and platelet count [id number]. Electrolytes note a sodium of 135, potassium 4.9, chloride 104, bicarb 26, BUN 35, creatinine 3.6, and glucose of 146. Troponin I level is undetectable less than 0.015. Diagnostic Findings EKG notes sinus rhythm with a left axis deviation and old inferior myocardial infarction pattern. There is poor R-wave progression across the anterior precordium. youth nutritional monitor from the emergency room notes a brief episode of complete heart block (2 consecutive unanswered P waves). Quick look at the echocardiogram notes normal systolic function, mild LVH, and moderate aortic stenosis. PG Care Time/CCT Total # of Minutes Spent Total Time Spent with Patient: Total time spent is greater than 50% in coordination of care (as documented) at patient's floor/unit and/or counseling patient: Coding Level of Care Code 89110 Office/OBS Consult Lvl 4 Diagnoses Complete heart block, transient I44.2 Aortic stenosis I35.0 Encounter for pre-operative examination Z01.818
--- NOTE | 2020-08-14 14:32 | XCELERA ---
[id number]
--- NOTE | 2020-08-14 15:08 | Electrocardiogram Report ---
Test Reason : Blood Pressure : / mmHG Vent. Rate : 078 BPM Atrial Rate : 078 BPM P-R Int : 204 ms QRS Dur : 084 ms QT Int : 366 ms P-R-T Axes : 052 -31 050 degrees QTc Int : 417 ms Normal sinus rhythm Left axis deviation Poor R wave progression, consider anterior VT vs. lead placement vs. LVH Abnormal ECG When compared with ECG of 13-AUG-2020 11:11, Criteria for Inferior infarct are no longer Present Questionable change in initial forces of Lateral leads Confirmed by Isael Mejia ([id number]) on 08/14/2020 3:08:20 PM Referred By: REFERRED SELF Confirmed By:Isael Mejia
[2020-08-14] MEDS: TAMSULOSIN HCL 0.4 MG CAP PO SCH (21:01)
[2020-08-15] MEDS ORDERED: PIPERACILLIN/TAZOBACTAM 4.5 GM in DEXTROSE 5% 100 ML IV SCH
[2020-08-15 05:49] LABS: Estimated Average Glucose 148 mg/dl; Hemoglobin A1C 6.8 % (4.5-5.6)
--- NOTE | 2020-08-15 07:11 | Hospitalist Progress Note ---
Date of Service August 15, 2020 Assessment & Plan Admission and Anticipated Discharge Date Admission Date: August 13, 2020 Results & Data Results & Data ([facility]) Vital Signs (Past 12 Hours) Vital Signs Temp Pulse Resp BP BP Pulse Ox 08/15/20 03:11 36.8 C 78 17 127/75 98 08/14/20 22:23 36.6 C 83 18 131/76 90 08/14/20 19:20 36.9 C 82 18 113/77 90
[2020-08-15 07:56] LABS: Hematocrit (blood only) 41.3 % (37-47); Mean Corpuscular Hemoglobin 28.6 pg (25-34); Mean Corpuscular Hgb Conc 31.5 g/dL (32-36); Mean Corpuscular Volume 90.8 fL (80-100); Mean Platelet Volume 9.4 fL (7.4-10.4); Platelet Count 275 K/uL (130-400); RDW Coefficient of Variation 14.4 % (11.5-14.5); RDW Standard Deviation 48.5 fL (36.4-46.3); Red Blood Count 4.55 M/uL (4.2-5.4); White Blood Count 10.21 K/uL (4.8-10.8)
[2020-08-15 08:23] LABS: BUN Creatinine Ratio 11.8 (10-20); Calcium 8.8 mg/dl (8.5-10.1); Creatinine Clr Calc Pharmacy 28.5 ml/min; Est GFR (African American) 24.8; Est GFR (Non-African American) 21.4; Potassium 4.5 mmol/L (3.5-5.1)
[2020-08-15] MEDS ORDERED: LACTATED RINGER'S 1,000 ML IV SCH (09:00)
[2020-08-15] MEDS ORDERED: ASPIRIN 81 MG ECTAB PO SCH (09:00)
[2020-08-15] MEDS: DULoxetine HCL 20 MG CAP PO SCH (09:24)
[2020-08-15] MEDS: MULTIVITAMIN TAB PO SCH (09:24)
[2020-08-15] MEDS: buPROPion HCl 100 MG TABLET PO SCH (09:24)
[2020-08-15] MEDS: INSULIN ASPART 100 UNITS/ML 3 ML PEN SC SCH (09:27)
--- NOTE | 2020-08-15 11:02 | Cardiology Progress Note ---
Date of Service August 15, 2020 Assessment & Plan (1) Complete heart block, transient: -brief episode of complete heart block on monitor while in the emergency room. -suspect this was vagal as she was experiencing severe right flank pain concurrently. -no further episodes. (2) Aortic stenosis: -moderate in degree on current echocardiogram. (3) LVH (left ventricular hypertrophy): -mild LVH seen on current echocardiogram. Admission and Anticipated Discharge Date Admission Date: August 13, 2020 Subjective Mrs. Cedillo is resting comfortably in bed without complaints of chest pain, dyspnea, syncope, or presyncope. Physical Exam Physical Exam: In general this is an obese white female lying supine in bed without complaints. HEENT exam is negative. Neck is supple with full carotid upstrokes. No carotid bruits. No JVD. There is no thyromegaly. Cardiovascular exam reveals a regular rhythm with a 2/6 crescendo decrescendo systolic murmur is heard loudest at the base. S2 is audible at the apex. Lungs are clear without rales, rhonchi or wheezes. Abdomen is soft and nontender without bruits. Extremities reveal intact radial pulses bilaterally. There is trace pretibial edema. Results & Data ([facility]) Vital Signs (Past 12 Hours) Vital Signs Temp Pulse Resp BP BP Pulse Ox 08/15/20 07:51 36.7 C 69 16 118/76 93 08/15/20 03:11 36.8 C 78 17 127/75 98 PG Care Time/CCT Total # of Minutes Spent Total Time Spent with Patient: Total time spent is greater than 50% in coordination of care (as documented) at patient's floor/unit and/or counseling patient: Coding Level of Care Code 96500 Subseq Hosp Care Lvl 3 Diagnoses Complete heart block, transient I44.2 Aortic stenosis I35.0 LVH (left ventricular hypertrophy) I51.7
--- NOTE | 2020-08-15 11:54 | Urology Progress Note ---
Date of Service August 15, 2020 Assessment & Plan (1) Right ureteral stone: 65 yo female POD #1 s/p right ureteral stent placement with Dr. Holt. - Doing well, progressing as expected - Creatinine remains elevated at 2.30, but improved from previous - Tolerating right ureteral stent with minimal bother - Okay to d/c to home from perspective when medically stable per primary service - Recommend Tamsulosin, prn oxybutynin, prn pyridium, and prn pain medication for stent regimen - Expected clinical course reviewed, all questions answered - Will arrange outpatient follow-up for definitive stone treatment Thank you for allowing us to participate in the acute care of Ms. Cedillo. Please reconsult us with additional questions, concerns or changes in patient status. Admission and Anticipated Discharge Date Admission Date: August 13, 2020 Subjective 65 yo female POD #1 s/p right ureteral stent placement with Dr. Holt. Patient awake, alert and sitting up in bedside chair. No issues overnight. Denies pain at present. Voiding without difficulty. Notes urinary frequency. No dysuria, initially some hematuria but now clearing. Tolerating PO diet, no nausea or vomiting. LBM yesterday evening. No fever or chills. She feels anxious to go home. Chart review: Afebrile, creatinine 2.30 (previously 3.60), WBC 10.21, Hgb 13.0. VS BP 118/76, HR 69, Resp 16, T 36.7, 93% O2 RA. No additional concerns. Review of Systems Constitutional: as per Subjective / HPI Gastrointestinal: as per Subjective / HPI Genitourinary: as per Subjective / HPI Physical Exam Constitutional: well developed, well nourished and + obese; no acute distress and not ill appearing Respiratory: normal respiratory effort and able to speak in complete sentences; no respiratory distress and no labored breathing Cardiovascular: Extremities: no pedal edema Gastrointestinal (Abdomen): Inspection/Auscultation: abdomen normal to inspection; abdomen not distended Musculoskeletal: Head/Neck/Chest: normocephalic and head atraumatic Skin: no rashes, warm and dry Neurologic: moves all extremities and awake Psychiatric: A+Ox3, euthymic affect Results & Data ([facility]) Vital Signs (Past 12 Hours) Vital Signs Temp Pulse Resp BP BP Pulse Ox 08/15/20 07:51 36.7 C 69 16 118/76 93 08/15/20 03:11 36.8 C 78 17 127/75 98 PG Care Time/CCT Total # of Minutes Spent Total Time Spent with Patient: Total time spent is greater than 50% in coordination of care (as documented) at patient's floor/unit and/or counseling patient: Coding Level of Care Code 08739 Subseq Hosp Care Lvl 2 Diagnoses Right ureteral stone N20.1
--- NOTE | 2020-08-15 20:57 | Discharge Summary ---
Date of Service August 15, 2020 Admission HPI Per Admitting Provider 65-year-old female history of right solitary kidney details are unclear but noted by nephrology in the past., fibromyalgia, type 2 diabetes presenting 08/13/2020 with a complaint of 2 weeks of smoldering and now worsening right flank pain into the groin. Reports last night questionably little bit of blood in her urine. She has severe pain in her right flank rating to the right inguinal and groin area. Patient sees urology and previously has had stents placed for nephrolithiasis last cystoscopy is 06/08/2018 with stent placement and stone retrieval. CT scan performed 08/13 shows moderate right hydronephrosis secondary to obstructing 8 mm stone at the ureteropelvic junction multiple additional right renal calculi noted there is incidental notation of a 3 mm stone in the common bile duct with bile duct distention to 9 mm. LFTs on presentation are unremarkable patient was given antibiotics in the emergency department Principal Diagnosis Ureterolithiasis with hydronephrosis, and acute renal failure superimposed on chronic stage III CKD Discharge Exam In general she is awake and alert pleasant no distress. HEENT normocephalic atraumatic mucous membranes moist. Breathing unlabored no accessory muscle use good effort. Skin shows no rashes no pallor or icterus. Neuro shows no focal deficits. Discharge Data Allergies Allergy/AdvReac Type Severity Reaction Status Date / Time No Known Allergies Allergy Verified 08/13/20 11:15 Consultations 08/13/20 14:36 ED Decision to Admit Stat 08/13/20 18:19 Consult Cardiology Routine Consult Urology Routine Procedures Performed Operation Date: 08/14/20 08:00 Actual Procedures p Cystoscopy, Right Ureteral Stent Placement(Right) - Efraín Holt MD Ordered Studies 08/13/20 10:48 CT abd pelvis IV con only Stat 08/14/20 07:20 FL KUB Routine FL fluoroscopy <1hr Routine Hospital Course (1) Right nephrolithiasis: Now status post cystoscopy and stenting, stable for home, outpatient urology follow-up As it relates to her acute renal failure on stage III CKDshe is showing very good improvement, her creatinine is not yet back to baseline, but given that it was probably obstructive uropathy given that she has an atrophic left kidney and the kidney stone was on the right, I anticipate this to continue to improve. Further she is able to adequately taking good p.o. fluidwe recommend a goal of 60 to 80 ounces of water which she felt she could realistically do. We also recommended a basic metabolic panel on 08/17 which she was absolutely willing to do at her PCPs officenoting that by doing so this quickly, I would not expect it to be back to normal as far as her kidney function, but if it was stalled out or worsening, would be able to bring her back to the hospital before any sort of irreparable problems would occur. Because she was quite reasonable and willing to follow through with all of this, and she was very desperate to get home, it seemed quite reasonable to discharged home (2) Heart block AV second degree: See cardiology inputhighly likely vagal in the context of intense pain (3) Heart murmur: Echo notedaortic stenosisoutpatient follow-up (4) T2DM (type 2 diabetes mellitus): Outpatient follow-up (5) CKD (chronic kidney disease) stage 3, GFR 30-59 ml/min: See above (6) LEXUS (acute kidney injury): (7) Fibromyalgia: (8) Anxiety: Total Time Total Time Spent Total Time Spent (In Minutes): <30 Discharge Plan Discharge Items Patient Disposition: Home - Self-Care Reason For Visit: HEART BLOCK, RENAL COLIC, LEXUS WITH CKD3, CBD STONE Discharge Diagnosis: Obstructing right renal calculus Activity: Per Instructions section Non-emergency contact: Primary Care Provider Call non-emergency contact if: your symptoms worsen, your pain is worsening and you have a fever Follow-up/Referrals: Jose Sher DO [Physician] - (Office will call with appointment date and time) Paola Gregory MD [Primary Care Provider] - 08/23/20 11:30 am Diet: Carb Consistent or DM2 Ambulatory Orders: Basic Metabolic Panel (Routine) Timeframe: 20200817 Location: Determined by Patient Ordered By: Jabier Linder Attending Provider Instructions: You were admitted for acute kidney injury due to an obstructing right kidney stone. An emergency surgery was performed to remove this obstruction. You tolerated this procedure well, and your improved symptoms and labwork since the procedure show that your kidney's function is improving. It will be very important for you to maintain adequate fluid intake after returning home. You must drink at least 60-80oz of water per day, which is four to five 16oz water bottles per day. It is okay to drink more than this. If you are unable to drink this much water without nausea, vomiting, or other new symptoms, please contact your primary care physician. If you experience new or worsening symptoms, such as fever, worsening abdominal or back pain, dizziness, lightheadedness, contact your primary care physician. If you experience severe or concerning symptoms such as chest pain, shortness of breath, or severe pain, call 911 or go to the nearest emergency department immediately. You will need to have bloodwork drawn in 2-3 days, and you will need to be seen by your PCP later this week (ideally the day after you have the bloodwork done). You can have the bloodwork done at the lab of your choice. When you choose a lab, let them know you need to have a "BMP" done. Tell them to forward the results to your PCP, and see your PCP the following day to discuss the results. You will have a follow-up appointment with Urology in the coming weeks. The [facility] Urology office will call you in the coming days to schedule this appointment with you. If you have not heard from them in one week, please call their office at [phone]. We did not make any changes to your medication regimen. Please continue the medications you were taking prior to this hospital stay. Thank you for allowing us to participate in your care. Pending Studies at Discharge: No Stand-Alone Forms: My [facility] Medications and DC Order Prescriptions: Continued Farxiga 5 mg tablet 5 mg PO QAM Qty: 90 RF: 1 duloxetine 40 mg capsule,delayed release(DR/EC) 40 mg PO DAILY Qty: 30 RF: 11 cyclobenzaprine 5 mg tablet 5 mg PO TID PRN (Reason: Pain) Qty: 30 RF: 0 lorazepam 0.5 mg tablet 0.5 mg PO TID PRN (Reason: Anxiety) Qty: 20 RF: 0 multivitamin [Daily Multi-Vitamin] tablet 1 tab PO DAILY RF: 0 aspirin 81 mg Tablet,Delayed Release (Dr/Ec) 81 mg PO DAILY RF: 0 bupropion HCl 100 mg tablet 100 mg PO TID RF: 0 Discharge Orders: Discharge Order (Routine); Ordered 08/15/20 Ordered By: Yosef Benavidez/Other Patient Handouts: Managing Type 2 Diabetes, Managing Diabetes: The A1C Test Admission Data Admit Date/Time: 08/13/20 15:32 Attending Provider: Zheng Rodriguez Admit Provider: Tone Anne Primary Care Provider: Paola Gregory Other Providers: Tone Anne ; Isael Mejia ; Jose Sher ; Marc Segovia Other Interventions: Discharge Summary Assessment (RN) Last Done: 08/15/20 12:22 Coding Level of Care Code D/C Day Management <30 mins Diagnoses Right nephrolithiasis N20.0 Heart block AV second degree I44.1 Heart murmur R01.1 T2DM (type 2 diabetes mellitus) E11.69 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
== END 2020-08-15 13:22 | disposition home or self-care (01) | DRG 660 ==
LOC: ED 10:02 → SUATTDRO 15:32 → INTOOBSV 15:32 → 2S 15:32 → 3N 08-14 15:33

== ENCOUNTER 2023-03-29 10:22 | Observation (INO) ==
[2023-03-29] MEDS ORDERED: SODIUM CHLORIDE 0.9% 500 ML IV STA (11:27)
[2023-03-29] MEDS ORDERED: ONDANSETRON INJ 2 MG/ML 2 ML VIAL IV STA (11:40)
[2023-03-29] MEDS ORDERED: MoRPHine SULFATE 4 MG/ML 1 ML CARP\\VIAL IV STA (11:40)
--- NOTE | 2023-03-29 11:43 | Emergency Department Note ---
Impression & Plan Kidney stone ADMIT ED Provider Note HPI: History obtained from patient. The patient is a 68-year-old female with history of solitary kidney, presents emergency department the chief complaint of right flank pain. Patient states that she woke up this morning with some sharp pain in her right flank, patient states that this does feel similar to pain that she has had in the past with kidney stones. Patient states that she did urinate this morning but has been unable to urinate since. Patient states she had 1 episode of vomiting this morning. On arrival here to the ED the patient is otherwise hemodynamically stable, she is in no acute distress on my initial assessment. ROS: - Per HPI Differential Diagnosis: Kidney stone, pyelonephritis, musculoskeletal flank pain, small bowel obstruction, acute cholecystitis, acute diverticulitis, amongst other potential pathologies. *Outpatient medications and allergy history reviewed. *Pertinent external medical records reviewed PE: General: Alert HEENT: Normocephalic, trachea midline Eyes: Extraocular eye movement is intact, no scleral erythema Pulmonary: Clear to auscultation bilaterally, no wheezing Cardio: Regular rate and rhythm GI: Abdomen is soft to palpation : No suprapubic tenderness, moderate right flank tenderness to palpation without guarding or rigidity MSK: No evidence of trauma or malformation of the extremities, no edema Skin: No evidence of rash Neuro: Alert, no focal deficits Psychiatric: Cooperative INDEPENDENT INTERPRETATIONS: monitor technician: (As interpreted by myself): - An order was placed for continuous cardiac monitoring - Patient was noted to be in sinus rhythm with a rate of 58 EKG: (As interpreted by myself): Rate: 49 Rhythm: Sinus bradycardia Intervals: ND 208 ms, otherwise within normal limits ST changes: No ST elevation Time: 1142 Interventions provided in ED: -IV morphine, IV Zofran, IV Medical Decision Making: IV was established lab work obtained, patient was placed on monitoring analyst. Lab work shows a leukocytosis of 14.5, hemoglobin is normal, platelet count is normal, CMP does not show any evidence of acute renal failure, BUN is mildly elevated at 24. There is no evidence of transaminitis, bilirubin is normal, troponin is negative x1. EKG per my interpretation shows sinus bradycardia without any acute ischemic changes. Lipase is also noted to be within normal limits. CT imaging of the abdomen pelvis without contrast was obtained, this showed 7 mm obstructing kidney stone in the right proximal ureter. On my reassessment patient states that her pain is improved, I discussed the above findings with the on-call urology JUNIOR PROJECT COORDINATOR, Nicolle Patel, who is in agreement for consultation states the patient will be taken to the operating room for stent placement. Recommended admission to the medicine service. Case was then discussed with Dr. Peng of the medicine service and admission orders were placed. Patient is in agreement to this plan, states her last meal was last night at 5:30 PM. Patient was placed for admission in stable condition for urology consultation and definitive care. Consultants/Discussions held with other healthcare providers: -Urology, Nicolle Patel JUNIOR PROJECT COORDINATOR, Dr. Carranza (attending) -Hospitalist, Dr. Peng Disposition discussion held by myself with: -Patient Diagnosis: 1. Kidney stone, acute, right-sided, with obstruction 2. Solitary kidney, right side 3. 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 RIBERIO TO FOLLOW UP WITH AFTER KIDNEY STONE REMOVED Diabetes mellitus, type 2 Anxiety and depression Restless leg Carpal tunnel syndrome RT HAND Hyperlipidemia zetia. Complete heart block, transient (2020) Per cardio 08/15/20 consult note "brief episode of complete heart block on monitor while in the emergency room. -suspect this was vagal as she was experiencing severe right flank pain concurrently. -no further episodes." Heart block AV second degree Common bile duct stone Encounter for pre-operative examination Right nephrolithiasis CKD (chronic kidney disease) stage 3, GFR 30-59 ml/min Fibromyalgia Solitary kidney "left kidney atrophied, unknown reason. possibly due to frequent childhood UTIs" Surgical History History of anesthesia reaction CAME OUT OF ANESTHESIA AGITATED History of bilateral tubal ligation History of tooth extraction History of lithotripsy History of cystoscopy History of delivery X 1 Family History Grandmother Heart disease Grandfather Heart disease Mother Family history of diabetes mellitus Other No family history of adverse response to anesthesia T2DM (type 2 diabetes mellitus) Wilm's tumor (nephroblastoma) Denies family history of Ovarian cancer Prostate cancer Breast cancer Colorectal cancer Hypertension Social History Smoking Status: Never smoker Tobacco Type: Cigarettes Second Hand Exposure: No ( A CHILD); Do You Dip or Chew Tobacco: No; Hx Alcohol Use: Yes Alcohol type: wine and hard liquor Hx Substance Use: No Preferred Language: Georgian Communication Ability: Effective Visual Impairment: No Limitations Hearing Ability: Normal Detective Captain Required: No Beliefs That Will Affect Care: None marital status: Current Living Situation: Spouse and Family Current Living Situation Comment: Lives at home with and son How many Children do You have: 1 Feels Safe at Home: Yes Childhood Exposure to Second-Hand Smoke: Yes Diet: regular caffeine: Yes Dental Care, Regularly: No Physical Activity Frequency: Daily Seatbelt Use: always Sunscreen Use: Yes Assistive Devices: Cane Allergies Allergies Allergy/AdvReac Type Severity Reaction Status Date / Time No Known Allergies Allergy Verified 03/01/23 13:38 Home Meds Home Medications Medication Instructions Recorded Confirmed aspirin 81 mg tablet,delayed 81 mg PO QAM 06/15/18 03/01/23 release multivitamin (Daily Multi-Vitamin 1 tab PO QAM 02/12/19 03/01/23 tablet) coenzyme Q10 60 mg capsule 60 mg PO DAILY 02/07/23 03/01/23 magnesium 250 mg tablet 250 mg PO DAILY 02/07/23 03/01/23 omega-3 fatty acids-fish oil 684 1 cap PO QAM 02/07/23 03/01/23 mg-1,200 mg capsule,delayed release Previous Rx's Medication Instructions Recorded lorazepam 0.5 mg tablet 0.5 mg PO TID PRN Anxiety #20 tabs 08/06/22 semaglutide 1 mg/dose (4 mg/3 mL) 1 mg (0.75 mL) subcut .weekly #3 mL 11/06/22 subcutaneous pen injector (Ozempic) potassium citrate 15 mEq (1,620 15 meq PO BID #180 tabs 12/18/22 mg) tablet,extended release cyclobenzaprine 5 mg tablet 5 mg PO DAILY PRN Pain #90 tabs 01/07/23 dapagliflozin propanediol 10 mg 10 mg PO DAILY #90 tabs 02/11/23 tablet (Farxiga) ezetimibe 10 mg tablet 10 mg PO DAILY #90 tabs 02/14/23 sumatriptan succinate 100 mg tablet See Rx Instructions PO .COMPLEX 03/26/23 #10 tabs Results & Data (ED) Vital Signs Vital Signs - 24 hr 03/29/23 10:33 03/29/23 11:44 03/29/23 11:44 Temperature 36.8 C Temperature Source Temporal Artery Scan Pulse Rate 52 L Pulse Rate [Apical] 48 L Respiratory Rate 18 18 Respiratory Effort / Characteristics Respiratory Depth Respiratory Pattern Blood Pressure 122/70 Blood Pressure [Right Arm] 126/66 Blood Pressure Mean 87 Blood Pressure Mean [Right Arm] 86 Blood Pressure Position [Right Arm] Pulse Oximetry 98 94 Oxygen Delivery Method Room Air Room Air Room Air Sepsis New/Unexplained Change in Mental Status No Sepsis Action Taken by Nursing No Action Required 03/29/23 12:01 03/29/23 12:05 03/29/23 13:17 Temperature Temperature Source Pulse Rate 59 L Pulse Rate [Apical] 55 L 53 L Respiratory Rate 14 17 Respiratory Effort / Characteristics Respiratory Depth Respiratory Pattern Blood Pressure Blood Pressure [Right Arm] 113/65 115/72 Blood Pressure Mean Blood Pressure Mean [Right Arm] 81 86 Blood Pressure Position [Right Arm] Pulse Oximetry 95 100 Oxygen Delivery Method Room Air Sepsis New/Unexplained Change in Mental Status Sepsis Action Taken by Nursing 03/29/23 13:45 03/29/23 14:04 Temperature 36.5 C Temperature Source Oral Pulse Rate Pulse Rate [Apical] 57 L Respiratory Rate 22 Respiratory Effort / Characteristics Non-Labored Spontaneous Respiratory Depth Normal Respiratory Pattern Regular Blood Pressure Blood Pressure [Right Arm] 116/64 Blood Pressure Mean Blood Pressure Mean [Right Arm] 81 Blood Pressure Position [Right Arm] Semi-fowlers Pulse Oximetry 96 Oxygen Delivery Method Room Air Room Air Sepsis New/Unexplained Change in Mental Status Sepsis Action Taken by Nursing Laboratory Data 03/29/23 11:24 03/29/23 11:24 Lab Results 03/29/23 Range/Units 11:24 WBC 14.54 H (4.8-10.8) K/ul RBC 5.27 (4.20-5.40) M/uL Hgb 15.7 (12.0-16.0) g/dl Hct 48.5 H (37.0-47.0) % MCV 92.0 (80.0-100.0) fL MCH 29.8 (25.0-34.0) pg MCHC 32.4 (32.0-36.0) g/dL RDW Std Deviation 45.9 (36.4-46.3) fL RDW Coeff of Veronica 13.4 (11.5-14.5) % Plt Count 226 (130-400) K/uL MPV 10.5 (9.4-12.4) fL Immature Gran % (Auto) 0.4 % Neut % (Auto) 81.9 % Lymph % (Auto) 9.2 % [place] % (Auto) 6.9 % Eos % (Auto) 1.3 % Baso % (Auto) 0.3 % Neut # (Auto) 11.90 H (1.40-6.50) K/uL Lymph # (Auto) 1.34 (1.20-3.40) K/uL [place] # (Auto) 1.01 H (0.11-0.59) K/uL Eos # (Auto) 0.19 (0.00-0.50) K/uL Baso # (Auto) 0.04 (0.00-0.20) K/uL Immature Gran # (Auto) 0.06 (0.01-0.20) K/uL PT 11.0 (9.0-12.0) Seconds INR 1.0 (0.9-1.1) Sodium 138 (136-145) mmol/L Potassium 4.5 (3.5-5.1) mmol/L Chloride 101 (98-107) mmol/L Carbon Dioxide 29 (21-32) mmol/L Anion Gap 8 (3-11) BUN 24 H (6-23) mg/dl Creatinine 1.14 (0.6-1.2) mg/dl Est Cr Clr Drug Dosing 49.7 ml/min Est GFR ( Amer) 56.8 ml/min Est GFR (Non-Af Amer) 49.0 ml/min BUN/Creatinine Ratio 21.1 H (10-20) Glucose 96 (70-99(Fasting)) mg/dl Calcium 10.6 H (8.6-10.3) mg/dl Total Bilirubin 0.7 (0.2-1.0) mg/dl AST 19 (13-39) U/L ALT 16 (7-52) U/L Alkaline Phosphatase 84 (34-104) U/L Troponin I High Sens 7.9 (0-14) pg/ml Total Protein 7.7 (6.0-8.3) gm/dl Albumin 4.4 (3.4-5.0) gm/dl Globulin 3.3 (2.5-4.0) gm/dl Albumin/Globulin Ratio 1.3 (0.9-2) Lipase 29 (11-82) U/L Administered Medications Lactated Ringer's (Lr) 1,000 mls @ 15 mls/hr IV .Q24H HERRERA Stop: 04/28/23 14:14 Last Admin: 03/29/23 14:14 Dose: 15 mls/hr Documented By: CORINNE Discontinued Medications Sodium Chloride (Nss) 500 mls @ 999 mls/hr IV .Q31M STA Stop: 03/29/23 11:57 Last Infusion: 03/29/23 12:12 Dose: Infused Documented By: Admin: 03/29/23 11:39 Dose: 999 mls/hr Documented By: HEIDI Ceftriaxone Sodium (Rocephin) 2,000 mg in 50 mls @ 100 mls/hr IV NOW STA Stop: 03/29/23 13:29 Last Admin: 03/29/23 13:44 Dose: 100 mls/hr Documented By: HEIDI Morphine Sulfate (Morphine Sulfate 4 Mg/Ml 1 Ml Carp\\Vial) 4 mg IV NOW STA Stop: 03/29/23 11:41 Last Admin: 03/29/23 11:50 Dose: 4 mg Documented By: HEIDI Ondansetron HCl (Ondansetron Inj 2 Mg/Ml 2 Ml Vial) 4 mg IV NOW STA Stop: 03/29/23 11:41 Last Admin: 03/29/23 11:50 Dose: 4 mg Documented By: HEIDI Imaging Data Radiologist's Impression: Abdomen/Pelvis CT 03/29/23 11:41 CT SCAN OF THE ABDOMEN AND PELVIS WITHOUT IV CONTRAST CLINICAL HISTORY: Right flank pain. COMPARISON STUDY: Abdominal CT dated 12/27/2021. TECHNIQUE: CT scan of the abdomen and pelvis is performed from the lung bases to the proximal femora. Images are reviewed in the axial, sagittal, and coronal planes. IV contrast was not administered for this examination. A dose lowering technique was utilized adhering to the principles of ALARA. CT DOSE: 1291.16 mGy.cm FINDINGS: Lung bases: The heart is normal in size and without pericardial effusion. The lung bases are clear noting bibasilar scarring/atelectasis. Liver: The unenhanced liver is normal in size, contour, and attenuation. There is no intrahepatic biliary ductal dilatation. Gallbladder: There are calcified gallstones without CT evidence of acute cholecystitis. There is choledocholithiasis, with small stones in the distal common bile duct seen on image #107. Spleen: Normal in size and attenuation. Pancreas: The unenhanced pancreas is grossly unremarkable. Adrenal glands: Bilateral adrenal adenomas measure up to 15 mm. Kidneys: There is marked and asymmetric cortical atrophy of the left kidney with compensatory hypertrophy of the right kidney. There is a 7 mm obstructing calculus in the right proximal ureter at the level of L4 seen on image #158. This causes moderate right hydronephrosis. There is right-sided perinephric stranding. There are at least 5 additional nonobstructing right renal calculi which measure up to 5 mm. Nonobstructing left renal calculi measuring up to 3 mm. There is no hydronephrosis seen on the left. A 1.9 cm is again seen in the interpolar right kidney. Abdominal vasculature: The abdominal aorta is normal in course and caliber noting advanced atherosclerotic calcification. A 1.3 cm peripherally calcified aneurysm of the right renal artery is again seen on image #128. Bowel: There is no bowel obstruction. The appendix is well-visualized and normal. Peritoneum: There is no intraperitoneal free air or abdominal ascites. Lymphadenopathy: None. Pelvic viscera: The bladder, uterus, and adnexa are normal as visualized. Skeletal structures: The skeletal structures are osteopenic. There is mild lumbosacral spondylosis and scoliosis. No lytic or blastic lesions are seen. IMPRESSION: 1. There is a 7 mm obstructing calculus in the right proximal ureter. This causes moderate right hydronephrosis. 2. Additional nonobstructing bilateral renal calculi as above. 3. Marked and asymmetric cortical atrophy of the left kidney. 4. Cholelithiasis and choledocholithiasis without CT evidence of acute cholecystitis. Nonemergent GI follow-up is recommended. 5. 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 6. Additional findings as above. ACT 112: Negative or not required by law. Electronically signed by: Rafa Kim M.D. 03/29/2023 12:43 PM Discharge Plan Visit Data Chief Complaint: Flank Pain Stated Complaint: KIDNEY PAIN/FLANK PAIN,VOMITING,SYNCOPE ED Provider: Raymond Nava Discharge Problem: Kidney stone Discharge Instructions Interventions: ED Discharge Assessment Last Done: 03/29/23 13:45
[2023-03-29 12:02] LABS: Basophils # (auto) 0.04 K/uL (0.00-0.20); Basophils % (auto) 0.3 %; Eosinophils # (auto) 0.19 K/uL (0.00-0.50); Eosinophils % (auto) 1.3 %; Hematocrit (blood only) 48.5 % (37.0-47.0); Hemoglobin 15.7 g/dl (12.0-16.0); Immature Granulocytes # (auto) 0.06 K/uL (0.01-0.20); Immature Granulocytes % (auto) 0.4 %; Lymphocytes # (auto) 1.34 K/uL (1.20-3.40); Lymphocytes % (auto) 9.2 %; Mean Corpuscular Hemoglobin 29.8 pg (25.0-34.0); Mean Corpuscular Hgb Conc 32.4 g/dL (32.0-36.0); Mean Platelet Volume 10.5 fL (9.4-12.4); Monocytes # (auto) 1.01 K/uL (0.11-0.59); Monocytes % (auto) 6.9 %; Neutrophils % (auto) 81.9 %; Platelet Count 226 K/uL (130-400); RDW Coefficient of Variation 13.4 % (11.5-14.5); RDW Standard Deviation 45.9 fL (36.4-46.3); Red Blood Count 5.27 M/uL (4.20-5.40); White Blood Count 14.54 K/ul (4.8-10.8)
[2023-03-29 12:21] LABS: Albumin Globulin Ratio 1.3 (0.9-2); Albumin Level 4.4 gm/dl (3.4-5.0); BUN Creatinine Ratio 21.1 (10-20); Bilirubin,Total 0.7 mg/dl (0.2-1.0); Calcium 10.6 mg/dl (8.6-10.3); Creatinine Clr Calc Pharmacy 49.7 ml/min; Est GFR (African American) 56.8 ml/min; Globulin 3.3 gm/dl (2.5-4.0); Potassium 4.5 mmol/L (3.5-5.1); Total Protein 7.7 gm/dl (6.0-8.3)
[2023-03-29 12:26] LABS: Troponin I High Sensitivity 7.9 pg/ml (0-14)
--- NOTE | 2023-03-29 12:44 | CT Scan Report ---
CT SCAN OF THE ABDOMEN AND PELVIS WITHOUT IV CONTRAST CLINICAL HISTORY: Right flank pain. COMPARISON STUDY: Abdominal CT dated 12/27/2021. TECHNIQUE: CT scan of the abdomen and pelvis is performed from the lung bases to the proximal femora. Images are reviewed in the axial, sagittal, and coronal planes. IV contrast was not administered for this examination. A dose lowering technique was utilized adhering to the principles of ALARA. CT DOSE: 1291.16 mGy.cm FINDINGS: Lung bases: The heart is normal in size and without pericardial effusion. The lung bases are clear no ting bibasilar scarring/atelectasis. Liver: The unenhanced liver is normal in size, contour, and attenuation. There is no intrahepatic brayden iary ductal dilatation. Gallbladder: There are calcified gallstones without CT evidence of acute cholecystitis. There is chol edocholithiasis, with small stones in the distal common bile duct seen on image #107. Spleen: Normal in size and attenuation. Pancreas: The unenhanced pancreas is grossly unremarkable. Adrenal glands: Bilateral adrenal adenomas measure up to 15 mm. Kidneys: There is marked and asymmetric cortical atrophy of the left kidney with compensatory hypertr ophy of the right kidney. There is a 7 mm obstructing calculus in the right proximal ureter at the le jayden of L4 seen on image #158. This causes moderate right hydronephrosis. There is right-sided perinep hric stranding. There are at least 5 additional nonobstructing right renal calculi which measure up t o 5 mm. Nonobstructing left renal calculi measuring up to 3 mm. There is no hydronephrosis seen on th e left. A 1.9 cm is again seen in the interpolar right kidney. Abdominal vasculature: The abdominal aorta is normal in course and caliber noting advanced atheroscle rotic calcification. A 1.3 cm peripherally calcified aneurysm of the right renal artery is again seen on image #128. Bowel: There is no bowel obstruction. The appendix is well-visualized and normal. Peritoneum: There is no intraperitoneal free air or abdominal ascites. Lymphadenopathy: None. Pelvic viscera: The bladder, uterus, and adnexa are normal as visualized. Skeletal structures: The skeletal structures are osteopenic. There is mild lumbosacral spondylosis an d scoliosis. No lytic or blastic lesions are seen. IMPRESSION: 1. There is a 7 mm obstructing calculus in the right proximal ureter. This causes moderate right hydr onephrosis. 2. Additional nonobstructing bilateral renal calculi as above. 3. Marked and asymmetric cortical atrophy of the left kidney. 4. Cholelithiasis and choledocholithiasis without CT evidence of acute cholecystitis. Nonemergent GI follow-up is recommended. 5. 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 6. Additional findings as above. ACT 112: Negative or not required by law. Electronically signed by: Rafa Kim M.D. 03/29/2023 12:43 PM
[2023-03-29] MEDS ORDERED: cefTRIAXone SODIUM 2,000 MG/50 ML BAG IV STA (13:00)
--- NOTE | 2023-03-29 13:15 | Electrocardiogram Report ---
Test Reason : Blood Pressure : / mmHG Vent. Rate : 049 BPM Atrial Rate : 049 BPM P-R Int : 208 ms QRS Dur : 084 ms QT Int : 426 ms P-R-T Axes : 010 -32 014 degrees QTc Int : 384 ms Sinus bradycardia Left axis deviation Minimal voltage criteria for LVH, may be normal variant ( R in aVL ) Anterolateral infarct (cited on or before 07-FEB-2023) Abnormal ECG When compared with ECG of 07-FEB-2023 15:16, No significant change was found Confirmed by Isael Mejia ([id number]) on 03/29/2023 1:14:33 PM Referred By: REFERRED SELF Confirmed By:Isael Mejia
--- NOTE | 2023-03-29 13:34 | Urology Consultation ---
<Statement entered by Simon Carranza MD - 03/29/23 13:51> I have discussed Ms. Cedillo' case with DEBBY Malhotra and agree with the above documentation. She has a right obstructing stone and a functionally solitary right kidney. We will plan for cystoscopy, right retrograde pyelogram and right ureteral stent placement to allow maximal drainage of the kidney. -Simon Carranza MD. Date of Consultation March 29, 2023 Assessment & Plan (1) Calculus of proximal right ureter: 68 yo functionally mononephric female who presented to the emergency department today with right flank pain and found to have an obstructing right proximal ureteral stone. Patient afebrile and hemodynamically stable Labs reviewedcreatinine 1.14, WBC 14.54, hemoglobin 15.7 CT abdomen and pelvis independently reviewed and discussed with patientnotable for a 7 mm obstructing right proximal ureteral stone with hydronephrosis, additional bilateral nephrolithiasis; marked atrophy of left kidney Given patient is functionally mononephric with an obstructing stone of her functional kidney, recommend right ureteral stent placement urgently Patient is agreeable to proceed with surgical intervention Risks and benefits of procedure to be reviewed with patient by Dr. Carranza Patient was given 2 g of ceftriaxone in the emergency department Keep NPO for procedure Continue supportive care and medical management per hospital service History of Present Illness History of Present Illness 68-year-old female functionally mononephric with multiple comorbidities presented to the emergency department with an obstructing right ureteral stone. Right flank pain started this morning with associated nausea and vomiting. She presented to the emergency department for further evaluation. CT imaging reviewed and notable for a 7 mm obstructing calculus in the right proximal ureter causing moderate right hydronephrosis, additional nonobstructing bilateral renal calculi noted. On arrival, she is afebrile and hemodynamically stable. Labs showed creatinine 1.14, WBC 14.54, hemoglobin 15.7. No urine sample at this time as she has not voided. ED course included IV fluids, morphine, ondansetron, ceftriaxone. Patient seen and examined in the emergency department. at bedside. She is awake, and resting in litter. She reports pain is controlled after dose of morphine. Noted hematuria with void yesterday evening. Has not voided in the emergency department. No nausea or vomiting at present. No fever or chills. Last ate and drank yesterday evening. Allergies Allergy/AdvReac Type Severity Reaction Status Date / Time No Known Allergies Allergy Verified 03/01/23 13:38 Home Medications Medication Instructions Recorded Confirmed Type aspirin 81 mg tablet,delayed 81 mg PO QAM 06/15/18 03/01/23 History release multivitamin (Daily Multi-Vitamin 1 tab PO QAM 02/12/19 03/01/23 History tablet) lorazepam 0.5 mg tablet 0.5 mg PO TID PRN Anxiety #20 tabs 08/06/22 03/01/23 Rx semaglutide 1 mg/dose (4 mg/3 mL) 1 mg (0.75 mL) subcut .weekly #3 mL 11/06/22 03/01/23 Rx subcutaneous pen injector (Ozempic) potassium citrate 15 mEq (1,620 15 meq PO BID #180 tabs 12/18/22 03/01/23 Rx mg) tablet,extended release cyclobenzaprine 5 mg tablet 5 mg PO DAILY PRN Pain #90 tabs 01/07/23 03/01/23 Rx coenzyme Q10 60 mg capsule 60 mg PO DAILY 02/07/23 03/01/23 History magnesium 250 mg tablet 250 mg PO DAILY 02/07/23 03/01/23 History omega-3 fatty acids-fish oil 684 1 cap PO QAM 02/07/23 03/01/23 History mg-1,200 mg capsule,delayed release dapagliflozin propanediol 10 mg 10 mg PO DAILY #90 tabs 02/11/23 03/01/23 Rx tablet (Farxiga) ezetimibe 10 mg tablet 10 mg PO DAILY #90 tabs 02/14/23 03/01/23 Rx sumatriptan succinate 100 mg tablet See Rx Instructions PO .COMPLEX 03/26/23 Rx #10 tabs Patient History Medical History Family history of stomach cancer Moderate aortic stenosis PAULO= 1.2 cm 2022 Depressive disorder Essential hypertension Lumbago Parathyroid disorder Aneurysm artery, 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 RIBEIRO TO FOLLOW UP WITH AFTER KIDNEY STONE REMOVED Diabetes mellitus, type 2 Anxiety and depression Restless leg Carpal tunnel syndrome RT HAND Hyperlipidemia zetia. Complete heart block, transient (2020) Per cardio 08/15/20 consult note "brief episode of complete heart block on monitor while in the emergency room. -suspect this was vagal as she was experiencing severe right flank pain concurrently. -no further episodes." Heart block AV second degree Common bile duct stone Encounter for pre-operative examination Right nephrolithiasis T2DM (type 2 diabetes mellitus) CKD (chronic kidney disease) stage 3, GFR 30-59 ml/min Fibromyalgia Solitary kidney "left kidney atrophied, unknown reason. possibly due to frequent childhood UTIs" Surgical History History of anesthesia reaction CAME OUT OF ANESTHESIA AGITATED History of bilateral tubal ligation History of tooth extraction History of lithotripsy History of cystoscopy History of delivery X 1 Family History Grandmother Heart disease Grandfather Heart disease Mother Family history of diabetes mellitus Other No family history of adverse response to anesthesia T2DM (type 2 diabetes mellitus) Wilm's tumor (nephroblastoma) Denies family history of Ovarian cancer Prostate cancer Breast cancer Colorectal cancer Hypertension Social History Smoking Status: Never smoker Tobacco Type: Cigarettes Second Hand Exposure: No ( A CHILD); Do You Dip or Chew Tobacco: No; Hx Alcohol Use: Yes Alcohol type: wine and hard liquor Hx Substance Use: No Preferred Language: Yakut Communication Ability: Effective Visual Impairment: No Limitations Hearing Ability: Normal 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 Beliefs That Will Affect Care: None marital status: Current Living Situation: Spouse and Family Current Living Situation Comment: Lives at home with and son How many Children do You have: 1 Feels Safe at Home: Yes Childhood Exposure to Second-Hand Smoke: Yes Diet: regular caffeine: Yes Dental Care, Regularly: No Physical Activity Frequency: Daily Seatbelt Use: always Sunscreen Use: Yes Assistive Devices: Cane Review of Systems Review of Systems: All systems reviewed & are unremarkable except as noted in HPI & below Physical Exam Physical Exam: General: well-appearing, no acute distress HEENT: Normocephalic, mucous membranes moist Pulmonary: Nonlabored respirations Abdomen: Nondistended Extremities: Moves all 4 spontaneously Neuro: No gross deficits Psych: alert and oriented, normal mood Skin: Warm, dry, no rashes noted : no CVA tenderness Results & Data Vital Signs (Past 12 Hours) Vital Signs Temp Pulse Pulse Resp BP BP Pulse Ox 03/29/23 13:17 53 L 17 115/72 100 03/29/23 12:05 59 L 03/29/23 12:01 55 L 14 113/65 95 03/29/23 11:44 03/29/23 11:44 48 L 18 126/66 94 03/29/23 10:33 36.8 C 52 L 18 122/70 98 O2 Del Method 03/29/23 13:17 Room Air 03/29/23 12:05 03/29/23 12:01 03/29/23 11:44 Room Air 03/29/23 11:44 Room Air 03/29/23 10:33 Room Air PG Care Time/CCT Total # of Minutes Spent Total Time Spent with Patient: Total time spent is greater than 50% in coordination of care (as documented) at patient's floor/unit and/or counseling patient: Coding Level of Care Code 12971 IN/OBS CONSULT LVL 4,60M Diagnoses Calculus of proximal right ureter N20.1
[2023-03-29] MEDS ORDERED: PROPOFOL IV EMULSION 10 MG/ML 20 ML VIAL IV ONE ×2 (13:49→13:54)
[2023-03-29] MEDS ORDERED: MIDAZOLAM HCL 1 MG/ML 2ML VIAL ONE (13:50)
[2023-03-29] MEDS ORDERED: fentaNYL citrate PF 100 MCG/2 ML VIAL ONE (13:50)
--- NOTE | 2023-03-29 13:57 | History & Physical Report ---
Date of Service March 29, 2023 Assessment & Plan (1) Calculus of proximal right ureter: Plan: Obstructing 7 mm stone of right ureter, patient has an atrophic left kidney Taking emergently to the OR for stent placement, urology consulted Minimal pain after 1 dose of morphine. We will continue Tylenol for pain control at this time. Can add additional hydromorphone scaled if needed Zofran for nausea Patient received Rocephin 2 g for prophylaxis, UA not able to to be obtained due to anuria. We will continue for now No LEXUS, trend BMP daily. (2) T2DM (type 2 diabetes mellitus): Plan: Ozempic and Farxiga held Sliding scale SSI while admitted N.p.o. pending surgical evaluation Goal BSG 873012, advance to type II DM diet after OR if doing (3) Solitary kidney: (4) Anxiety: Plan: Continue home Ativan Plan DVT prophylaxis: Heparin Disposition: Medical surgical CODE STATUS: Full code Diet: N.p.o., advance to type II DM, low-sodium post History of Present Illness Primary Care Provider: Paola Gregory MD Bindu is a 68-year-old male female with a history of kidney stones, solitary functional kidney with atrophic left kidney, DM2 who presents with an obstructive kidney stone. She is taken emergently for stent placement and urologic management due to her solitary kidney; due to her obstruction she has been an uric. She denies fever, chills, sweats, shortness of breath, chest pain, difficulty breathing She endorses right flank pain starting this morning with an episode of nausea and nonbilious vomiting. She is found to have a 7 mm obstructing right proximal ureteral stone. Creatinine is at baseline 1.14 and she does not have an LEXUS. She reports that her pain is almost completely resolved after single dose of morphine. She denies dysuria, had a small amount of blood in her urine yesterday. No voiding since yesterday evening Medical History: Reviewed Medications: Reviewed Surgical History: Reviewed Family history: Reviewed Allergies: Reviewed Social History: no tobacco, rare etoh Code Status: Full Allergies Allergy/AdvReac Type Severity Reaction Status Date / Time No Known Allergies Allergy Verified 03/01/23 13:38 Home Medications Medication Instructions Recorded Confirmed Type aspirin 81 mg tablet,delayed 81 mg PO QAM 06/15/18 03/01/23 History release multivitamin (Daily Multi-Vitamin 1 tab PO QAM 02/12/19 03/01/23 History tablet) lorazepam 0.5 mg tablet 0.5 mg PO TID PRN Anxiety #20 tabs 08/06/22 03/01/23 Rx semaglutide 1 mg/dose (4 mg/3 mL) 1 mg (0.75 mL) subcut .weekly #3 mL 11/06/22 03/01/23 Rx subcutaneous pen injector (Ozempic) potassium citrate 15 mEq (1,620 15 meq PO BID #180 tabs 12/18/22 03/01/23 Rx mg) tablet,extended release cyclobenzaprine 5 mg tablet 5 mg PO DAILY PRN Pain #90 tabs 01/07/23 03/01/23 Rx coenzyme Q10 60 mg capsule 60 mg PO DAILY 02/07/23 03/01/23 History magnesium 250 mg tablet 250 mg PO DAILY 02/07/23 03/01/23 History omega-3 fatty acids-fish oil 684 1 cap PO QAM 02/07/23 03/01/23 History mg-1,200 mg capsule,delayed release dapagliflozin propanediol 10 mg 10 mg PO DAILY #90 tabs 02/11/23 03/01/23 Rx tablet (Farxiga) ezetimibe 10 mg tablet 10 mg PO DAILY #90 tabs 02/14/23 03/01/23 Rx sumatriptan succinate 100 mg tablet See Rx Instructions PO .COMPLEX 03/26/23 Rx #10 tabs Past Med/Surg History Medical History (Updated 03/29/23 @ 13:55 by Eder Peng MD) T2DM (type 2 diabetes mellitus) Family history of stomach cancer Moderate aortic stenosis PAULO= 1.2 cm 2022 Depressive disorder Essential hypertension Lumbago Parathyroid disorder Aneurysm artery, 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 RIBEIRO TO FOLLOW UP WITH AFTER KIDNEY STONE REMOVED Diabetes mellitus, type 2 Anxiety and depression Restless leg Carpal tunnel syndrome RT HAND Hyperlipidemia zetia. Complete heart block, transient (2020) Per cardio 08/15/20 consult note "brief episode of complete heart block on monitor while in the emergency room. -suspect this was vagal as she was experiencing severe right flank pain concurrently. -no further episodes." Heart block AV second degree Common bile duct stone Encounter for pre-operative examination Right nephrolithiasis CKD (chronic kidney disease) stage 3, GFR 30-59 ml/min Fibromyalgia Solitary kidney "left kidney atrophied, unknown reason. possibly due to frequent childhood UTIs" Surgical History History of anesthesia reaction CAME OUT OF ANESTHESIA AGITATED History of bilateral tubal ligation History of tooth extraction History of lithotripsy History of cystoscopy History of delivery X 1 Family History Grandmother Heart disease Grandfather Heart disease Mother Family history of diabetes mellitus Other No family history of adverse response to anesthesia T2DM (type 2 diabetes mellitus) Wilm's tumor (nephroblastoma) Denies family history of Ovarian cancer Prostate cancer Breast cancer Colorectal cancer Hypertension Social History Smoking Status: Never smoker Tobacco Type: Cigarettes Second Hand Exposure: No ( A CHILD); Do You Dip or Chew Tobacco: No; Hx Alcohol Use: Yes Alcohol type: wine and hard liquor Hx Substance Use: No Preferred Language: Armenian Communication Ability: Effective Visual Impairment: No Limitations Hearing Ability: Normal Venetian Blind Tape Cutter Required: No Beliefs That Will Affect Care: None marital status: Current Living Situation: Spouse and Family Current Living Situation Comment: Lives at home with and son How many Children do You have: 1 Feels Safe at Home: Yes Childhood Exposure to Second-Hand Smoke: Yes Diet: regular caffeine: Yes Dental Care, Regularly: No Physical Activity Frequency: Daily Seatbelt Use: always Sunscreen Use: Yes Assistive Devices: Cane Physical Exam Physical Exam: General: A&Ox3. NAD. Cooperative. HEENT: Atraumatic, normocephalic. Pupils equal and reactive to light, vision and hearing grossly Pulm: CTAB A&P. -wheezes, -rales, -rhonchi. Symmetrical chest rise. No increased work of breathing. No respiratory distress. Cardiac: RRR, -mrg. Radial pulses intact and symmetrical. Abdominal: Nontender, nondistended, soft. BS present. Right CVA tender Extremities: Warm, dry Results & Data Results & Data Vital Signs (Past 12 Hours) Vital Signs Temp Pulse Pulse Resp BP BP Pulse Ox 03/29/23 13:45 03/29/23 13:17 53 L 17 115/72 100 03/29/23 12:05 59 L 03/29/23 12:01 55 L 14 113/65 95 03/29/23 11:44 03/29/23 11:44 48 L 18 126/66 94 03/29/23 10:33 36.8 C 52 L 18 122/70 98 O2 Del Method 03/29/23 13:45 Room Air 03/29/23 13:17 Room Air 03/29/23 12:05 03/29/23 12:01 03/29/23 11:44 Room Air 03/29/23 11:44 Room Air 03/29/23 10:33 Room Air PG Care Time/CCT Total # of Minutes Spent Total Time Spent with Patient: Total time spent is greater than 50% in coordination of care (as documented) at patient's floor/unit and/or counseling patient: Coding Level of Care Code 51098 INT INP/OBS CARE 2/55MIN Diagnoses Calculus of proximal right ureter N20.1 Type 2 diabetes mellitus with other diabetic kidney complication, without long- term current use of insulin E11.69 Diabetes mellitus manager terminal insulin use: without manager terminal use Diabetes mellitus complication status: with other specified complication Solitary kidney Q60.0 Anxiety F41.9 (2) T2DM (type 2 diabetes mellitus) Diabetes mellitus manager terminal insulin use: without correction use Diabetes mellitus complication status: with other specified complication Qualified Code(s): E11.69 - Type 2 diabetes mellitus with other specified complication
[2023-03-29] MEDS ORDERED: HYDROmorphone INJ 0.5 MG/0.5 ML SYR IV PRN (13:58)
--- NOTE | 2023-03-29 14:12 | Anesthesiology Consultation ---
Date of Service March 29, 2023 Assessment & Plan Chart Review Chart Review: Acceptable Risk for Surgery Consults Requested none History Surgery Operation Date: 03/29/23 11:25 Proposed Procedures p Cystoscopy, Retrograde Pyelogram, Right Ureteral Stent Placement(Right) - Simon Carranza MD Height/Weight Height: 5 ft 4 in Weight: 87.1 kg Allergies Allergy/AdvReac Type Severity Reaction Status Date / Time No Known Allergies Allergy Verified 03/01/23 13:38 Medications Home Medications Medication Instructions Recorded Confirmed Last Taken aspirin 81 mg tablet,delayed 81 mg PO QAM 06/15/18 03/01/23 02/02/23 release multivitamin (Daily Multi-Vitamin 1 tab PO QAM 02/12/19 03/01/23 02/02/23 tablet) lorazepam 0.5 mg tablet 0.5 mg PO TID PRN Anxiety #20 tabs 08/06/22 03/01/23 02/02/23 semaglutide 1 mg/dose (4 mg/3 mL) 1 mg (0.75 mL) subcut .weekly #3 mL 11/06/22 03/01/23 02/03/23 subcutaneous pen injector (Ozempic) potassium citrate 15 mEq (1,620 15 meq PO BID #180 tabs 12/18/22 03/01/23 02/02/23 mg) tablet,extended release cyclobenzaprine 5 mg tablet 5 mg PO DAILY PRN Pain #90 tabs 01/07/23 03/01/23 02/02/23 coenzyme Q10 60 mg capsule 60 mg PO DAILY 02/07/23 03/01/23 Unknown magnesium 250 mg tablet 250 mg PO DAILY 02/07/23 03/01/23 02/02/23 omega-3 fatty acids-fish oil 684 1 cap PO QAM 02/07/23 03/01/23 02/02/23 mg-1,200 mg capsule,delayed release dapagliflozin propanediol 10 mg 10 mg PO DAILY #90 tabs 02/11/23 03/01/23 Unknown tablet (Farxiga) ezetimibe 10 mg tablet 10 mg PO DAILY #90 tabs 02/14/23 03/01/23 Unknown sumatriptan succinate 100 mg tablet See Rx Instructions PO .COMPLEX 03/26/23 Unknown #10 tabs NPO Date Last Intake of Fluids: 03/28/23 Time Last Intake of Fluids: 17:30 Date Last Intake of Solids: 03/28/23 Time Last Intake of Solids: 17:30 Past Medical History Medical History (Updated 03/29/23 @ 13:55 by Eder Peng MD) T2DM (type 2 diabetes mellitus) Family history of stomach cancer Moderate aortic stenosis PAULO= 1.2 cm 2022 Depressive disorder Essential hypertension Lumbago Parathyroid disorder Aneurysm artery, 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 RIBEIRO TO FOLLOW UP WITH AFTER KIDNEY STONE REMOVED Diabetes mellitus, type 2 Anxiety and depression Restless leg Carpal tunnel syndrome RT HAND Hyperlipidemia zetia. Complete heart block, transient (2020) Per cardio 08/15/20 consult note "brief episode of complete heart block on monitor while in the emergency room. -suspect this was vagal as she was experiencing severe right flank pain concurrently. -no further episodes." Heart block AV second degree Common bile duct stone Encounter for pre-operative examination Right nephrolithiasis CKD (chronic kidney disease) stage 3, GFR 30-59 ml/min Fibromyalgia Solitary kidney "left kidney atrophied, unknown reason. possibly due to frequent childhood UTIs" Past Family History Family History Grandmother Heart disease Grandfather Heart disease Mother Family history of diabetes mellitus Other No family history of adverse response to anesthesia T2DM (type 2 diabetes mellitus) Wilm's tumor (nephroblastoma) Denies family history of Ovarian cancer Prostate cancer Breast cancer Colorectal cancer Hypertension Past Surgical History Surgical History History of anesthesia reaction CAME OUT OF ANESTHESIA AGITATED History of bilateral tubal ligation History of tooth extraction History of lithotripsy History of cystoscopy History of delivery X 1 Social History Smoking Status: Never smoker Do You Dip or Chew Tobacco: No Hx Alcohol Use: Yes Alcohol type: wine and hard liquor alcohol intake frequency: holidays/special occasions only Hx Substance Use: No substance use type: does not use Physical Exam Vital Signs Last Vital Signs Temp 36.5 C 03/29/23 14:04 Pulse 57 L 03/29/23 14:04 Resp 22 03/29/23 14:04 BP 116/64 03/29/23 14:04 Pulse Ox 96 11/10/23 14:04 O2 Del Method Room Air 03/29/23 14:04 Testing Laboratory Results 03/29/23 11:24 03/29/23 11:24 PT 11.0 Seconds (9.0-12.0) 03/29/23 11:24 INR 1.0 (0.9-1.1) 03/29/23 11:24
[2023-03-29] MEDS ORDERED: ONDANSETRON INJ 2 MG/ML 2 ML VIAL IV PRN ×2 (14:13→16:36)
[2023-03-29] MEDS ORDERED: HYDROmorphone INJ 2 MG/ML SYR/VIAL IV PRN (14:13)
[2023-03-29] MEDS ORDERED: PROMETHAZINE HCL 12.5 MG in SODIUM CHLORIDE 0.9% 50 ML IV PRN (14:13)
[2023-03-29] MEDS ORDERED: ATROPINE SULFATE 0.1 MG/ML 10ML SYR IV PRN (14:13)
[2023-03-29] MEDS ORDERED: ePHEDrine sulfate 50 MG/ML AMP IV PRN (14:13)
[2023-03-29] MEDS ORDERED: fentaNYL citrate PF 100 MCG/2 ML VIAL IV PRN (14:13)
[2023-03-29] MEDS ORDERED: LACTATED RINGER'S 1,000 ML IV SCH (14:15)
[2023-03-29] MEDS ORDERED: ONDANSETRON INJ 2 MG/ML 2 ML VIAL ONE (14:27)
--- NOTE | 2023-03-29 14:41 | Operative Report ---
PG Post Operative Report Pre & Post Diagnosis Operation Date: 03/29/23 11:25 Pre-Op Diagnosis: Right ureteral stone Post-Op Diagnosis: Right ureteral stone I identified the patient and participated in the time-out.: Yes Procedure Operation Date: 03/29/23 11:25 Actual Procedures p Cystoscopy, Retrograde Pyelogram, Right Ureteral Stent Placement(Right) - Simon Carranza MD Surgeon Simon Carranza MD Finish Production Manager None Estimated Blood Loss 0 Findings Consistent with Post-Op Diagnosis Specimens None Drains 6 Libyan by 24 cm double-J ureteral stent in the right ureter Anesthesia Type MAC Complications none Disposition Accompanied Patient To Recovery: Yes Disposition: Recovery Room Indications This is a 68-year-old female with a functionally solitary right kidney who presented to the emergency department with a right ureteral stone and no urine output. She is being brought to the OR for right ureteral stent placement to allow drainage of the kidney. Description of Procedure The patient was identified in the holding area and informed consent was confirmed. She was marked on the right side, then was taken to the operating room where anesthesia was initiated. She was placed in the dorsal lithotomy position with all pressure points appropriately padded. She was prepped and draped in the usual sterile fashion and a preoperative timeout was performed. A well-lubricated cystoscope was inserted per urethra and panendoscopy was performed. The urethra was normal in appearance. The bladder was of normal size with ureteral orifices in orthotopic position. The right ureteral orifice was identified and cannulated with a 5 Libyan open- ended catheter. A retrograde pyelogram was performed demonstrating the distal ureter was normal in course and caliber. There was an abrupt cessation of contrast at the level of the stone. A sensor wire was advanced to the level of the kidney under fluoroscopic guidance. Over the wire, a 6 Libyan x 24 centimeter double-J ureteral stent was advanced. When the wire was removed, the proximal curl was visualized in the kidney with x-ray, and the distal curl visualized in the bladder with the cystoscope. There was brisk drainage of urine through the stent. At this point the bladder was drained and all instrumentation was removed. The patient was then awakened from anesthesia and was brought to the PACU in stable condition. I attest to the content of the Intraoperative Record and any orders documented therein. Any exceptions are noted below.
[2023-03-29] MEDS ORDERED: DIATRIZOATE MEGLUMINE 30% 100ML VIAL INSTIL ONE (14:50)
--- NOTE | 2023-03-29 15:04 | Fluoroscopy Report ---
INTRAOPERATIVE RADIOGRAPH CLINICAL HISTORY: Right ureteral stent placement. Fluoro time: 8 seconds Ka,r: 2.55 mGy FINDINGS: A single spot fluoroscopic image of the right upper quadrant is correlated with abdominal C T dated 03/29/2023. The image shows the proximal end of a right ureteral stent in appropriate positio n. No calcifications project along the proximal stent. Nonobstructing calculi are suggested in the ri ght kidney. IMPRESSION: Intraoperative image from a right ureteral stent placement procedure as above. Electronically signed by: Rafa Kim M.D. 03/29/2023 3:03 PM
--- NOTE | 2023-03-29 15:32 | Anesthesiology Progress Note ---
Date of Service March 29, 2023 Anesthesia Post Procedure Vital Signs Vital Signs: Temp Pulse Pulse Resp BP BP Pulse Ox 03/29/23 15:15 51 L 18 93/55 L 93 03/29/23 15:05 36.6 C 52 L 14 94/56 L 95 03/29/23 14:55 68 19 98/65 L 95 03/29/23 14:47 36.3 C L 61 18 90/51 L 98 03/29/23 14:04 36.5 C 57 L 22 116/64 96 03/29/23 13:45 03/29/23 13:17 53 L 17 115/72 100 03/29/23 12:05 59 L 03/29/23 12:01 55 L 14 113/65 95 03/29/23 11:44 03/29/23 11:44 48 L 18 126/66 94 03/29/23 10:33 36.8 C 52 L 18 122/70 98 O2 Del Method O2 Flow Rate 03/29/23 15:15 Room Air 03/29/23 15:05 Room Air 03/29/23 14:55 Room Air 03/29/23 14:47 Oxymask 6 03/29/23 14:04 Room Air 03/29/23 13:45 Room Air 03/29/23 13:17 Room Air 03/29/23 12:05 03/29/23 12:01 03/29/23 11:44 Room Air 03/29/23 11:44 Room Air 03/29/23 10:33 Room Air Pain Intensity Right Flank: Pain Intensity: 9 Transfer of Care Handoff Completed per policy Notes Mental Status: alert / awake / arousable Patient Amnestic to Procedure: Yes Nausea / Vomiting: adequately controlled Pain: adequately controlled Airway Patency, RR, SpO2: stable & adequate BP & HR: stable & adequate Hydration State: stable & adequate Anesthetic Complications: no major complications apparent and Pt Satisfied with anesthetic care
[2023-03-29] MEDS ORDERED: CARBOHYDRATES FOR HYPOGLYCEMIA PO PRN (16:36)
[2023-03-29] MEDS ORDERED: GLUCOSE 10 TAB/TUBE PO PRN (16:36)
[2023-03-29] MEDS ORDERED: GLUCAGON FOR INJ 1 MG VIAL SQ PRN (16:36)
[2023-03-29] MEDS ORDERED: DEXTROSE 50% 50 ML SYRINGE IV PRN (16:36)
[2023-03-29] MEDS ORDERED: LORazepam 0.5 MG TAB PO PRN (16:36)
[2023-03-29] MEDS ORDERED: ACETAMINOPHEN 325 MG TAB PO PRN (16:36)
[2023-03-29] MEDS ORDERED: GLUCOSE 40% GEL 15 GM TUBE PO PRN (16:36)
[2023-03-29] MEDS: INSULIN ASPART PER UNIT CHARGE SC SCH ×2 (17:27→20:55)
[2023-03-29 17:48] LABS: Appearance Urine Turbid (Clear); Bacteria Urine Automated Negative (Negative); Bilirubin Urine Negative (Negative); Blood Urine 3+ (Negative); Color Urine Yellow; Epithelial Cell Urine Auto 20-30 /lpf (0-5); Glucose Urine UA 3+ (Negative); Ketones Urine Negative (Negative); Leukocyte Esterase Urine 2+ (Negative); Nitrite Urine Negative (Negative); Protein Urine 1+ (Negative); Specific Gravity Urine 1.011 (1.000-1.030); Urobilinogen Urine Negative (Negative); WBC Urine Automated >30 /hpf (0-5)
[2023-03-29 18:02] LABS: RBC Urine Automated >30 /hpf (0-4)
[2023-03-29] MEDS: POTASSIUM CHLORIDE 10 MEQ TABCR PO SCH (20:25)
[2023-03-30 07:47] VITALS: BP 96/59; RESP 16; TEMP 98.8; O2SAT 99
--- NOTE | 2023-03-30 08:07 | Urology Progress Note ---
Date of Service March 30, 2023 Assessment & Plan (1) Kidney stone: Plan: Recovering appropriately s/p stent placement on 03/29/2023. Kidney should be draining adequately with ureteral stent in place. If renal function is good and there are no markers of infection, would be reasonable to discharge home. Urology will coordinate outpatient follow-up to discuss definitive stone removal. Urology will sign off for now. Please call with any questions or concerns. Admission and Anticipated Discharge Date Admission Date: March 29, 2023 Subjective Feeling well this morning Denies any fevers or chills Denies any pain from the stent Reports a sense of increased urinary urgency/frequency Physical Exam Physical Exam: Well-appearing, NAD Results & Data Vital Signs (Past 12 Hours) Vital Signs Temp Pulse Resp BP Pulse Ox Pulse Ox O2 Del Method 03/30/23 07:46 37.1 C 58 L 16 96/59 L 99 Room Air 03/29/23 20:25 96 03/29/23 20:25 Room Air 03/29/23 20:13 36.7 C 52 L 14 105/62 96 Room Air O2 Del Method 03/30/23 07:46 03/29/23 20:25 Room Air 03/29/23 20:25 03/29/23 20:13 PG Care Time/CCT Total # of Minutes Spent Total Time Spent with Patient: Total time spent is greater than 50% in coordination of care (as documented) at patient's floor/unit and/or counseling patient: Coding Level of Care Code 82286 SUB INP/OBS CARE 1/25MIN Diagnoses Kidney stone N20.0
[2023-03-30] MEDS: POTASSIUM CHLORIDE 10 MEQ TABCR PO SCH (08:42)
[2023-03-30] MEDS: INSULIN ASPART PER UNIT CHARGE SC SCH ×2 (08:42→12:41)
[2023-03-30] MEDS ORDERED: ASPIRIN 81 MG ECTAB PO SCH (09:00)
[2023-03-30] MEDS ORDERED: MAGNESIUM OXIDE 400 MG TAB PO SCH (09:00)
[2023-03-30] MEDS ORDERED: EZETIMIBE 10 MG TAB PO SCH (09:00)
[2023-03-30 12:51] LABS: Basophils # (auto) 0.03 K/uL (0.00-0.20); Basophils % (auto) 0.3 %; Eosinophils # (auto) 0.27 K/uL (0.00-0.50); Eosinophils % (auto) 2.9 %; Hemoglobin 14.2 g/dl (12.0-16.0); Immature Granulocytes # (auto) 0.03 K/uL (0.01-0.20); Immature Granulocytes % (auto) 0.3 %; Lymphocytes # (auto) 2.01 K/uL (1.20-3.40); Lymphocytes % (auto) 21.6 %; Mean Corpuscular Hgb Conc 31.6 g/dL (32.0-36.0); Mean Platelet Volume 10.1 fL (9.4-12.4); Monocytes # (auto) 0.83 K/uL (0.11-0.59); Monocytes % (auto) 8.9 %; Neutrophils # (auto) 6.14 K/uL (1.40-6.50); Platelet Count 213 K/uL (130-400); RDW Coefficient of Variation 13.5 % (11.5-14.5); RDW Standard Deviation 46.1 fL (36.4-46.3); Red Blood Count 4.89 M/uL (4.20-5.40); White Blood Count 9.31 K/ul (4.8-10.8)
[2023-03-30 12:58] LABS: BUN Creatinine Ratio 19.1 (10-20); Creatinine Clr Calc Pharmacy 43.3 ml/min; Est GFR (Non-African American) 41.4 ml/min; Potassium 3.9 mmol/L (3.5-5.1)
[2023-03-30] MEDS ORDERED: cefTRIAXone SODIUM 2,000 MG in DEXTROSE 5 % MINI-B 50 ML IV SCH (14:00)
--- NOTE | 2023-03-30 14:47 | Discharge Summary ---
Discharge Summary Date of Service March 30, 2023 Notes For Next Care Provider Bindu left prior to being examined on day of discharge. Myself and my attending, Dr. Stein, were not able to go over discharge instructions with her. She was sent in Keflex to continue abx course she was receiving her to prevent infection as she did have an elevated WBC on admission. Since she left without being seen, we were unable to discuss with her the incidential finding on her CT - Gallbladder: There are calcified gallstones without CT evidence of acute cholecystitis. There is choledocholithiasis, with small stones in the distal common bile duct seen on image #107. Would recommend outpatient GI follow up for this with ERCP. 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 She is taken emergently for stent placement and urologic management due to her solitary kidney; due to her obstruction she has been an uric. She denies fever, chills, sweats, shortness of breath, chest pain, difficulty breathing She endorses right flank pain starting this morning with an episode of nausea and nonbilious vomiting. She is found to have a 7 mm obstructing right proximal ureteral stone. Creatinine is at baseline 1.14 and she does not have an LEXUS. She reports that her pain is almost completely resolved after single dose of morphine. She denies dysuria, had a small amount of blood in her urine yesterday. No voiding since yesterday evening Medical History: Reviewed Medications: Reviewed Surgical History: Reviewed Family history: Reviewed Allergies: Reviewed Social History: no tobacco, rare etoh Code Status: Full Principal Dx & Hospital Course #1 = Principal Diagnosis (1) Calculus of proximal right ureter: Obstructing 7 mm stone of right ureter, patient has an atrophic left kidney Taking emergently to the OR for stent placement. Will need outpatient urology follow up for removal Minimal pain after 1 dose of morphine. We will continue Tylenol for pain control at this time. Zofran for nausea Patient received Rocephin 2 g for prophylaxis. - WBC downtrending, Kelfex BID to finish course of abx for total of 7 days No LEXUS (2) T2DM (type 2 diabetes mellitus): Ozempic and Farxiga held Sliding scale SSI while admitted N.p.o. pending surgical evaluation Goal BSG [id number], advance to type II DM diet after OR if doing (3) Solitary kidney: -prophylactic abx as above (4) Anxiety: Continue home Ativan (5) Common bile duct stone: Incidental finding on CT scan. Unsure if patient is aware of this, as it was listed on her hx, but patient left the hospital prior to being able to speak to her. Should be followed in the outpatient setting. Plan Patient was cleared by urology early this morning, pending ability to urniate with out pain and no signs of infection. I was waiting for her CBC to come back to be able to trend her WBCs to determine if patient was stable for discharge. Multiple times during the morning I was contacted by RN that patient was dissatisfied with the care she was receiving-related to her diet and not getting her home diabetic medications. Around 1030, I was informed that patient refused her labs and that is why there is no results for me to review. I went up and spoke to the patient and she complained that she had been poked too many times and that her IV site was hurting her and that she did not want to be poked again and that she wanted to go home. I discussed the risk of not repeating the labs with the patient, and she was agreeable to have 1 IV stick to have her labs drawn. Dog Or Animal Sitter was able to obtain ordered labs. When labs resulted, it was reviewed and noted that patient was stable for dis charge. RN also reported to me that patient's was in the hallway yelling at her regarding when discharge would be. I discussed with my attending, Dr. Stein and agreed to see her together prior to discharge. Dr. Stein and I walked into her room around 1430 and no patient or family member was present in the room, all patient belongings were gone. I personally checked the bathroom and she was not in there either. Discussed with RN who also did not see patient leave the building. No discharge instructions were given to patient prior to her departure. Will plan to have nurse navigator mail discharge packet to patient's home. RN removed patient's IV earlier in the day due to pain. Discharge Exam I did not complete a physical exam when I was in the patient's room around 11:00 as I was planning to do so prior to discharge. Unable to complete exam due to patient not being in the room or in the hospital. Updated Medication List Medication Instructions Recorded Confirmed Type aspirin 81 mg tablet,delayed 81 mg PO QAM 06/15/18 03/29/23 History release multivitamin (Daily Multi-Vitamin 1 tab PO QAM 02/12/19 03/29/23 History tablet) lorazepam 0.5 mg tablet 0.5 mg PO TID PRN Anxiety #20 tabs 08/06/22 03/29/23 Rx semaglutide 1 mg/dose (4 mg/3 mL) 1 mg (0.75 mL) subcut .weekly #3 mL 11/06/22 03/29/23 Rx subcutaneous pen injector (Ozempic) potassium citrate 15 mEq (1,620 15 meq PO BID #180 tabs 12/18/22 03/29/23 Rx mg) tablet,extended release cyclobenzaprine 5 mg tablet 5 mg PO DAILY PRN Pain #90 tabs 01/07/23 03/29/23 Rx coenzyme Q10 60 mg capsule 60 mg PO DAILY 02/07/23 03/29/23 History magnesium 250 mg tablet 250 mg PO DAILY 02/07/23 03/29/23 History omega-3 fatty acids-fish oil 684 1 cap PO QAM 02/07/23 03/29/23 History mg-1,200 mg capsule,delayed release dapagliflozin propanediol 10 mg 10 mg PO DAILY #90 tabs 02/11/23 03/29/23 Rx tablet (Farxiga) ezetimibe 10 mg tablet 10 mg PO DAILY #90 tabs 02/14/23 03/29/23 Rx sumatriptan succinate 100 mg tablet See Rx Instructions PO .COMPLEX 03/26/23 03/29/23 Rx #10 tabs cholecalciferol (vitamin D3) 25 25 mcg PO HS 03/29/23 03/29/23 History mcg (1,000 unit) chewable tablet (Vitamin D3) niacin 100 mg tablet 100 mg PO HS 03/29/23 03/29/23 History acetaminophen 325 mg tablet 650 mg (2 x 325 mg) PO Q4H PRN 03/30/23 Rx pain 2 days #1 tab cephalexin 500 mg capsule 500 mg PO BID 6 days #12 caps 03/30/23 Rx Hospital Stay Data Consultations 03/29/23 13:30 ED Decision to Admit Stat 03/29/23 13:31 Consult Urology Stat Procedures Performed Operation Date: 03/29/23 11:25 Actual Procedures p Cystoscopy, Retrograde Pyelogram, Right Ureteral Stent Placement(Right) - Simon Carranza MD Diagnostic Imagining Performed 03/29/23 11:41 CT abd pelvis wo con Stat 03/29/23 13:45 FL retrograde includes kub Routine Pending Results Patient Have Any Pending Studies at Discharge: No Discharge Instructions Given to Patient (Per Discharging Provider) You were hospitalized with a kidney stone that required to have a stent placed. This will have to be removed by urology in the next few weeks. There information to schedule that appointment is in this packet. If you have pain at home, would recommend using tylenol for this. Do not exceed 3000mg in one day. You were prescribed the antibiotic Keflex (cephlahexin) to take to prevent kidney infection. You will take this twice a day for 6 days. There were no changes to your home medications during your stay and you can resume all of your home meds. During your workup here, you had a CT scan done that showed cholelithiasis and choledocholithiasis. These are stones in your gall bladder and the common bile duct. This should be evaluated outpatient after the kidney stent is removed. You should see Dharmesh MURPHY for this, their contact information is below. If you have any fevers, increase in pain, inability to urinated please contact urology or nephrology or return to the ER. It was our pleasure taking care of you. Total Time Total Time Spent Total Time Spent (In Minutes): Greater than 35 minutes spent preparing discharge documentation and coordinating orders with patient's unannounced departure Coding Level of Care Code 79220 INP/OBS DISCH >30 MIN Diagnoses Calculus of proximal right ureter N20.1 Type 2 diabetes mellitus with other diabetic kidney complication, without long- term current use of insulin E11.69 Diabetes mellitus complication status: with other specified complication Diabetes mellitus fdc insulin use: without fdc use Solitary kidney Q60.0 Anxiety F41.9 Common bile duct stone K80.50
[2023-03-30 17:06] VITALS: PULSE 52
== END 2023-03-30 17:06 | disposition home or self-care (01) | DRG 660 ==
LOC: ED 10:22 → OR 13:45 → 3E 13:45 → INTOOBSV 13:50 → 3E 13:50
DX: N20.2 Calculus of kidney with calculus of ureter; Z79.82 Long term (current) use of aspirin; F41.9 Anxiety disorder, unspecified; E11.22 Type 2 diabetes mellitus with diabetic chronic kidney disease; Z79.899 Other long term (current) drug therapy; Q60.0 Renal agenesis, unilateral; K80.50 Calculus of bile duct without cholangitis or cholecystitis without obstruction; N18.30 Chronic kidney disease, stage 3 unspecified